=== PATIENT | male | born 1960 | race Caucasian/White ===

== ENCOUNTER 2017-07-20 00:06 | Emergency (ER) | payer BC, OTHER ==
--- NOTE | 2017-07-20 00:57 | EDM.PDOC ---
ED HPI GENERAL MEDICAL PROBLEM - General Chief Complaint: Eye Problems Stated Complaint: SOMETHING IN LEFT EYE Time Seen by Provider: 07/20/17 00:50 - History of Present Illness INITIAL COMMENTS - FREE TEXT/NARRATIVE: 56-year-old male presents emergency room he thinks he got some in his left eye. Patient noted some irritation in his left eye this started midafternoon. His son looked in there and saw something in his eye. The patient cannot recall exactly what was he remembered rubbing his eyes with some gloves on. The patient has an area of fuzziness in his lower vision field. Left Eye Pain Score (Numeric/FACES): 6 - Related Data Allergies Allergy/AdvReac Type Severity Reaction Status Date / Time azithromycin Allergy Diarrhea Verified 07/20/17 00:21 [From Zithromax Z-Meliton] ED ROS GENERAL - Review of Systems Review Of Systems: See Below Constitutional: Reports: No Symptoms HEENT: Reports: Eye Pain, Other Respiratory: Reports: No Symptoms Cardiovascular: Reports: No Symptoms Endocrine: Reports: No Symptoms GI/Abdominal: Reports: No Symptoms : Reports: No Symptoms ED EXAM GENERAL W FULL EYE - Physical Exam Exam: See Below Exam Limited By: No Limitations General Appearance: Alert, No Apparent Distress Eye Exam: Left Eye: Foreign Body (This looks like is developing a rust ring), Bilateral Eye: PERRL Eyelids: Bilateral: Normal Appearance Conjunctiva & Sclera: Left: Injected (Mild) Cornea Exam: Left: Foreign Body (No corneal abrasions other than the foreign body noted) Extraocular Movements: Bilateral: Intact Pupils: Normal Accommodation Anterior Chamber: Bilateral: Normal Appearance Respiratory/Chest: Lungs Clear, Normal Breath Sounds, No Accessory Muscle Use Cardiovascular: Normal Peripheral Pulses, Regular Rate, Rhythm, No Edema ED EYE w/ Add Procedure - Eye Procedure Alcaine Drops Administered: No (Repair [place] used) Eye FB Removal: Other (Removed with the eye spud, restaurant taken down with the jean-claude without ) Antibiotic Oinment/Drps Admin: Left Eye (Patient is allergic to erythromycin) - Additional/Other Procedure(s) Other (Free Text) Procedure(s) [Text1]: Left eye was examined using slit-lamp floor seen used examined with cobalt blue light no abrasions or lacerations identified other than the foreign body using clear light with slit-lamp floor body was removed in a couple of small pieces the jean-claude was then used to clean up the rust ring without difficulty. Patient tolerated this without difficulty unfortunately the patient is allergic to erythromycin erythromycin ointment not used no other ointment available in the hospital Course - Vital Signs Last Recorded V/S: Last Vital Signs Temp 36.7 C 07/20/17 00:19 Pulse 73 07/20/17 00:19 Resp 16 07/20/17 00:19 BP 144/84 H 07/20/17 00:19 Pulse Ox 99 07/20/17 00:19 - Orders/Labs/Meds Meds: Medications Discontinued Medications Generic Name Dose Route Start Last Admin Trade Name Antoinette PRN Reason Stop Dose Admin Hydrocodone Bitart/Acetaminophen 1 tab 07/20/17 01:51 [place] 325-5 Mg PO 07/20/17 01:52 ONETIME ONE Fluorescein Sodium/Benoxinate HCl 0.5 ml 07/20/17 01:03 Fluress Ophth Soln EYEBOTH 07/20/17 01:04 ONETIME ONE Proparacaine HCl 0.5 ml 07/20/17 01:04 Proparacaine 0.5% Ophth Soln EYEBOTH 07/20/17 01:05 ONETIME ONE Departure - Departure Time of Disposition: 02:14 Disposition: Home, Self-Care 01 Clinical Impression: Corneal foreign body, Corneal rust ring of left eye - Discharge Information Referrals: Liberty Palmer PA-C [Primary Care Provider] - Forms: ED Department Discharge Additional Instructions: Follow-up with your eye doctor later today. Return to the emergency room with any questions or prob. Your given some hydrocodone from the machine in the waiting room #20 one or 2 every 4-6 hours as needed for pain. Allow 12 hours after using this medication before driving or returning to work. supervisor gear repair some artificial tears and use liberally in the left eye to keep it good and moist.
[2017-07-20] MEDS ORDERED: Benoxinate/Fluorescein 0.4-0.25% Ophth Soln 5 ML Bottle EYEBOTH ONE (01:03)
[2017-07-20] MEDS ORDERED: Proparacaine 0.5% Ophth Soln 15 ML Bottle EYEBOTH ONE (01:04)
[2017-07-20] MEDS ORDERED: Acetaminophen/HYDROcodone 325-5 MG Tab PO ONE (01:51)
== END 2017-07-20 02:25 | disposition home or self-care (01) ==
LOC: JD.ED 00:06
DX: T15.02XA Foreign body in cornea, left eye, initial encounter (principal); Z88.1 Allergy status to other antibiotic agents
CPT/HCPCS: 65222; 99283; A9270

== ENCOUNTER 2018-05-04 11:33 | Emergency (ER) | payer OTHER ==
[2018-05-04] MEDS ORDERED: Lactated Ringers 1,000 ML IV SCH (11:45)
[2018-05-04] MEDS ORDERED: Lactated Ringers 500 ML IV ONE (11:45)
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
--- NOTE | 2018-05-06 08:14 | CT ---
Head CT Technique: Multiple axial sections through the brain were obtained. Intravenous contrast was not utilized. Comparison: No prior intracranial imaging. Findings: Ventricles along the basal cisterns and sulci over the convexities are within normal limits for the patient's age. No abnormal parenchymal densities are seen. No evidence of intracranial hemorrhage. No midline shift or mass effect is seen. Bone window settings were reviewed which show no acute calvarial abnormality. Moderate mucosal thickening is seen with left maxillary sinuses as well as opacification of left-sided sphenoid sinus. Mild mucosal thickening is seen within the ethmoid sinuses. Impression: 1. Sinus disease which is most likely chronic. 2. No acute intracranial abnormality is seen. Diagnostic code #2 I agree with preliminary report from [facility], finalized on 05/04/18, 1:27 PM Central Time
--- NOTE | 2018-05-06 09:33 | CT ---
CT chest Technique: Multiple axial sections were obtained from above the lung apices inferiorly through the lung bases. Intravenous contrast was utilized. Comparison: No prior chest imaging. Findings: Mediastinum and hilar region show no adenopathy or mass. No mediastinal abnormalities are appreciated. Aorta shows no discrete aneurysm. No axillary adenopathy is seen. No pericardial thickening is seen. Lungs show no acute parenchymal change. Incidental azygos lobe is seen. No pleural effusions or pneumothorax are seen. Bone window settings were reviewed which show no discrete discrete rib fracture. Vertebral body heights and disc spaces are preserved within the thoracic spine. Lateral reconstructed views of the sternum appear intact. Impression: 1. Incidental findings. Nothing acute is identified on CT study of the chest. Diagnostic code #2 I agree with preliminary report from [facility], finalized on 05/04/18, 1:[address] abdomen and pelvis Technique: Multiple axial sections were obtained from above the dome of the diaphragm inferiorly through the pubic symphysis. Intravenous contrast was utilized. No oral contrast was utilized. Delayed images were also obtained through the abdomen and pelvis. Comparison: No prior abdominal imaging is available. Findings: Artifact noted from the patient's arms being along his side. Liver shows no discrete abnormality. Spleen appears within normal limits. Gallbladder contains no calcified gallstones. Adrenal glands appear intact. Pancreas appears within normal limits. Kidneys show symmetric contrast enhancement without hydronephrosis or mass. Atherosclerotic calcification is noted within the aorta which shows no aneurysm. No retroperitoneal adenopathy or mesenteric abnormalities are seen. No pelvic mass or adenopathy is seen. No free fluid or inflammatory change is seen. Appendix is visualized and is felt to be within normal limits. Bone window settings were reviewed which show no discrete pelvic or hip fracture. Disc space narrowing and vacuum phenomena is seen within the L5-S1 disc. Slight vacuum phenomena noted within the L4-L5 disc. Degenerative change is noted within the lower apophyseal joints within the lumbar spine. No acute osseous abnormality appreciated within the lumbar spine. Impression: 1. Incidental findings. Nothing acute is appreciated on CT study of the abdomen and pelvis. Diagnostic code #2 I agree with preliminary report from [facility], finalized on 05/04/18, 1:39 PM Central Time
--- NOTE | 2018-05-06 09:46 | CT ---
CT cervical spine Technique: Multiple axial sections were obtained from above C1 inferiorly to the bottom of T2. Reconstructed sagittal and coronal images were reviewed. Comparison: No prior cervical spine imaging. Findings: Moderate disc space narrowing is noted at C6-C7. Posterior osteophytes are noted at C4-C5, C5-C6 and C6-C7. Anterior osteophytes are most prominent at C6-C7. Apophyseal joints show mild scattered degenerative change. Mucosal thickening is seen within the left maxillary sinus as well as sphenoid sinus. No fracture is seen. No bony central or bony neural foraminal is seen. No abnormal subluxation is seen. Atherosclerotic calcification is noted within the carotid bulb on both sides. Impression: 1. Sinus disease most likely chronic. 2. Mild degenerative change. 3. No acute abnormality is appreciated on CT study of the cervical spine. Diagnostic code #2 I agree with preliminary report from [facility], finalized on 05/04/18, 2:21 PM Central Time
== END 2018-05-04 14:45 | disposition home or self-care (01) ==
LOC: JD.ED 11:33 → SUPCPDRO 11:33 → JD.ED 14:45
DX: S16.1XXA Strain of muscle, fascia and tendon at neck level, initial encounter (principal); V89.2XXA Person injured in unspecified motor-vehicle accident, traffic, initial encounter; Z88.1 Allergy status to other antibiotic agents
CPT/HCPCS: 36415; 70450; 71260; 72125; 74177; 80053; 81001; 83690; 85007; 85027; 93005; 96360; 96361; 99285; J7120; 99283

== ENCOUNTER 2020-06-06 18:00 | Emergency (ER) | payer OTHER ==
[2020-06-06] MEDS ORDERED: Metoclopramide 10 MG/2 ML SDV IVPUSH ONE (18:23)
[2020-06-06] MEDS ORDERED: diphenhydrAMINE 50 MG/ML SDV IVPUSH ONE (18:23)
[2020-06-06] MEDS ORDERED: Pantoprazole 40 MG Vial IVPUSH ONE (18:26)
[2020-06-06] MEDS ORDERED: Famotidine 20 MG/2 ML SDV IVPUSH PRN (18:27)
[2020-06-06] MEDS ORDERED: EPINEPHrine 1 MG/ML SDV IM PRN (18:27)
[2020-06-06] MEDS ORDERED: diphenhydrAMINE 50 MG/ML SDV IVPUSH PRN (18:27)
[2020-06-06] MEDS ORDERED: methylPREDNISolone Sodium Succinate 125 MG/2 ML SDV IVPUSH PRN (18:27)
[2020-06-06] MEDS ORDERED: Dextrose 5%-Lactated Ringers 1,000 ML IV SCH (18:30)
[2020-06-06] MEDS ORDERED: Sodium Chloride 0.9% 10 ML Syringe FLUSH SCH (18:30)
--- NOTE | 2020-06-06 18:31 | EDM.PDOC ---
<Samuel Davis - Last Filed: 06/06/20 22:25> ED HPI GENERAL MEDICAL PROBLEM - General Chief Complaint: Gastrointestinal Problem Stated Complaint: VOMITING X17HR/COVID+ Time Seen by Provider: 06/06/20 18:12 - Related Data Allergies Allergy/AdvReac Type Severity Reaction Status Date / Time azithromycin Allergy Diarrhea Verified 06/06/20 18:11 [From Zithromax Z-Meliton] Home Meds: Home Meds Escitalopram [Lexapro] 20 mg PO DAILY 05/04/18 [History] Fluticasone Propionate [Flonase Allergy Relief] 2 spray NASBOTH DAILY 05/04/18 [History] Tamsulosin HCl [Flomax] 2 cap PO DAILY 05/04/18 [History] atorvaSTATin [Lipitor] 20 mg PO DAILY 05/04/18 [History] Course - Re-Assessments/Exams Free Text/Narrative Re-Assessment/Exam: 06/06/20 19:[address] Palma. I agree with the history and physical examination as documented. Portable chest radiograph reviewed. The cardiac silhouette is within normal limits. No pulmonary vascular congestion. No pleural effusions seen on this AP view. There are increased patchy densities noted bilaterally, worse on the left than the right. No pneumothorax. Formal read per the Radiologist pending. The patient has not yet provided a urine sample for the urinalysis. 06/06/20 21:48 Notified that the patient's infusion has finished. I reevaluated the patient. He states that he feels well, with no nausea. I will discharge him home with an [facility] prescription for Zofran. I would like him to notify the office of his PCP in the morning, to let them know about his ED visit. Departure - Departure Time of Disposition: 21:50 Disposition: Home, Self-Care 01 Condition: Good Clinical Impression: Pneumonia due to COVID-19 virus - Discharge Information *PRESCRIPTION DRUG MONITORING PROGRAM REVIEWED*: Not Applicable *COPY OF PRESCRIPTION DRUG MONITORING REPORT IN PATIENT TOBY: Not Applicable Instructions: COVID-19 Referrals: Liberty Palmer PA-C [Primary Care Provider] - Forms: ED Department Discharge Additional Instructions: You were seen in the emergency room for nausea and vomiting after being diagnosed with COVID-19. Work-up in the ER included numerous blood tests, a chest x-ray, and an ECG. Your chest x-ray found infiltrates in both of your lungs, consistent with COVID- 19 pneumonia. The remainder of your work-up was unremarkable. You were treated with an infusion of the combined medications bamlanivab and etesevimab. These medications have been emergency approved by the FDA for treatment of certain patients with COVID-19, however, as discussed, there is no guarantee that they are effective. You have been given an [facility] prescription for the antinausea medicine Zofran ODT. You may dissolve 1 tablet of Zofran ODT on your tongue up to every 8 hours, as needed for nausea/vomiting. Stay adequately hydrated. Gatorade or Powerade are best. We recommend that you notify the office of your PCP, FRANCIA Ojeda, in the morning, of your ER visit. It is important that you strictly quarantine for 10 days after you were diagnosed with COVID-19, at which time you should be retested for the virus. You should be exposed to anyone outside of your household until you test negative. If any other problems, please do not hesitate to return to the ER. <Everett Palma - Last Filed: 06/07/20 07:07> ED HPI GENERAL MEDICAL PROBLEM - General Source of Information: Reports: Patient History Limitations: Reports: No Limitations - History of Present Illness INITIAL COMMENTS - FREE TEXT/NARRATIVE: 59-year-old male presents to the ED due to persistent nausea and vomiting for greater than 17 hours. Emesis has been bilious without any blood. He cannot keep anything down including Tylenol for fever relief. He was diagnosed with COVID-19 positivity on June 03. He felt ill for perhaps 2 to 3 days before this indicating his disease process probably started on June 01. His 2 is positive and was tested positive the same day as him. He has a paroxysmal somewhat productive sounding cough although he indicates sputum is white with no blood. Continues to have fever and chills. Minimal diarrhea he states once perhaps twice per day for the last 2 days. He works for the [employer] here in [place]. He states he takes no medications from a doctor. Denies any allergies to medications. States his abdomen is sore in the epigastrium from vomiting so much. His throat and back of his throat are dry and somewhat sore as well. He is feeling a little lightheaded and dizzy with standing. Usually enjoys good health. Onset: Sudden Onset Date: 06/01/20 (Still positive for COVID-19 illness on June 03. Symptoms developed about 2 days before that with mild sore throat and nasal congestion) Duration: Day(s):, Getting Worse, Other Location: Reports: Abdomen (Early experiencing intractable nausea and vomiting. Her abdominal discomfort from vomiting so much. Associate with intractable nausea and vomiting for the last 17 hours.), Other (Paroxysmal somewhat productive sounding cough. Generalized myalgia mild headache and fever.) Quality: Reports: Other (Febrile with chills particularly at the initial onset of illness. Still has mild headache.) Severity: Moderate Improves with: Reports: None Worsens with: Reports: Other (And to drink or eat anything.) Context: Reports: Other (COVID-19 illness). Denies: Activity, Exercise, Lifting, Sick Contact, Trauma Associated Symptoms: Reports: Chest Pain, Cough, cough w sputum (Only from coughing), Diaphoresis (More so at the initial onset of illness), Fever/Chills, Loss of Appetite, Malaise ( white sputum), Nausea/Vomiting ( night June 03.), Shortness of Breath, Weakness. Denies: Confusion, Headaches, Rash, Seizure ( Tractable nausea and vomiting for the last 17 hours.), Syncope Treatments SNUFF MAKER: Reports: Acetaminophen (He will not stay down the last day or 2.) Abdomen Pain Score (Numeric/FACES): 7 Past Medical History HEENT History: Reports: Allergic Rhinitis (Chronic allergic rhinitis), Hard of Hearing, Impaired Vision Other HEENT History: wears eyeglasses, wears hearing aides. Cardiovascular History: Reports: High Cholesterol, Hypertension Respiratory History: Reports: Other (See Below) Other Respiratory History: punctured lung from broken rib. Gastrointestinal History: Reports: Other (See Below) Other Gastrointestinal History: C-diff Genitourinary History: Reports: Prostate Disorder (He is on tamsulosin.), Other (See Below) Other Genitourinary History: enlarged prostate Musculoskeletal History: Reports: Fracture Psychiatric History: Reports: Anxiety (Been on Lexapro for depression anxiety for a long time.), Depression - Infectious Disease History Infectious Disease History: Reports: C-Difficile, Novel Coronavirus Social & Family History - Tobacco Use Tobacco Use Status *Q: Never Tobacco User Second Hand Smoke Exposure: No - Caffeine Use Caffeine Use: Reports: Coffee - Recreational Drug Use Recreational Drug Use: No - Living Situation & Occupation Living situation: Reports: Occupation: Employed ED ROS GENERAL - Review of Systems Review Of Systems: See Below Constitutional: Reports: Fever, Chills, Malaise, Weakness, Fatigue, Decreased Appetite, Weight Loss HEENT: Reports: Glasses, Rhinitis (Chronic allergic rhinitis and uses Flonase as needed), Sinus Problem, Throat Pain (Mild sinus congestion throat pain from vomiting so much) Respiratory: Reports: Shortness of Breath, Cough, Sputum. Denies: Wheezing, Pleuritic Chest Pain, Hemoptysis (Paroxysmal cough with occasional white sputum production) Cardiovascular: Reports: Lightheadedness. Denies: Chest Pain, Blood Pressure Problem, Claudication, Dyspnea on Exertion, Edema, Orthopnea, Palpitations Endocrine: Reports: Fatigue GI/Abdominal: Reports: Abdominal Pain, Diarrhea (Mild diarrhea once or twice per day small quantity stools.), Nausea, Vomiting (Has not been able to stop vomiting for the last 17 hours). Denies: Hematemesis, Hematochezia, Melena, Stool Incontinence : Reports: Other (Urine is dark diana in color) Musculoskeletal: Reports: Muscle Pain Skin: Reports: No Symptoms (Neurolyse myalgia) Neurological: Reports: Dizziness, Headache, Difficulty Walking (The due to weakness.), Weakness. Denies: Numbness, Syncope, Tingling, Trouble Speaking, Gait Disturbance, Other Psychiatric: Reports: Anxiety, Depression Hematologic/Lymphatic: Reports: No Symptoms Immunologic: Reports: No Symptoms (Of depression but he states he is no longer taking Escitalopram.) ED EXAM, GI/ABD - Physical Exam Exam: See Below Exam Limited By: No Limitations General Appearance: Alert, WD/WN, Anxious (Mildly anxious.), Mild Distress, Other (Patient is very warm to palpation. Temperature is 36.4 but he feels much warmer than this. Heart rate is 86 and sinus respiratory to 16 with O2 sats of 95% room air. BP is 143/78) Eyes: Bilateral: Normal Appearance (No scleral icterus or blepharal pallor.) Ears: Normal TMs Throat/Mouth: Other Head: Atraumatic, Normocephalic (Tongue is very dry and coated. No exudate in the oropharynx.) Neck: Normal Inspection, Supple, Non-Tender, Full Range of Motion. No: Carotid Bruit, Lymphadenopathy (L), Lymphadenopathy (R) Respiratory/Chest: Lungs Clear, Normal Breath Sounds, No Accessory Muscle Use, Respiratory Distress (Mild tachypnea at rest). No: Rhonchi, Wheezing Cardiovascular: Normal Peripheral Pulses, Regular Rate, Rhythm, No Edema, No Gallop, No JVD, No Murmur GI/Abdominal Exam: Normal Bowel Sounds, Soft, No Organomegaly, No Mass, Pelvis Stable, Tender (Mild tenderness to palpation in the epigastrium appears to be musculoskeletal in origin.), Other (Male) Exam: No Hernia (No surgical scars) Back Exam: Normal Inspection. No: CVA Tenderness (L), CVA Tenderness (R) Extremities: Normal Inspection, Normal Range of Motion, Non-Tender, No Pedal Edema Neurological: Alert, Oriented, CN II-XII Intact, Normal Cognition Psychiatric: Normal Affect, Normal Mood, Anxious Skin Exam: Warm (Mildly anxious.), Dry, Intact, Normal Color, No Rash #1 Interpretation EKG Date: 06/06/20 Time: 18:53 Rhythm: NSR Rate (Beats/Min): 90 (Occasional PVCs occasionally impaired) [place]: Normal P-Wave: Present QRS: Normal ST-T: Other (Nonspecific T wave flattening in leads III and aVF) QT: Normal Course - Vital Signs Last Recorded V/S: Last Vital Signs Temp 36.6 C 06/06/20 22:20 Pulse 77 06/06/20 22:20 Resp 16 06/06/20 22:20 BP 125/73 06/06/20 22:20 Pulse Ox 96 06/06/20 22:20 - Orders/Labs/Meds Orders: Active Orders 24 hr Category Date Time Status CULTURE BLOOD [BC] Stat Lab 06/06/20 18:45 Received CULTURE BLOOD [BC] Stat Lab 06/06/20 18:55 Received URINALYSIS W/MICROSCOPIC [UA W/MICROSCOPIC] [URIN] Stat Lab 06/06/20 18:25 Ordered Blood Culture x2 Reflex Set [OM.PC] Stat Oth 06/06/20 18:25 Ordered Labs: Laboratory Tests 06/06/20 06/06/20 06/06/20 Range/Units 18:20 18:20 18:20 WBC 5.13 (4.23-9.07) K/mm3 RBC 4.31 L (4.63-6.08) M/mm3 Hgb 12.4 L (13.7-17.5) gm/dl Hct 36.9 L (40.1-51.0) % MCV 85.6 D (79.0-92.2) fl MCH 28.8 (25.7-32.2) pg MCHC 33.6 (32.2-35.5) g/dl RDW Std Deviation 44.8 H (35.1-43.9) fL Plt Count 186 (163-337) K/mm3 MPV 9.4 (9.4-12.3) fl Neut % (Auto) 87.7 H (34.0-67.9) % Lymph % (Auto) 7.6 L (21.8-53.1) % [place] % (Auto) 4.5 L (5.3-12.2) % Eos % (Auto) 0 L (0.8-7.0) Baso % (Auto) 0.2 (0.1-1.2) % Neut # (Auto) 4.50 (1.78-5.38) K/mm3 Lymph # (Auto) 0.39 L (1.32-3.57) K/mm3 [place] # (Auto) 0.23 L (0.30-0.82) K/mm3 Eos # (Auto) 0.00 L (0.04-0.54) K/mm3 Baso # (Auto) 0.01 (0.01-0.08) K/mm3 PT 11.0 (9.7-12.0) SECONDS INR 1.03 APTT 34.0 H (21.7-31.4) SECONDS D-Dimer, Quantitative 1.13 H (0.19-0.50) mg/L Sodium 144 (136-145) mEq/L Potassium 3.4 L (3.5-5.1) mEq/L Chloride 107 (98-107) mEq/L Carbon Dioxide 23 (21-32) mEq/L Anion Gap 17.4 H (5-15) BUN 22 H (7-18) mg/dL Creatinine 1.1 (0.7-1.3) mg/dL Est Cr Clr Drug Dosing 69.27 mL/min Estimated GFR (MDRD) > 60 (>60) mL/min BUN/Creatinine Ratio 20.0 H (14-18) Glucose 114 H (74-106) mg/dL Calcium 8.0 L (8.5-10.1) mg/dL Magnesium 2.1 (1.8-2.4) mg/dl Ferritin (26-388) ng/ml Total Bilirubin 0.6 (0.2-1.0) mg/dL AST 38 H (15-37) U/L ALT 20 (16-63) U/L Alkaline Phosphatase 68 (46-116) U/L Lactate Dehydrogenase 355 H (85-227) U/L Troponin I < 0.017 (0.00-0.056) ng/mL C-Reactive Protein 17.2 H* (<1.0) mg/dL NT-Pro-B Natriuret Pep (0-125) pg/mL Total Protein 7.2 (6.4-8.2) g/dl Albumin 3.2 L (3.4-5.0) g/dl Globulin 4.0 gm/dL Albumin/Globulin Ratio 0.8 L (1-2) Lipase 262 (73-393) U/L 06/06/20 06/06/20 Range/Units 18:20 18:20 WBC (4.23-9.07) K/mm3 RBC (4.63-6.08) M/mm3 Hgb (13.7-17.5) gm/dl Hct (40.1-51.0) % MCV (79.0-92.2) fl MCH (25.7-32.2) pg MCHC (32.2-35.5) g/dl RDW Std Deviation (35.1-43.9) fL Plt Count (163-337) K/mm3 MPV (9.4-12.3) fl Neut % (Auto) (34.0-67.9) % Lymph % (Auto) (21.8-53.1) % [place] % (Auto) (5.3-12.2) % Eos % (Auto) (0.8-7.0) Baso % (Auto) (0.1-1.2) % Neut # (Auto) (1.78-5.38) K/mm3 Lymph # (Auto) (1.32-3.57) K/mm3 [place] # (Auto) (0.30-0.82) K/mm3 Eos # (Auto) (0.04-0.54) K/mm3 Baso # (Auto) (0.01-0.08) K/mm3 PT (9.7-12.0) SECONDS INR APTT (21.7-31.4) SECONDS D-Dimer, Quantitative (0.19-0.50) mg/L Sodium (136-145) mEq/L Potassium (3.5-5.1) mEq/L Chloride (98-107) mEq/L Carbon Dioxide (21-32) mEq/L Anion Gap (5-15) BUN (7-18) mg/dL Creatinine (0.7-1.3) mg/dL Est Cr Clr Drug Dosing mL/min Estimated GFR (MDRD) (>60) mL/min BUN/Creatinine Ratio (14-18) Glucose (74-106) mg/dL Calcium (8.5-10.1) mg/dL Magnesium (1.8-2.4) mg/dl Ferritin 247 (26-388) ng/ml Total Bilirubin (0.2-1.0) mg/dL AST (15-37) U/L ALT (16-63) U/L Alkaline Phosphatase (46-116) U/L Lactate Dehydrogenase (85-227) U/L Troponin I (0.00-0.056) ng/mL C-Reactive Protein (<1.0) mg/dL NT-Pro-B Natriuret Pep 94 (0-125) pg/mL Total Protein (6.4-8.2) g/dl Albumin (3.4-5.0) g/dl Globulin gm/dL Albumin/Globulin Ratio (1-2) Lipase (73-393) U/L Meds: Medications Discontinued Medications Generic Name Dose Route Start Last Admin Trade Name Freq PRN Reason Stop Dose Admin Acetaminophen 975 mg 06/06/20 18:50 06/06/20 18:51 Acetaminophen 325 Mg Tab PO 06/06/20 18:51 975 mg ONETIME ONE Administration Diphenhydramine HCl 25 mg 06/06/20 18:23 06/06/20 18:47 Diphenhydramine 50 Mg/Ml Sdv IVPUSH 06/06/20 18:24 25 mg ONETIME ONE Administration Diphenhydramine HCl 50 mg 06/06/20 18:27 Diphenhydramine 50 Mg/Ml Sdv IVPUSH 06/07/20 18:28 ONETIME PRN hypersensitivity reaction Epinephrine HCl 0.3 mg 06/06/20 18:27 Epinephrine 1 Mg/Ml Sdv IM 06/07/20 18:28 ONETIME PRN hypersensitivity reaction Famotidine 20 mg 06/06/20 18:27 Famotidine 20 Mg/2 Ml Sdv IVPUSH 06/07/20 18:28 ONETIME PRN hypersensitivity reaction Dextrose/Lactated Ringer's 1,000 mls @ 999 mls/hr 06/06/20 18:30 06/06/20 18:45 Dextrose 5%-Lactated Ringers IV 999 mls/hr ASDIRECTED TORI Administration Bamlanivimab 700 mg/ 310 mls @ 310 mls/hr 06/06/20 19:30 06/06/20 19:48 Etesevimab 1,400 mg/ Sodium IV 06/06/20 20:29 310 mls/hr Chloride ONETIME ONE Administration Methylprednisolone Sodium Succinate 125 mg 06/06/20 18:27 Methylprednisolone Sodium Succinate 125 Mg/2 Ml Sdv IVPUSH 06/07/20 18:28 ONETIME PRN hypersensitivity reaction Metoclopramide HCl 10 mg 06/06/20 18:23 06/06/20 18:38 Metoclopramide 10 Mg/2 Ml Sdv IVPUSH 06/06/20 18:24 10 mg ONETIME ONE Administration Pantoprazole Sodium 40 mg 06/06/20 18:26 06/06/20 18:40 Pantoprazole 40 Mg Vial IVPUSH 06/06/20 18:27 40 mg ONETIME ONE Administration Sodium Chloride 30 ml 06/06/20 18:30 Sodium Chloride 0.9% 10 Ml Syringe FLUSH 06/07/20 18:31 ASDIRECTED TORI - Radiology Interpretation Free Text/Narrative:: 59-year-old male presents to the ED with intractable nausea and vomiting for the last 17 hours. Patient became ill on June 01 and tested positive for COVID-19 illness on June 03. His was tested positive the same day. He has paroxysmal minimally productive cough. Generalized myalgia and headache. He has minimal diarrhea 1-2 minimal loose stools the last day or 2. Emesis has been bilious without blood. Upper abdominal discomfort from vomiting so much. His O2 sats are 95% on room air. He is a candidate for monoclonal antibody therapy. We spoke at length about this and he has accepted this plan of action. He will have a portable chest x-ray. Routine labs including LDH, D- dimer, serum troponin and ECG to be done. Plan IV will be D5 LR at open. He will be given Reglan 10 mg IV and Benadryl 25 mg IV as he is taking Lexapro daily. This is to prevent any dystonic reaction between Reglan and Lexapro. He will be given Tylenol 9 7 5 mg by mouth 20 minutes after the Reglan to help bring down his fever. He is a candidate for monoclonal antibody therapy mainly due to mild hypertension. . Currently we are using a combination of bamlanivab and etesevimab these medications have been authorized by the FDA for emergency use. I have discussed the use of these medications with the patient Mr. Irwin Jacobs and he agrees to accept the risks. Given the patient the fax sheet to read about a combination monoclonal antibody therapy. I stated the drug has been approved by an emergency use authorization process and has not been fully vetted by the FDA reviewed or approved at this time. The patient meets the EUA requirements by way of his mild hypertension. I discussed there are other potential treatment options that are currently not FDA approved to treat COVID- 19. Offered opportunity to ask questions and out questions were answered. The patient Mr. Irwin Jacobs voiced understanding and agreed to proceed with treatment. - Re-Assessments/Exams Free Text/Narrative Re-Assessment/Exam: 06/06/20 19:09 White count is normal at 5.13. It does show a left shift of 87.7% neutrophils on the auto differential. Hemoglobin is 12.4 with hematocrit of 36.9 platelet count 186,000. PT is 11.0. INR is 1.03. PTT is 34.0 mildly elevated D-dimer is mildly elevated at 1.13. Sodium is 144 with a potassium of 3.4 slightly low. Chloride is 107 with a bicarb of 23. Anion gap is 17.4. BUN is 22 with a creatinine of 1.1 and a GFR greater than 60. Leukos is 114 mildly elevated calcium is 8.0. Magnesium is 2.1. Serum ferritin is 247 total bilirubin is 0.6 AST is 38 ALT is 20. Alk phosphatase is 68. LDH is elevated at 355 troponin I is less than 0.017 C-reactive protein is markedly elevated at 17.2. BNP is 94 total protein 7.2 with an albumin fraction of 3.2. Lipase is normal at 262. Chest x-ray is pending. Care will be turned over to Dr. Davis as it is change of shift. He will monitor the patient for any adverse effects to combination infusion outpatient monoclonal antibody therapy. Peers the patient will need at least a liter of IV fluid to help correct his anion gap. At this point time is up in the air as to whether or not he needs hospital admission. 06/07/20 07:06 Single portable chest x-ray was completed. It does reveal bilateral pneumonia particularly involving the right perihilar right middle lobe right lower lobe and the left lower lobe of the lung. Sepsis Event Note (ED) - Evaluation Sepsis Screening Result: No Definite Risk - Focused Exam Vital Signs: Vital Signs Temp Pulse Resp BP Pulse Ox 06/06/20 22:20 36.6 C 77 16 125/73 96 06/06/20 20:50 37.8 C 06/06/20 20:46 74 16 119/74 94 L 06/06/20 20:30 73 16 113/70 98 06/06/20 20:15 84 16 116/69 94 L 06/06/20 20:00 74 16 124/73 94 L 06/06/20 19:43 38.1 C 74 18 138/72 94 L - My Orders Last 24 Hours: My Active Orders 06/06/20 18:25 URINALYSIS W/MICROSCOPIC [UA W/MICROSCOPIC] [URIN] Stat Blood Culture x2 Reflex Set [OM.PC] Stat 06/06/20 18:45 CULTURE BLOOD [BC] Stat 06/06/20 18:55 CULTURE BLOOD [BC] Stat - Assessment/Plan Last 24 Hours: My Active Orders 06/06/20 18:25 URINALYSIS W/MICROSCOPIC [UA W/MICROSCOPIC] [URIN] Stat Blood Culture x2 Reflex Set [OM.PC] Stat 06/06/20 18:45 CULTURE BLOOD [BC] Stat 06/06/20 18:55 CULTURE BLOOD [] Stat
[2020-06-06] MEDS ORDERED: Acetaminophen 325 MG Tab PO ONE (18:50)
--- NOTE | 2020-06-06 19:45 | CR ---
Chest: Portable view of the chest was obtained. Comparison: Prior chest CT study of 05/04/18. Patchy areas of increased density are noted within both upper and lower lungs. Findings are worse on the left side. Heart size and mediastinum are normal. Bony structures show nothing acute. Impression: 1. Patchy areas of increased density on both sides of the chest compatible with Covid pneumonia. Diagnostic code #3
== END 2020-06-06 22:20 | disposition home or self-care (01) ==
LOC: JD.ED 18:00
DX: U07.1 COVID-19 (principal); J12.82 Pneumonia due to coronavirus disease 2019; I10 Essential (primary) hypertension; E78.00 Pure hypercholesterolemia, unspecified; Z79.899 Other long term (current) drug therapy; Z88.1 Allergy status to other antibiotic agents
CPT/HCPCS: 36415; 71045; 80053; 82728; 83615; 83690; 83735; 83880; 84484; 85025; 85379; 85610; 85730; 86140; 87040; 93005; 96374; 96375; 99284; A9270; C9113; J1200; J2765; J7050; J7121; M0245; Q0239; Q0245; 93010

== ENCOUNTER 2020-06-10 09:15 | Inpatient (IN) | payer OTHER ==
[2020-06-10] MEDS ORDERED: Dextrose 5%-0.9% NaCl 1,000 ML IV SCH (09:45)
--- NOTE | 2020-06-10 09:48 | EDM.PDOC ---
ED HPI GENERAL MEDICAL PROBLEM - General Chief Complaint: Respiratory Problem Stated Complaint: LOW O2/COVID + Time Seen by Provider: 06/10/20 09:30 Source of Information: Reports: Patient History Limitations: Reports: No Limitations - History of Present Illness INITIAL COMMENTS - FREE TEXT/NARRATIVE: 59-year-old male who presents with COVID-19 illness. He believes that he became sick on May 30. Tested positive on June 03 as did his . He was treated with combination clonal antibody therapy on that date. He still has a severe paroxysmal cough to the point of near syncope at times. His appetite is coming back. No further diarrhea. He presents little more short of breath than he had been. O2 sats initially were 91% when he came into the ED. Chest x-ray done last June 07 revealed fairly set for significant pneumonia bilaterally. His O2 sats at that time were around 94-95%. Still feels generally weak. Lightheaded and dizzy upon standing especially if he coughs at the same time. Feels fever has abated. No further chills. Onset: Sudden Onset Date: 05/30/20 (Set of fever chills headache compatible with COVID-19 illness. Confirmed positive on June 03.) Duration: Day(s):, Constant, Getting Worse Location: Reports: Chest (Severe paroxysmal nonproductive cough), Other (Mildly decreased appetite. No further diarrhea or vomiting.) Quality: Reports: Other Severity: Moderate (Still has mild generalized myalgia.) Improves with: Reports: Medication (Motrin and Tylenol bring down the temperature.) Worsens with: Reports: Other Context: Reports: Other. Denies: Activity, Exercise (Coughing is worse with certain movements.), Lifting, Sick Contact, Trauma Associated Symptoms: Reports: Chest Pain, Cough (Coughing so much.), Fever/Chills (Grade fever), Headaches, Loss of Appetite, Malaise, Nausea/Vomiting, Shortness of Breath, Weakness (Initially did have nausea vo miting and some diarrhea but this has abated.). Denies: Confusion (Spontaneous occurrence.), cough w sputum, Diaphoresis, Rash, Seizure, Syncope Treatments [employer] WORK[employer]: Reports: Acetaminophen, NSAIDS (Ultram.) Headache Pain Score (Numeric/FACES): 4 - Related Data Allergies Allergy/AdvReac Type Severity Reaction Status Date / Time azithromycin AdvReac Diarrhea Verified 06/10/20 09:34 [From Zithromax Z-Meliton] Home Meds: Home Meds Escitalopram [Lexapro] 20 mg PO DAILY 05/04/18 [History] Fluticasone Propionate [Flonase Allergy Relief] 2 spray NASBOTH DAILY 05/04/18 [History] Tamsulosin HCl [Flomax] 2 cap PO DAILY 05/04/18 [History] atorvaSTATin [Lipitor] 20 mg PO DAILY 05/04/18 [History] Past Medical History HEENT History: Reports: Allergic Rhinitis, Hard of Hearing, Impaired Vision Other HEENT History: wears eyeglasses, wears hearing aides. Cardiovascular History: Reports: High Cholesterol, Hypertension Respiratory History: Reports: Other (See Below) Other Respiratory History: punctured lung from broken rib. Gastrointestinal History: Reports: Other (See Below) Other Gastrointestinal History: C-diff Genitourinary History: Reports: Prostate Disorder, Other (See Below) Other Genitourinary History: enlarged prostate Musculoskeletal History: Reports: Fracture Psychiatric History: Reports: Anxiety, Depression - Infectious Disease History Infectious Disease History: Reports: Chicken Pox, Measles, Mumps, Novel Coronavirus - Past Surgical History Musculoskeletal Surgical History: Reports: Other (See Below) Other Musculoskeletal Surgeries/Procedures:: pinning to R) thumb Social & Family History - Tobacco Use Tobacco Use Status *Q: Former Tobacco User Used Tobacco, but Quit: No - Caffeine Use Caffeine Use: Reports: None - Recreational Drug Use Recreational Drug Use: No - Living Situation & Occupation Living situation: Reports: Occupation: Employed ED [facility] [employer] [employer] [employer] [facility] - Review of Systems Review Of Systems: See Below Constitutional: Reports: Fever, Chills, Malaise, Weakness, Fatigue, Decreased Appetite, Weight Loss HEENT: Reports: No Symptoms Respiratory: Reports: Shortness of Breath, Cough. Denies: Wheezing, Sputum, Hemoptysis Cardiovascular: Reports: Chest Pain, Dyspnea on Exertion, Lightheadedness. Denies: Blood Pressure Problem (Coughing.), Claudication, Edema (Times.), Orthopnea, Palpitations Endocrine: Reports: Fatigue GI/Abdominal: Reports: Decreased Appetite (But better than it was a week ago.). Denies: Diarrhea, Nausea, Vomiting : Reports: No Symptoms Musculoskeletal: Reports: Muscle Pain (Mild generalized myalgia.) Skin: Reports: No Symptoms Neurological: Reports: Headache, Weakness. Denies: Confusion, Dizziness, Numbness, Syncope, Tingling (Occasional headache.), Trouble Speaking, Difficulty Walking, Change in Speech Psychiatric: Reports: No Symptoms Hematologic/Lymphatic: Reports: No Symptoms Immunologic: Reports: No Symptoms ED EXAM, GENERAL - Physical Exam Exam: See Below Exam Limited By: No Limitations General Appearance: Alert, WD/WN, Mild Distress, Other (Temperature is 36.7 degrees although he feels slightly warmer than this on my exam. Heart rate was 88 in sinus respiratory is 18 with reported sats of 89 to 91% when he first came into the ED. BP was 131/72.) Eye Exam: Bilateral Eye: Normal Inspection, PERRL Ears: Normal TMs Throat/Mouth: Normal Oropharynx (Tongue is dry and coated.), Other Head: Atraumatic, Normocephalic Neck: Normal Inspection, Supple, Non-Tender, Full Range of Motion. No: Carotid Bruit, Lymphadenopathy (L), Lymphadenopathy (R) Respiratory/Chest: No Respiratory Distress, Lungs Clear, Normal Breath Sounds, No Accessory Muscle Use. No: Respiratory Distress, Rales, Rhonchi Cardiovascular: Normal Peripheral Pulses, Regular Rate, Rhythm, No Edema, No Gallop, No Murmur, No Rub Peripheral Pulses: 2+: Carotid (L), Carotid (R), Posterior Tibial (L), Posterior Tibial (R), Dorsalis Pedis (L), Dorsalis Pedis (R) GI/Abdominal: Normal Bowel Sounds, Soft, Non-Tender, No Organomegaly, No Distention, No Abnormal Bruit Back Exam: Normal Inspection, Full Range of Motion. No: CVA Tenderness (L), CVA Tenderness (R) Extremities: Normal Inspection, Normal Range of Motion, Non-Tender, No Pedal Edema Neurological: Alert, Oriented, CN II-XII Intact, Normal Cognition, Normal Gait Psychiatric: Normal Affect, Normal Mood Skin Exam: Warm, Dry, Intact, Normal Color, No Rash #1 Interpretation EKG Date: 06/10/20 Time: 10:03 Rhythm: NSR Rate (Beats/Min): 73 Ord: Normal P-Wave: Enlarged QRS: Other (Left ventricular hypertrophy pattern) ST-T: Other (Nonspecific T wave flattening in leads III, aVF and V2.) QT: Normal EKG Interpretation Comments: Borderline ECG Course - Vital Signs Last Recorded V/S: Last Vital Signs Temp 36.7 C 06/10/20 09:25 Pulse 88 06/10/20 09:25 Resp 18 06/10/20 09:25 BP 131/72 06/10/20 09:25 Pulse Ox 98 06/10/20 10:30 - Orders/Labs/Meds Orders: Active Orders 24 hr Category Date Time Status EKG Documentation Completion [RC] STAT Care 06/10/20 09:33 Active Oxygen Therapy [RC] ASDIRECTED Care 06/10/20 09:34 Active CULTURE BLOOD [BC] Stat Lab 06/10/20 10:13 Received CULTURE BLOOD [BC] Stat Lab 06/10/20 10:20 Received URINALYSIS W/MICROSCOPIC [UA W/MICROSCOPIC] [URIN] Stat Lab 06/10/20 09:33 Ordered Dextrose 5%-0.9% NaCl [Dextrose 5%-Normal Saline] 1,000 Med 06/10/20 09:45 Active ml IV ASDIRECTED Potassium Chloride [KCl in Water 10 MEQ/100 ML] 10 meq Med 06/10/20 11:30 Active Premix Bag 1 bag IV Q1H Blood Culture x2 Reflex Set [OM.PC] Stat Oth 06/10/20 09:33 Ordered Medication Orders Dextrose/Sodium Chloride (Dextrose 5%-Normal Saline) 1,000 mls @ 100 mls/hr IV ASDIRECTED TORI Last Admin: 06/10/20 10:19 Dose: 100 mls/hr Documented by: [id number] Potassium Chloride 10 meq/ (Premix) 100 mls @ 100 mls/hr IV Q1H TORI Stop: 06/10/20 14:29 Labs: Laboratory Tests 06/10/20 06/10/20 06/10/20 Range/Units 10:13 10:13 10:13 WBC 8.97 (4.23-9.07) K/mm3 RBC 3.92 L (4.63-6.08) M/mm3 Hgb 11.2 L (13.7-17.5) gm/dl Hct 33.8 L (40.1-51.0) % MCV 86.2 (79.0-92.2) fl MCH 28.6 (25.7-32.2) pg MCHC 33.1 (32.2-35.5) g/dl RDW Std Deviation 44.6 H (35.1-43.9) fL Plt Count 351 H D (163-337) K/mm3 MPV 9.1 L (9.4-12.3) fl Neut % (Auto) 86.3 H (34.0-67.9) % Lymph % (Auto) 5.7 L (21.8-53.1) % [place] % (Auto) 7.7 (5.3-12.2) % Eos % (Auto) 0 L (0.8-7.0) Baso % (Auto) 0.1 (0.1-1.2) % Neut # (Auto) 7.74 H (1.78-5.38) K/mm3 Lymph # (Auto) 0.51 L (1.32-3.57) K/mm3 [place] # (Auto) 0.69 (0.30-0.82) K/mm3 Eos # (Auto) 0.00 L (0.04-0.54) K/mm3 Baso # (Auto) 0.01 (0.01-0.08) K/mm3 Manual Slide Review Abnormal smear PT 11.4 (9.7-12.0) SECONDS INR 1.07 APTT 30.1 (21.7-31.4) SECONDS D-Dimer, Quantitative (0.19-0.50) mg/L Sodium 145 (136-145) mEq/L Potassium 3.2 L (3.5-5.1) mEq/L Chloride 107 (98-107) mEq/L Carbon Dioxide 27 (21-32) mEq/L Anion Gap 14.2 (5-15) BUN 22 H (7-18) mg/dL Creatinine 1.1 (0.7-1.3) mg/dL Est Cr Clr Drug Dosing 78.91 mL/min Estimated GFR (MDRD) > 60 (>60) mL/min BUN/Creatinine Ratio 20.0 H (14-18) Glucose 115 H (74-106) mg/dL Calcium 8.2 L (8.5-10.1) mg/dL Magnesium 2.3 (1.8-2.4) mg/dl Total Bilirubin 0.5 (0.2-1.0) mg/dL AST 38 H (15-37) U/L ALT 23 (16-63) U/L Alkaline Phosphatase 67 (46-116) U/L Lactate Dehydrogenase 347 H (85-227) U/L Troponin I < 0.017 (0.00-0.056) ng/mL C-Reactive Protein 23.3 H* (<1.0) mg/dL NT-Pro-B Natriuret Pep (0-125) pg/mL Total Protein 7.1 (6.4-8.2) g/dl Albumin 2.4 L (3.4-5.0) g/dl Globulin 4.7 gm/dL Albumin/Globulin Ratio 0.5 L (1-2) 06/10/20 06/10/20 Range/Units 10:13 10:13 WBC (4.23-9.07) K/mm3 RBC (4.63-6.08) M/mm3 Hgb (13.7-17.5) gm/dl Hct (40.1-51.0) % MCV (79.0-92.2) fl MCH (25.7-32.2) pg MCHC (32.2-35.5) g/dl RDW Std Deviation (35.1-43.9) fL Plt Count (163-337) K/mm3 MPV (9.4-12.3) fl Neut % (Auto) (34.0-67.9) % Lymph % (Auto) (21.8-53.1) % [place] % (Auto) (5.3-12.2) % Eos % (Auto) (0.8-7.0) Baso % (Auto) (0.1-1.2) % Neut # (Auto) (1.78-5.38) K/mm3 Lymph # (Auto) (1.32-3.57) K/mm3 [place] # (Auto) (0.30-0.82) K/mm3 Eos # (Auto) (0.04-0.54) K/mm3 Baso # (Auto) (0.01-0.08) K/mm3 Manual Slide Review PT (9.7-12.0) SECONDS INR APTT (21.7-31.4) SECONDS D-Dimer, Quantitative 1.07 H (0.19-0.50) mg/L Sodium (136-145) mEq/L Potassium (3.5-5.1) mEq/L Chloride (98-107) mEq/L Carbon Dioxide (21-32) mEq/L Anion Gap (5-15) BUN (7-18) mg/dL Creatinine (0.7-1.3) mg/dL Est Cr Clr Drug Dosing mL/min Estimated GFR (MDRD) (>60) mL/min BUN/Creatinine Ratio (14-18) Glucose (74-106) mg/dL Calcium (8.5-10.1) mg/dL Magnesium (1.8-2.4) mg/dl Total Bilirubin (0.2-1.0) mg/dL AST (15-37) U/L ALT (16-63) U/L Alkaline Phosphatase (46-116) U/L Lactate Dehydrogenase (85-227) U/L Troponin I (0.00-0.056) ng/mL C-Reactive Protein (<1.0) mg/dL NT-Pro-B Natriuret Pep 280 H (0-125) pg/mL Total Protein (6.4-8.2) g/dl Albumin (3.4-5.0) g/dl Globulin gm/dL Albumin/Globulin Ratio (1-2) Meds: Medications Generic Name Dose Route Start Last Admin Trade Name Freq PRN Reason Stop Dose Admin Dextrose/Sodium Chloride 1,000 mls @ 100 mls/hr 06/10/20 09:45 06/10/20 10:19 Dextrose 5%-Normal Saline IV 100 mls/hr ASDIRECTED TORI Administration Potassium Chloride 10 meq/ 100 mls @ 100 mls/hr 06/10/20 11:30 Premix IV 06/10/20 14:29 Q1H TORI Discontinued Medications Generic Name Dose Route Start Last Admin Trade Name Freq PRN Reason Stop Dose Admin Dexamethasone 6 mg 06/10/20 10:25 06/10/20 10:52 Dexamethasone 10 Mg/Ml Sdv IVPUSH 06/10/20 10:26 6 mg ONETIME ONE Administration Ibuprofen 600 mg 06/10/20 10:34 06/10/20 10:51 Ibuprofen 600 Mg Tab PO 06/10/20 10:35 600 mg ONETIME ONE Administration - Radiology Interpretation Free Text/Narrative:: 59-year-old male presents to the ED once again due to Covid related illness. He believes his symptoms started on May 30. He tested positive on June 03. He was seen in the ED on Sunday, June 07 and chest x-ray did reveal bilateral pneumonia but his sats were around 94 to 95%. He was therefore given monoclonal antibody therapy. He states the cough is about the same but coughing to the point of near syncope at times. Appetite is starting to improve. No further nausea vomiting or diarrhea. O2 sats initially were 89% on room air when he arrived in the ED. Once he was settled in bed they hovered around the 91 to 94%. Plan routine labs to be done and a chest x-ray to be repeated. He is dry. IV will be D5 normal saline at 100 mils an hour. - Re-Assessments/Exams Free Text/Narrative Re-Assessment/Exam: 06/10/20 10:25 6 rate does reveal worsening bilateral viral pneumonia from COVID-19 illness. It involves portions of the left upper lobe as well as the left lower lobe and right middle lobe and right lower lobe of the lung. Cardiac silhouette is normal. We will give him 6 mg of dexamethasone IV at this time. 06/10/20 10:34 I discussed the findings with the patient in terms of worsening pneumonia on his x-ray and likely need to stay in the hospital due to hypoxemia. His O2 sats are 88 to 92% on room air. He is complaining of headache and he does have a low-grade fever clinically. We will give him Motrin 600 mg p.o. for headache relief. 06/10/20 11:20 White count is 8.97. Differential shows 86.3% neutrophils. H emoglobin is slightly low at 11.2 with hematocrit of 33.8. MCV is 86.2 platelet count 351,000 slightly elevated. PT is 11.4 with an INR of 1.07 PTT is 30.1 D- dimer mildly elevated at 1.07. This is felt to be secondary to COVID-19 illness. Serum potassium is slightly low at 3.2. Chloride 107 with a bicarb of 27. Anion gap is 14.2. BUN slightly elevated at 22. Creatinine 1.1 with a GFR greater than 60. Glucose 115 with a calcium of 8.2. Magnesium 2.3. Bilirubin is 0.5 AST minimally elevated at 38. ALT is 23 alk phosphatase is 67 LDH is elevated at 347 could best compatible with COVID-19 illness. Troponin I is less than 0.017. C-reactive protein is pending. BNP is slightly elevated at 280. Total protein is 7.1 with an albumin fraction of 2.4. 06/10/20 11:[address] Giovanny Cool on-call hospitalist and he will admit the patient to the med surgery floor. Departure - Departure Time of Disposition: 11:42 Disposition: Admitted As Inpatient 68 Condition: Fair Clinical Impression: Hypoxia, COVID-19 determined by clinical diagnostic criteria, Hypokalemia, Pneumonia due to COVID-19 virus - Discharge Information *PRESCRIPTION DRUG MONITORING PROGRAM REVIEWED*: Not Applicable *COPY OF PRESCRIPTION DRUG MONITORING REPORT IN PATIENT TOBY: Not Applicable Referrals: Liberty Palmer PA-C [Primary Care Provider] - Forms: ED Department Discharge Sepsis Event Note (ED) - Evaluation Sepsis Screening Result: No Definite Risk - Focused Exam Vital Signs: Vital Signs Temp Pulse Resp BP Pulse Ox Pulse Ox 06/10/20 10:30 98 06/10/20 09:25 36.7 C 88 18 131/72 89 L - My Orders Last 24 Hours: My Active Orders 06/10/20 09:33 EKG Documentation Completion [RC] STAT URINALYSIS W/MICROSCOPIC [UA W/MICROSCOPIC] [URIN] Stat Blood Culture x2 Reflex Set [OM.PC] Stat 06/10/20 09:34 Oxygen Therapy [RC] ASDIRECTED 06/10/20 09:45 Dextrose 5%-0.9% NaCl [Dextrose 5%-Normal Saline] 1,000 ml IV ASDIRECTED 06/10/20 10:13 CULTURE BLOOD [BC] Stat 06/10/20 10:20 CULTURE BLOOD [BC] Stat 06/10/20 11:30 Potassium Chloride [KCl in Water 10 MEQ/100 ML] 10 meq Premix Bag 1 bag IV Q1H - Assessment/Plan Last 24 Hours: My Active Orders 06/10/20 09:33 EKG Documentation Completion [RC] STAT URINALYSIS W/MICROSCOPIC [UA W/MICROSCOPIC] [URIN] Stat Blood Culture x2 Reflex Set [OM.PC] Stat 06/10/20 09:34 Oxygen Therapy [RC] ASDIRECTED 06/10/20 09:45 Dextrose 5%-0.9% NaCl [Dextrose 5%-Normal Saline] 1,000 ml IV ASDIRECTED 06/10/20 10:13 CULTURE BLOOD [BC] Stat 06/10/20 10:20 CULTURE BLOOD [BC] Stat 06/10/20 11:30 Potassium Chloride [KCl in Water 10 MEQ/100 ML] 10 meq Premix Bag 1 bag IV Q1H
[2020-06-10] MEDS ORDERED: Dexamethasone 10 MG/ML SDV IVPUSH ONE (10:25)
[2020-06-10] MEDS ORDERED: Ibuprofen 600 MG Tab PO ONE (10:34)
--- NOTE | 2020-06-10 10:47 | CR ---
Chest: Portable view of the chest was obtained. Comparison: Prior chest x-ray of 06/06/20. Patchy areas of increased density are seen on both sides of the chest. Findings believed to be increased in density from prior study as well as mild increase in size. Heart size and mediastinum are normal. Bony structures are grossly intact. Impression: 1. Worsening densities on both sides the chest from previous exam. Diagnostic code #3
[2020-06-10] MEDS ORDERED: Ondansetron 4 MG Tab.DIS PO PRN (11:58)
[2020-06-10] MEDS ORDERED: Albuterol/Ipratropium 3.0-0.5 MG/3 ML Neb Soln NEB PRN (11:58)
[2020-06-10] MEDS ORDERED: Morphine 2 MG/ML SYRINGE IVPUSH PRN (11:58)
[2020-06-10] MEDS ORDERED: Docusate Sodium 100 MG Cap PO PRN (11:58)
[2020-06-10] MEDS ORDERED: oxyCODONE 5 MG Tab PO PRN (11:58)
[2020-06-10] MEDS ORDERED: Temazepam 15 MG Cap PO PRN (11:58)
--- NOTE | 2020-06-10 12:17 | PCM.HP.2 ---
H&P History of Present Illness - General Date of Service: 06/10/20 Admit Problem/Dx: Admission Diagnosis/Problem Admission Diagnosis/Problem Viral pneumonia Source of Information: Patient History Limitations: Reports: No Limitations - History of Present Illness Initial Comments - Free Text/Narative: The patient is a 59-year-old gentleman who has presented to the emergency d [facility] with a complaint of fatigue, shortness of breath and had been previously diagnosed with COVID-19 on or about May 30, 2020. Patient has been complaining of cough. The cough has been nonproductive. He has had some fever and chills. The patient says that he had nausea and vomiting 2 days ago but none recently. The patient does not use tobacco. Patient's family also has been diagnosed with COVID-19. The patient has been taking medication for anxiety, hyperlipidemia and BPH. In the emergency department on room air the patient had been desaturating to 88%. Onset of Symptoms: Reports: Gradual Duration of Symptoms: Reports: Week(s): Location: Reports: Chest Severity: Mild Improves with: Reports: Rest Worsens with: Reports: Breathing, Movement Context: Reports: Sick Contact, Other (COVID-19) Associated Symptoms: Reports: Cough, Nausea/Vomiting Headache Pain Score (Numeric/FACES): 4 - Related Data Allergies/Adverse Reactions: Allergies Allergy/AdvReac Type Severity Reaction Status Date / Time azithromycin AdvReac Diarrhea Verified 06/10/20 09:34 [From Zithromax Z-Meliton] Home Medications: Home Meds Escitalopram [Lexapro] 20 mg PO DAILY 05/04/18 [History] Fluticasone Propionate [Flonase Allergy Relief] 2 spray NASBOTH DAILY 05/04/18 [History] Tamsulosin HCl [Flomax] 2 cap PO DAILY 05/04/18 [History] atorvaSTATin [Lipitor] 20 mg PO DAILY 05/04/18 [History] Past Medical History HEENT History: Reports: Allergic Rhinitis, Hard of Hearing, Impaired Vision Other HEENT History: wears eyeglasses, wears hearing aides. Cardiovascular History: Reports: High Cholesterol, Hypertension Respiratory History: Reports: Other (See Below) Other Respiratory History: punctured lung from broken rib. Gastrointestinal History: Reports: Other (See Below) Other Gastrointestinal History: C-diff Genitourinary History: Reports: Prostate Disorder, Other (See Below) Other Genitourinary History: enlarged prostate Musculoskeletal History: Reports: Fracture Neurological History: Reports: None Psychiatric History: Reports: Anxiety, Depression Hematologic History: Reports: None Immunologic History: Reports: None Dermatologic History: Reports: None - Infectious Disease History Infectious Disease History: Reports: Chicken Pox, Measles, Mumps, Novel Coronavirus - Past Surgical History Musculoskeletal Surgical History: Reports: Other (See Below) Other Musculoskeletal Surgeries/Procedures:: pinning to R) thumb Social & Family History - Tobacco Use Tobacco Use Status *Q: Former Tobacco User Used Tobacco, but Quit: No - Caffeine Use Caffeine Use: Reports: None - Recreational Drug Use Recreational Drug Use: No - Living Situation & Occupation Living situation: Reports: Occupation: Employed H&P Review of Systems - Review of Systems: Review Of Systems: See Below General: Reports: Weakness, Fatigue HEENT: Reports: Headaches Pulmonary: Reports: Shortness of Breath, Wheezing, Cough. Denies: Sputum Cardiovascular: Reports: No Symptoms Gastrointestinal: Reports: No Symptoms Genitourinary: Reports: No Symptoms Musculoskeletal: Reports: No Symptoms Skin: Reports: No Symptoms Psychiatric: Reports: No Symptoms Neurological: Reports: No Symptoms Hematologic/Lymphatic: Reports: No Symptoms Immunologic: Reports: No Symptoms Exam - Exam Exam: See Below - Vital Signs Vital Signs: Last Vital Signs Temp 36.7 C 06/10/20 09:25 Pulse 88 06/10/20 09:25 Resp 18 06/10/20 09:25 BP 131/72 06/10/20 09:25 Pulse Ox 98 06/10/20 10:30 Weight: 77.564 kg - Exam Quality Assessment: Supplemental Oxygen General: Alert, Oriented, Cooperative, Mild Distress HEENT: Conjunctiva Clear, EACs Clear, EOMI, Hearing Intact, Mucosa Moist & [place], Posterior Pharynx Clear, PERRLA Neck: Supple, Trachea Midline Lungs: Decreased Breath Sounds, Crackles (Bilaterally) Cardiovascular: Regular Rate, Regular Rhythm, Normal S1, Normal S2 GI/Abdominal Exam: Normal Bowel Sounds, Soft, Non-Tender, No Distention (Male) Exam: Deferred Rectal (Males) Exam: Deferred Back Exam: Normal Inspection, Full Range of Motion Extremities: Normal Inspection, Normal Range of Motion, No Pedal Edema Skin: Warm, Dry, Intact Neurological: Cranial Nerves Intact, Strength Equal Bilateral, Normal Gait, Normal Speech Neuro Extensive - Mental Status: Alert, Oriented x3, Normal Mood/Affect Psychiatric: Alert, Normal Affect, Normal Mood - Patient Data Lab Results Last 24 hrs: Laboratory Results - last 24 hr 06/10/20 06/10/20 06/10/20 Range/Units 10:13 10:13 10:13 WBC 8.97 (4.23-9.07) K/mm3 RBC 3.92 L (4.63-6.08) M/mm3 Hgb 11.2 L (13.7-17.5) gm/dl Hct 33.8 L (40.1-51.0) % MCV 86.2 (79.0-92.2) fl MCH 28.6 (25.7-32.2) pg MCHC 33.1 (32.2-35.5) g/dl RDW Std Deviation 44.6 H (35.1-43.9) fL Plt Count 351 H D (163-337) K/mm3 MPV 9.1 L (9.4-12.3) fl Neut % (Auto) 86.3 H (34.0-67.9) % Lymph % (Auto) 5.7 L (21.8-53.1) % [place] % (Auto) 7.7 (5.3-12.2) % Eos % (Auto) 0 L (0.8-7.0) Baso % (Auto) 0.1 (0.1-1.2) % Neut # (Auto) 7.74 H (1.78-5.38) K/mm3 Lymph # (Auto) 0.51 L (1.32-3.57) K/mm3 [place] # (Auto) 0.69 (0.30-0.82) K/mm3 Eos # (Auto) 0.00 L (0.04-0.54) K/mm3 Baso # (Auto) 0.01 (0.01-0.08) K/mm3 Manual Slide Review Abnormal smear PT 11.4 (9.7-12.0) SECONDS INR 1.07 APTT 30.1 (21.7-31.4) SECONDS D-Dimer, Quantitative (0.19-0.50) mg/L Sodium 145 (136-145) mEq/L Potassium 3.2 L (3.5-5.1) mEq/L Chloride 107 (98-107) mEq/L Carbon Dioxide 27 (21-32) mEq/L Anion Gap 14.2 (5-15) BUN 22 H (7-18) mg/dL Creatinine 1.1 (0.7-1.3) mg/dL Est Cr Clr Drug Dosing 78.91 mL/min Estimated GFR (MDRD) > 60 (>60) mL/min BUN/Creatinine Ratio 20.0 H (14-18) Glucose 115 H (74-106) mg/dL Calcium 8.2 L (8.5-10.1) mg/dL Magnesium 2.3 (1.8-2.4) mg/dl Total Bilirubin 0.5 (0.2-1.0) mg/dL AST 38 H (15-37) U/L ALT 23 (16-63) U/L Alkaline Phosphatase 67 (46-116) U/L Lactate Dehydrogenase 347 H (85-227) U/L Troponin I < 0.017 (0.00-0.056) ng/mL C-Reactive Protein 23.3 H* (<1.0) mg/dL NT-Pro-B Natriuret Pep (0-125) pg/mL Total Protein 7.1 (6.4-8.2) g/dl Albumin 2.4 L (3.4-5.0) g/dl Globulin 4.7 gm/dL Albumin/Globulin Ratio 0.5 L (1-2) 06/10/20 06/10/20 Range/Units 10:13 10:13 WBC (4.23-9.07) K/mm3 RBC (4.63-6.08) M/mm3 Hgb (13.7-17.5) gm/dl Hct (40.1-51.0) % MCV (79.0-92.2) fl MCH (25.7-32.2) pg MCHC (32.2-35.5) g/dl RDW Std Deviation (35.1-43.9) fL Plt Count (163-337) K/mm3 MPV (9.4-12.3) fl Neut % (Auto) (34.0-67.9) % Lymph % (Auto) (21.8-53.1) % [place] % (Auto) (5.3-12.2) % Eos % (Auto) (0.8-7.0) Baso % (Auto) (0.1-1.2) % Neut # (Auto) (1.78-5.38) K/mm3 Lymph # (Auto) (1.32-3.57) K/mm3 [place] # (Auto) (0.30-0.82) K/mm3 Eos # (Auto) (0.04-0.54) K/mm3 Baso # (Auto) (0.01-0.08) K/mm3 Manual Slide Review PT (9.7-12.0) SECONDS INR APTT (21.7-31.4) SECONDS D-Dimer, Quantitative 1.07 H (0.19-0.50) mg/L Sodium (136-145) mEq/L Potassium (3.5-5.1) mEq/L Chloride (98-107) mEq/L Carbon Dioxide (21-32) mEq/L Anion Gap (5-15) BUN (7-18) mg/dL Creatinine (0.7-1.3) mg/dL Est Cr Clr Drug Dosing mL/min Estimated GFR (MDRD) (>60) mL/min BUN/Creatinine Ratio (14-18) Glucose (74-106) mg/dL Calcium (8.5-10.1) mg/dL Magnesium (1.8-2.4) mg/dl Total Bilirubin (0.2-1.0) mg/dL AST (15-37) U/L ALT (16-63) U/L Alkaline Phosphatase (46-116) U/L Lactate Dehydrogenase (85-227) U/L Troponin I (0.00-0.056) ng/mL C-Reactive Protein (<1.0) mg/dL NT-Pro-B Natriuret Pep 280 H (0-125) pg/mL Total Protein (6.4-8.2) g/dl Albumin (3.4-5.0) g/dl Globulin gm/dL Albumin/Globulin Ratio (1-2) Result Diagrams: 06/10/20 10:13 06/10/20 10:13 Sepsis Event Note - Evaluation Sepsis Screening Result: No Definite Risk - Focused Exam Vital Signs: Vital Signs Temp Pulse Resp BP Pulse Ox Pulse Ox 06/10/20 10:30 98 06/10/20 09:25 36.7 C 88 18 131/72 89 L - Problem List (1) Acute respiratory failure SNOMED Code(s): 28105622 ICD Code: J96.00 - ACUTE RESPIRATORY FAILURE, UNSP W HYPOXIA OR HYPERCAPNIA Status: Acute Priority: High Current Visit: Yes Qualifiers: Respiratory failure complication: hypoxia Qualified Code(s): J96.01 - Acute respiratory failure with hypoxia (2) COVID-19 determined by clinical diagnostic criteria SNOMED Code(s): 076847650, 568862971 ICD Code: U07.1 - COVID-19 Status: Acute Priority: High Current Visit: Yes (3) Pneumonia due to COVID-19 virus SNOMED Code(s): 860513264324269176 ICD Code: U07.1 - COVID-19; J12.82 - PNEUMONIA DUE TO CORONAVIRUS DISEASE 2019 Status: Acute Priority: High Current Visit: Yes Problem List Initiated/Reviewed/Updated: Yes Orders Last 24hrs: Active Orders 24 hr Category Date Time Status Admission Status [Patient Status] [ADT] Routine ADT 06/10/20 11:42 Active Cardiac Monitoring [RC] CONTINUOUS Care 06/10/20 12:00 Ordered Oxygen Therapy [RC] ASDIRECTED Care 06/10/20 09:34 Active Oxygen Therapy [RC] PRN Care 06/10/20 11:58 Ordered RT Aerosol Therapy [RC] ASDIRECTED Care 06/10/20 12:09 Ordered Up ad Maki [RC] ASDIRECTED Care 06/10/20 11:58 Ordered VTE/DVT Education [RC] PER UNIT ROUTINE Care 06/10/20 11:58 Ordered Vital Signs [RC] Q4H Care 06/10/20 11:58 Ordered Respiratory Care Assess and Treatment [CONS] Routine Cons 06/10/20 11:58 Ordered Regular Diet [DIET] Diet 06/10/20 Dinner Ordered C-REACTIVE PROTEIN [CHEM] AM Lab 06/11/20 05:11 Ordered CBC WITH AUTO DIFF [HEME] AM Lab 06/11/20 05:11 Ordered COMPREHENSIVE METABOLIC PN,CMP [CHEM] AM Lab 06/11/20 05:11 Ordered CULTURE BLOOD [BC] Stat Lab 06/10/20 10:13 Received CULTURE BLOOD [BC] Stat Lab 06/10/20 10:20 Received URINALYSIS W/MICROSCOPIC [UA W/MICROSCOPIC] [URIN] Stat Lab 06/10/20 09:33 Ordered Acetaminophen [TylenoL] Med 06/10/20 11:58 Ordered 650 mg PO Q4H PRN Albuterol/Ipratropium [DuoNeb 3.0-0.5 MG/3 ML] Med 06/10/20 11:58 Ordered 3 ml NEB Q4H PRN Dextrose 5%-0.9% NaCl [Dextrose 5%-Normal Saline] 1,000 Med 06/10/20 09:45 Active ml IV ASDIRECTED Docusate Sodium [Colace] Med 06/10/20 11:58 Ordered 100 mg PO BID PRN Enoxaparin [Lovenox] Med 06/11/20 09:00 Ordered 40 mg SUBCUT DAILY Escitalopram Med 06/11/20 09:00 Ordered 20 mg PO DAILY Fluticasone Propionate Med 06/11/20 09:00 Ordered 2 spray NASBOTH DAILY Morphine Med 06/10/20 11:58 Ordered 2 mg IVPUSH Q2H PRN Ondansetron [Zofran ODT] Med 06/10/20 11:58 Ordered 4 mg PO Q4H PRN Potassium Chloride [KCl in Water 10 MEQ/100 ML] 10 meq Med 06/10/20 11:30 Active Premix Bag 1 bag IV Q1H Sodium Chloride 0.9% [Normal Saline] 1,000 ml Med 06/10/20 12:00 Ordered IV ASDIRECTED Tamsulosin [Flomax] Med 06/11/20 09:00 Ordered 2 cap PO DAILY Temazepam [Restoril] Med 06/10/20 11:58 Ordered 15 mg PO BEDTIME PRN atorvaSTATin [Lipitor] Med 06/11/20 09:00 Ordered 20 mg PO DAILY cefTRIAXone [Rocephin] 2 gm Med 06/10/20 12:00 Ordered Sodium Chloride 0.9% [Normal Saline] 100 ml IV Q24H dexAMETHasone Med 06/11/20 09:00 Ordered 6 mg PO BID oxyCODONE Med 06/10/20 11:58 Ordered 5 mg PO Q4H PRN Blood Culture x2 Reflex Set [OM.PC] Stat Oth 06/10/20 09:33 Ordered Resuscitation Status Routine Resus Stat 06/10/20 11:58 Ordered Medication Orders Acetaminophen (Acetaminophen 325 Mg Tab) 650 mg PO Q4H PRN PRN Reason: Pain (Mild 1-3)/fever Albuterol/Ipratropium (Albuterol/Ipratropium 3.0-0.5 Mg/3 Ml Neb Soln) 3 ml NEB Q4H PRN PRN Reason: Shortness Of Breath/wheezing Atorvastatin Calcium (Atorvastatin 20 Mg Tab) 20 mg PO DAILY [facility] Citalopram Hydrobromide (Citalopram 20 Mg Tab) 40 mg PO DAILY [facility] Docusate Sodium (Docusate Sodium 100 Mg Cap) 100 mg PO BID PRN PRN Reason: Constipation Enoxaparin Sodium (Enoxaparin 40 Mg/0.4 Ml Syringe) 40 mg SUBCUT DAILY [facility] Fluticasone Propionate (Fluticasone Propionate Nasal [place] 16 Gm Bottle) 0 gm NASBOTH DAILY [facility] Dextrose/Sodium Chloride (Dextrose 5%-Normal Saline) 1,000 mls @ 100 mls/hr IV ASDIRECTED [facility] Last Admin: 06/10/20 10:19 Dose: 100 mls/hr Documented by: ELMIRA Potassium Chloride 10 meq/ (Premix) 100 mls @ 100 mls/hr IV Q1H TORI Stop: 06/10/20 14:29 Sodium Chloride (Normal Saline) 1,000 mls @ 50 mls/hr IV ASDIRECTED [facility] Ceftriaxone Sodium 2 gm/ (Sodium Chloride) 100 mls @ 200 mls/hr IV Q24H [facility] Morphine Sulfate (Morphine 2 Mg/Ml Syringe) 2 mg IVPUSH Q2H PRN PRN Reason: Pain (severe 7-10) Stop: 06/11/20 12:02 Ondansetron HCl (Ondansetron 4 Mg Tab.Dis) 4 mg PO Q4H PRN PRN Reason: nausea, able to take PO Oxycodone HCl (Oxycodone 5 Mg Tab) 5 mg PO Q4H PRN PRN Reason: Pain (moderate 4-6) Tamsulosin HCl (Tamsulosin 0.4 Mg Cap.Er) 0.8 mg PO DAILY [facility] Temazepam (Temazepam 15 Mg Cap) 15 mg PO BEDTIME PRN PRN Reason: Sleep Assessment/Plan Comment:: The patient is an otherwise healthy 59-year-old gentleman who has been admitted due to acute respiratory failure and pneumonia associated with COVID-19. Patient is outside the window for safe use of remdesivir as well his he is also had transfusion of immunomodulators. The patient says that the medication helped briefly but then he got considerably worse. The patient will be started on Rocephin as he is allergic to azithromycin. This will be a 2 g daily. The patient will also be started on aspirin 81 mg daily this has been shown to reduce mortality. The patient also be kept on his home medications. The patient will also be started on dexamethasone 6 mg p.o. twice daily. Regular diet as tolerated. IV fluids at 50 mL/h. I have also ordered repeat laboratory studies for the morning. Respiratory therapy to evaluate and keep his saturations between 90 and 92%. Patient should also have Acapella and incentive spirometer. The patient should be appropriate for discharge in 2 to 3 days. - Mortality Measure Prognosis:: Good
[2020-06-10] MEDS: cefTRIAXone 2 GM in Sodium Chloride 0.9% 100 ML IV SCH (13:00)
[2020-06-10] MEDS: Potassium Chloride 10 MEQ in Premix Bag 1 BAG IV SCH ×3 (14:07→17:27)
[2020-06-10] MEDS ORDERED: Sodium Chloride 0.9% 10 ML Syringe FLUSH PRN (14:13)
[2020-06-11] MEDS: Sodium Chloride 0.9% 1,000 ML IV SCH ×2 (00:29→20:57)
[2020-06-11] MEDS: Aspirin 81 MG Tab.EC PO SCH (08:39)
[2020-06-11] MEDS: Tamsulosin 0.4 MG Cap.ER PO SCH (08:39)
[2020-06-11] MEDS: Citalopram 20 MG Tab PO SCH (08:40)
[2020-06-11] MEDS: Fluticasone Propionate Nasal Spray 16 GM Bottle NASBOTH SCH (08:40)
[2020-06-11] MEDS: Enoxaparin 40 MG/0.4 ML Syringe SUBCUT SCH (08:40)
[2020-06-11] MEDS: Dexamethasone 4 MG Tab PO SCH ×2 (09:38→20:58)
[2020-06-11] MEDS ORDERED: Iopamidol 755 Mg/ML 100 ML Bottle IVPUSH ONE (11:10)
[2020-06-11] MEDS ORDERED: Sodium Chloride 0.9% 100 ML IV SCH (11:15)
--- NOTE | 2020-06-11 11:27 | PCM.PN ---
<Nico Charlton M - Last Filed: 06/11/20 12:39> - General Info Date of Service: 06/11/20 Admission Dx/Problem (Free Text): Admission Diagnosis/Problem Admission Diagnosis/Problem Viral pneumonia Subjective Update: Patient reports feeling slightly better today however he states when he is up and ambulating he gets dyspneic and slightly dizzy. Upon evaluation this morning on rounds the patient was satting 92-95 percent on 1 L of oxygen per nasal cannula. States his appetite has started to return. Functional Status: Reports: Pain Controlled, Tolerating Diet, Ambulating (Up in the room independently), Urinating, Incentive Spirometry (Encouraged to use hourly; respiratory therapy assisting) - Review of Systems General: Reports: Fatigue, Appetite. Denies: Fever, Weakness, Chills HEENT: Reports: No Symptoms Pulmonary: Reports: Shortness of Breath, Cough. Denies: Pleuritic Chest Pain, Sputum, Wheezing Cardiovascular: Reports: Dyspnea on Exertion, Lightheadedness. Denies: Chest Pain, Palpitations, Edema Gastrointestinal: Reports: No Symptoms. Denies: Constipation, Diarrhea, Nausea, Vomiting Genitourinary: Reports: No Symptoms Musculoskeletal: Reports: No Symptoms Skin: Reports: No Symptoms Neurological: Reports: No Symptoms Psychiatric: Reports: No Symptoms - Patient Data Vitals - Most Recent: Last Vital Signs Temp 98.2 F 06/11/20 07:49 Pulse 93 06/11/20 07:49 Resp 18 06/11/20 07:49 BP 124/72 06/11/20 07:49 Pulse Ox 90 L 06/11/20 09:27 Weight - Most Recent: 78.245 kg I&O - Last 24 Hours: Intake & Output 06/10/20 06/11/20 06/11/20 22:59 06:59 14:59 Intake Total 1049 1470 Output Total 250 Balance 799 1470 Lab Results Last 24 Hours: Laboratory Results - last 24 hr 06/10/20 06/10/20 06/10/20 Range/Units 10:13 10:13 17:32 WBC (4.23-9.07) K/mm3 RBC (4.63-6.08) M/mm3 Hgb (13.7-17.5) gm/dl Hct (40.1-51.0) % MCV (79.0-92.2) fl MCH (25.7-32.2) pg MCHC (32.2-35.5) g/dl RDW Std Deviation (35.1-43.9) fL Plt Count (163-337) K/mm3 MPV (9.4-12.3) fl Neut % (Auto) (34.0-67.9) % Lymph % (Auto) (21.8-53.1) % [place] % (Auto) (5.3-12.2) % Eos % (Auto) (0.8-7.0) Baso % (Auto) (0.1-1.2) % Neut # (Auto) (1.78-5.38) K/mm3 Lymph # (Auto) (1.32-3.57) K/mm3 [place] # (Auto) (0.30-0.82) K/mm3 Eos # (Auto) (0.04-0.54) K/mm3 Baso # (Auto) (0.01-0.08) K/mm3 Manual Slide Review Abnormal smear D-Dimer, Quantitative (0.19-0.50) mg/L Sodium (136-145) mEq/L Potassium (3.5-5.1) mEq/L Chloride (98-107) mEq/L Carbon Dioxide (21-32) mEq/L Anion Gap (5-15) BUN (7-18) mg/dL Creatinine (0.7-1.3) mg/dL Est Cr Clr Drug Dosing mL/min Estimated GFR (MDRD) (>60) mL/min BUN/Creatinine Ratio (14-18) Glucose (74-106) mg/dL Calcium (8.5-10.1) mg/dL Total Bilirubin (0.2-1.0) mg/dL AST (15-37) U/L ALT (16-63) U/L Alkaline Phosphatase (46-116) U/L Lactate Dehydrogenase (85-227) U/L C-Reactive Protein 23.3 H* (<1.0) mg/dL Total Protein (6.4-8.2) g/dl Albumin (3.4-5.0) g/dl Globulin gm/dL Albumin/Globulin Ratio (1-2) Urine Color Dark yellow (Yellow) Urine Appearance Clear (Clear) Urine pH 6.5 (5.0-8.0) Ur Specific [place] > or = 1.030 (1.005-1.030) Urine Protein 3+ H (Negative) Urine Glucose (UA) Negative (Negative) Urine Ketones Trace H (Negative) Urine Occult Blood Negative (Negative) Urine Nitrite Negative (Negative) Urine Bilirubin 1+ H (Negative) Urine Urobilinogen 2.0 H (0.2-1.0) Ur Leukocyte Esterase Negative (Negative) Urine RBC 0-5 (0-5) /hpf Urine WBC 0-5 (0-5) /hpf Ur Squamous Epith Cells 0-5 (0-5) /hpf Urine Bacteria Moderate H (FEW) /hpf Urine Mucus Moderate H (FEW) /hpf 06/11/20 06/11/20 06/11/20 Range/Units 06:28 06:28 06:28 WBC 10.20 H (4.23-9.07) K/mm3 RBC 4.20 L (4.63-6.08) M/mm3 Hgb 11.8 L (13.7-17.5) gm/dl Hct 36.4 L (40.1-51.0) % MCV 86.7 (79.0-92.2) fl MCH 28.1 (25.7-32.2) pg MCHC 32.4 (32.2-35.5) g/dl RDW Std Deviation 45.9 H (35.1-43.9) fL Plt Count 441 H D (163-337) K/mm3 MPV 9.7 (9.4-12.3) fl Neut % (Auto) 85.7 H (34.0-67.9) % Lymph % (Auto) 7.3 L (21.8-53.1) % [place] % (Auto) 6.6 (5.3-12.2) % Eos % (Auto) 0 L (0.8-7.0) Baso % (Auto) 0.1 (0.1-1.2) % Neut # (Auto) 8.75 H (1.78-5.38) K/mm3 Lymph # (Auto) 0.74 L (1.32-3.57) K/mm3 [place] # (Auto) 0.67 (0.30-0.82) K/mm3 Eos # (Auto) 0.00 L (0.04-0.54) K/mm3 Baso # (Auto) 0.01 (0.01-0.08) K/mm3 Manual Slide Review Abnormal smear D-Dimer, Quantitative 2.27 H (0.19-0.50) mg/L Sodium 145 (136-145) mEq/L Potassium 3.8 (3.5-5.1) mEq/L Chloride 108 H (98-107) mEq/L Carbon Dioxide 24 (21-32) mEq/L Anion Gap 16.8 H (5-15) BUN 19 H (7-18) mg/dL Creatinine 1.1 (0.7-1.3) mg/dL Est Cr Clr Drug Dosing 78.91 mL/min Estimated GFR (MDRD) > 60 (>60) mL/min BUN/Creatinine Ratio 17.3 (14-18) Glucose 142 H (74-106) mg/dL Calcium 8.1 L (8.5-10.1) mg/dL Total Bilirubin 0.3 (0.2-1.0) mg/dL AST 36 (15-37) U/L ALT 26 (16-63) U/L Alkaline Phosphatase 71 (46-116) U/L Lactate Dehydrogenase 346 H (85-227) U/L C-Reactive Protein 17.8 H* (<1.0) mg/dL Total Protein 7.1 (6.4-8.2) g/dl Albumin 2.3 L (3.4-5.0) g/dl Globulin 4.8 gm/dL Albumin/Globulin Ratio 0.5 L (1-2) Urine Color (Yellow) Urine Appearance (Clear) Urine pH (5.0-8.0) Ur Specific [place] (1.005-1.030) Urine Protein (Negative) Urine Glucose (UA) (Negative) Urine Ketones (Negative) Urine Occult Blood (Negative) Urine Nitrite (Negative) Urine Bilirubin (Negative) Urine Urobilinogen (0.2-1.0) Ur Leukocyte Esterase (Negative) Urine RBC (0-5) /hpf Urine WBC (0-5) /hpf Ur Squamous Epith Cells (0-5) /hpf Urine Bacteria (FEW) /hpf Urine Mucus (FEW) /hpf Joaquim Results Last 24 Hours: Microbiology 06/10/20 10:13 Aerobic Blood Culture - Preliminary Blood - Venous NO GROWTH AFTER 1 DAY Anaerobic Blood Culture - Preliminary NO GROWTH AFTER 1 DAY 06/10/20 10:20 Aerobic Blood Culture - Preliminary Blood - Venous - Lab Draw NO GROWTH AFTER 1 DAY Anaerobic Blood Culture - Preliminary NO GROWTH AFTER 1 DAY Med Orders - Current: Current Medications Acetaminophen (Acetaminophen 325 Mg Tab) 650 mg PO Q4H PRN PRN Reason: Pain (Mild 1-3)/fever Albuterol/Ipratropium (Albuterol/Ipratropium 3.0-0.5 Mg/3 Ml Neb Soln) 3 ml NEB Q4H PRN PRN Reason: Shortness Of Breath/wheezing Aspirin (Aspirin 81 Mg Tab.Ec) 81 mg PO DAILY [facility] Last Admin: 06/11/20 08:39 Dose: 81 mg Documented by: Atorvastatin Calcium (Atorvastatin 20 Mg Tab) 20 mg PO DAILY [facility] Citalopram Hydrobromide (Citalopram 20 Mg Tab) 40 mg PO DAILY [facility] Last Admin: 06/11/20 08:40 Dose: 40 mg Documented by: Dexamethasone (Dexamethasone 4 Mg Tab) 6 mg PO BID [facility] Last Admin: 06/11/20 09:38 Dose: 6 mg Documented by: Docusate Sodium (Docusate Sodium 100 Mg Cap) 100 mg PO BID PRN PRN Reason: Constipation Enoxaparin Sodium (Enoxaparin 40 Mg/0.4 Ml Syringe) 40 mg SUBCUT DAILY [facility] Last Admin: 06/11/20 08:40 Dose: 40 mg Documented by: Fluticasone Propionate (Fluticasone Propionate Nasal [place] 16 Gm Bottle) 0 gm NASBOTH DAILY [facility] Last Admin: 06/11/20 08:40 Dose: 1 spray Documented by: Dextrose/Sodium Chloride (Dextrose 5%-Normal Saline) 1,000 mls @ 100 mls/hr IV ASDIRECTED [facility] Last Admin: 06/10/20 10:19 Dose: 100 mls/hr Documented by: Sodium Chloride (Normal Saline) 1,000 mls @ 50 mls/hr IV ASDIRECTED [facility] Last Admin: 06/11/20 00:29 Dose: 50 mls/hr Documented by: Ceftriaxone Sodium 2 gm/ (Sodium Chloride) 100 mls @ 200 mls/hr IV Q24H [facility] Last Admin: 06/10/20 13:00 Dose: 200 mls/hr Documented by: Sodium Chloride (Normal Saline) 100 mls @ 60 mls/hr IV ASDIRECTED TORI Stop: 06/11/20 15:00 Last Admin: 06/11/20 11:17 Dose: 60 mls/hr Documented by: Morphine Sulfate (Morphine 2 Mg/Ml Syringe) 2 mg IVPUSH Q2H PRN PRN Reason: Pain (severe 7-10) Stop: 06/11/20 12:02 Ondansetron HCl (Ondansetron 4 Mg Tab.Dis) 4 mg PO Q4H PRN PRN Reason: nausea, able to take PO Oxycodone HCl (Oxycodone 5 Mg Tab) 5 mg PO Q4H PRN PRN Reason: Pain (moderate 4-6) Sodium Chloride (Sodium Chloride 0.9% 10 Ml Syringe) 10 ml FLUSH ASDIRECTED PRN PRN Reason: Keep Vein Open Last Admin: 06/11/20 11:17 Dose: 10 ml Documented by: Sodium Chloride (Sodium Chloride 0.9% 10 Ml Syringe) 10 ml FLUSH ONETIME ONE Stop: 06/11/20 12:01 Tamsulosin HCl (Tamsulosin 0.4 Mg Cap.Er) 0.8 mg PO DAILY [facility] Last Admin: 06/11/20 08:39 Dose: 0.8 mg Documented by: Temazepam (Temazepam 15 Mg Cap) 15 mg PO BEDTIME PRN PRN Reason: Sleep Discontinued Medications Dexamethasone (Dexamethasone 10 Mg/Ml Sdv) 6 mg IVPUSH ONETIME ONE Stop: 06/10/20 10:26 Last Admin: 06/10/20 10:52 Dose: 6 mg Documented by: Potassium Chloride 10 meq/ (Premix) 100 mls @ 100 mls/hr IV Q1H [facility] Stop: 06/10/20 14:29 Last Admin: 06/10/20 17:27 Dose: 100 mls/hr Documented by: Ibuprofen (Ibuprofen 600 Mg Tab) 600 mg PO ONETIME ONE Stop: 06/10/20 10:35 Last Admin: 06/10/20 10:51 Dose: 600 mg Documented by: Iopamidol (Iopamidol 755 Mg/Ml 100 Ml Bottle) 100 ml IVPUSH ONETIME ONE Stop: 06/11/20 11:11 Last Admin: 06/11/20 11:17 Dose: 100 ml Documented by: - Exam Quality Assessment: Supplemental Oxygen (1 L per nasal cannula), DVT Prophylaxis (Lovenox) General: Alert, Oriented, Mild Distress HEENT: Pupils Equal, Pupils Reactive, Mucous Membr. Moist/[place] Neck: Supple, Trachea Midline Lungs: Decreased Breath Sounds, Crackles (Bilateral bases). No: Clear to Auscultation, Normal Respiratory Effort, Wheezing Cardiovascular: Regular Rate, Regular Rhythm, No Murmurs GI/Abdominal Exam: Normal Bowel Sounds, Soft, Non-Tender, No Distention (Male) Exam: Deferred Back Exam: Normal Inspection, Full Range of Motion Extremities: Normal Inspection, Normal Range of Motion, Non-Tender, No Pedal Edema, Normal Capillary Refill Peripheral Pulses: 2+: Radial (L), Radial (R) Skin: Warm, Dry, Intact Neurological: No New Focal Deficit Psy/Mental Status: Alert, Normal Affect, Normal Mood - Patient Data Lab Results Last 24 hrs: Laboratory Results - last 24 hr 06/10/20 06/10/20 06/10/20 Range/Units 10:13 10:13 17:32 WBC (4.23-9.07) K/mm3 RBC (4.63-6.08) M/mm3 Hgb (13.7-17.5) gm/dl Hct (40.1-51.0) % MCV (79.0-92.2) fl MCH (25.7-32.2) pg MCHC (32.2-35.5) g/dl RDW Std Deviation (35.1-43.9) fL Plt Count (163-337) K/mm3 MPV (9.4-12.3) fl Neut % (Auto) (34.0-67.9) % Lymph % (Auto) (21.8-53.1) % [place] % (Auto) (5.3-12.2) % Eos % (Auto) (0.8-7.0) Baso % (Auto) (0.1-1.2) % Neut # (Auto) (1.78-5.38) K/mm3 Lymph # (Auto) (1.32-3.57) K/mm3 [place] # (Auto) (0.30-0.82) K/mm3 Eos # (Auto) (0.04-0.54) K/mm3 Baso # (Auto) (0.01-0.08) K/mm3 Manual Slide Review Abnormal smear D-Dimer, Quantitative (0.19-0.50) mg/L Sodium (136-145) mEq/L Potassium (3.5-5.1) mEq/L Chloride (98-107) mEq/L Carbon Dioxide (21-32) mEq/L Anion Gap (5-15) BUN (7-18) mg/dL Creatinine (0.7-1.3) mg/dL Est Cr Clr Drug Dosing mL/min Estimated GFR (MDRD) (>60) mL/min BUN/Creatinine Ratio (14-18) Glucose (74-106) mg/dL Calcium (8.5-10.1) mg/dL Total Bilirubin (0.2-1.0) mg/dL AST (15-37) U/L ALT (16-63) U/L Alkaline Phosphatase (46-116) U/L Lactate Dehydrogenase (85-227) U/L C-Reactive Protein 23.3 H* (<1.0) mg/dL Total Protein (6.4-8.2) g/dl Albumin (3.4-5.0) g/dl Globulin gm/dL Albumin/Globulin Ratio (1-2) Urine Color Dark yellow (Yellow) Urine Appearance Clear (Clear) Urine pH 6.5 (5.0-8.0) Ur Specific [place] > or = 1.030 (1.005-1.030) Urine Protein 3+ H (Negative) Urine Glucose (UA) Negative (Negative) Urine Ketones Trace H (Negative) Urine Occult Blood Negative (Negative) Urine Nitrite Negative (Negative) Urine Bilirubin 1+ H (Negative) Urine Urobilinogen 2.0 H (0.2-1.0) Ur Leukocyte Esterase Negative (Negative) Urine RBC 0-5 (0-5) /hpf Urine WBC 0-5 (0-5) /hpf Ur Squamous Epith Cells 0-5 (0-5) /hpf Urine Bacteria Moderate H (FEW) /hpf Urine Mucus Moderate H (FEW) /hpf 06/11/20 06/11/20 06/11/20 Range/Units 06:28 06:28 06:28 WBC 10.20 H (4.23-9.07) K/mm3 RBC 4.20 L (4.63-6.08) M/mm3 Hgb 11.8 L (13.7-17.5) gm/dl Hct 36.4 L (40.1-51.0) % MCV 86.7 (79.0-92.2) fl MCH 28.1 (25.7-32.2) pg MCHC 32.4 (32.2-35.5) g/dl RDW Std Deviation 45.9 H (35.1-43.9) fL Plt Count 441 H D (163-337) K/mm3 MPV 9.7 (9.4-12.3) fl Neut % (Auto) 85.7 H (34.0-67.9) % Lymph % (Auto) 7.3 L (21.8-53.1) % [place] % (Auto) 6.6 (5.3-12.2) % Eos % (Auto) 0 L (0.8-7.0) Baso % (Auto) 0.1 (0.1-1.2) % Neut # (Auto) 8.75 H (1.78-5.38) K/mm3 Lymph # (Auto) 0.74 L (1.32-3.57) K/mm3 [place] # (Auto) 0.67 (0.30-0.82) K/mm3 Eos # (Auto) 0.00 L (0.04-0.54) K/mm3 Baso # (Auto) 0.01 (0.01-0.08) K/mm3 Manual Slide Review Abnormal smear D-Dimer, Quantitative 2.27 H (0.19-0.50) mg/L Sodium 145 (136-145) mEq/L Potassium 3.8 (3.5-5.1) mEq/L Chloride 108 H (98-107) mEq/L Carbon Dioxide 24 (21-32) mEq/L Anion Gap 16.8 H (5-15) BUN 19 H (7-18) mg/dL Creatinine 1.1 (0.7-1.3) mg/dL Est Cr Clr Drug Dosing 78.91 mL/min Estimated GFR (MDRD) > 60 (>60) mL/min BUN/Creatinine Ratio 17.3 (14-18) Glucose 142 H (74-106) mg/dL Calcium 8.1 L (8.5-10.1) mg/dL Total Bilirubin 0.3 (0.2-1.0) mg/dL AST 36 (15-37) U/L ALT 26 (16-63) U/L Alkaline Phosphatase 71 (46-116) U/L Lactate Dehydrogenase 346 H (85-227) U/L C-Reactive Protein 17.8 H* (<1.0) mg/dL Total Protein 7.1 (6.4-8.2) g/dl Albumin 2.3 L (3.4-5.0) g/dl Globulin 4.8 gm/dL Albumin/Globulin Ratio 0.5 L (1-2) Urine Color (Yellow) Urine Appearance (Clear) Urine pH (5.0-8.0) Ur Specific [place] (1.005-1.030) Urine Protein (Negative) Urine Glucose (UA) (Negative) Urine Ketones (Negative) Urine Occult Blood (Negative) Urine Nitrite (Negative) Urine Bilirubin (Negative) Urine Urobilinogen (0.2-1.0) Ur Leukocyte Esterase (Negative) Urine RBC (0-5) /hpf Urine WBC (0-5) /hpf Ur Squamous Epith Cells (0-5) /hpf Urine Bacteria (FEW) /hpf Urine Mucus (FEW) /hpf Result Diagrams: 06/11/20 06:28 06/11/20 06:28 Joaquim Results Last 24 hrs: Microbiology 06/10/20 10:13 Aerobic Blood Culture - Preliminary Blood - Venous NO GROWTH AFTER 1 DAY Anaerobic Blood Culture - Preliminary NO GROWTH AFTER 1 DAY 06/10/20 10:20 Aerobic Blood Culture - Preliminary Blood - Venous - Lab Draw NO GROWTH AFTER 1 DAY Anaerobic Blood Culture - Preliminary NO GROWTH AFTER 1 DAY Sepsis Event Note - Evaluation Sepsis Screening Result: No Definite Risk - Focused Exam Vital Signs: Vital Signs Temp Pulse Resp BP Pulse Ox Pulse Ox 06/11/20 09:27 90 L 06/11/20 07:49 98.2 F 93 18 124/72 88 L 06/11/20 06:21 95 06/11/20 03:43 98.1 F 77 16 154/77 H 95 06/11/20 00:24 98.2 F 69 16 128/83 92 L - Problem List & Annotations (1) Acute respiratory failure SNOMED Code(s): 76786351 Code(s): J96.00 - ACUTE RESPIRATORY FAILURE, UNSP W HYPOXIA OR HYPERCAPNIA Status: Acute Priority: High Current Visit: Yes Qualifiers: Respiratory failure complication: hypoxia Qualified Code(s): J96.01 - Acute respiratory failure with hypoxia (2) COVID-19 determined by clinical diagnostic criteria SNOMED Code(s): 936805428, 935587460 Code(s): U07.1 - COVID-19 Status: Acute Priority: High Current Visit: Yes (3) Pneumonia due to COVID-19 virus SNOMED Code(s): 392133848351100139 Code(s): U07.1 - COVID-19; J12.82 - PNEUMONIA DUE TO CORONAVIRUS DISEASE 2019 Status: Acute Priority: High Current Visit: Yes - Problem List Review Problem List Initiated/Reviewed/Updated: Yes - My Orders Last 24 Hours: My Active Orders 06/11/20 07:40 Telemetry Monitoring [Cardiac Monitoring] [RC] . DIRECTED 06/11/20 10:59 CTA Chest W WO Contrast [Ang Chest] [CT] Routine - Assessment Assessment:: 06/11/20 * Patient is outside the window for safe use of remdesivir as well his he is also had transfusion of immunomodulators * Allergic to azithromycin * Rocephin 2gm IV q 24 hours day 3/ to treat Covid pneumonia * ASA 81mg daily * Dexamethasone 6mg po bid * IV fluids at 50 mL/h * IS and acapella * RT to titrate O2 * Lovenox for DVT prophylaxis * O2 saturations decreased into the 80's on 1 liter. Pt O2 increased to 3l/nc LABS: WBC 8.97->10.20 HGB 11.2->11.8 HCT 33.8->36.4 PLT 351->441 Neut% 86.3->85.7 Ddimer 1.07->2.27 K+ 3.2->3.8 Anion Gap 14.2->16.8 BUN 22->19 Cre 1.1->1.1 GFR >60 Gluc 115->142 Ca 8.2->8.1 LDH 347->346 Trop <0.017 CRP 23.3->17.8 ProBNP [address] of the chest: 1. No findings of pulmonary embolism 2. Diffuse parenchymal changes seen within both lungs compatible with so-called COVID-19 pneumonia. 3. No other acute abnormality is appreciated. - Plan Plan:: The patient is an otherwise healthy 59-year-old gentleman who has been admitted due to acute respiratory failure and pneumonia associated with COVID-19. Patient is outside the window for safe use of remdesivir as well his he is also had transfusion of immunomodulators. The patient says that the medication helped briefly but then he got considerably worse. The patient will be started on Rocephin as he is allergic to azithromycin. This will be a 2 g daily. The patient will also be started on aspirin 81 mg daily this has been shown to reduce mortality. The patient also be kept on his home medications. The patient will also be started on dexamethasone 6 mg p.o. twice daily. Regular diet as tolerated. IV fluids at 50 mL/h. I have also ordered repeat laboratory studies for the morning. Respiratory therapy to evaluate and keep his saturations between 90 and 92%. Patient should also have Acapella and incentive spirometer. The patient should be appropriate for discharge in 2 to 3 days. 06/11/20 Acute respiratory failure; COVID-19 determined by clinical diagnostic criteria; Pneumonia due to COVID-19 virus * O2 titrate to keep sats >92% * RT to continue with IS and acapella * CTA today as patient's ddimer has elevated and is requiring increase in O2 * Increase lovenox to BID as the patient's ddimer has increased * continue Rocephin IV * pt is out of the window for Remdesivir and has had immunomodulators * repeat labs in the AM * encourage prone positioning * encourage ambulation in the room when awake * continue dexamethasone * Albuterol nebs prn * monitor blood sugars * telemetry and continuous pulse oximetry PCP: Liberty Palmer Code Status: Full code DVT prophylaxis: Lovenox and ASA Disposition: Patient admitted to the medical floor on telemetry for management of COVID-19 symptoms. Anticipated LOS 4-5 days. <Giovanny Jackson - Last Filed: 06/11/20 14:12> - Patient Data Vitals - Most Recent: Last Vital Signs Temp 36.8 C 06/11/20 12:00 Pulse 71 06/11/20 12:00 Resp 18 06/11/20 12:00 BP 143/58 H 06/11/20 12:00 Pulse Ox 88 L 06/11/20 12:00 I&O - Last 24 Hours: Intake & Output 06/10/20 06/11/20 06/11/20 22:59 06:59 14:59 Intake Total 1349 1470 Output Total 250 Balance 1099 1470 Lab Results Last 24 Hours: Laboratory Results - last 24 hr 06/10/20 06/11/20 06/11/20 Range/Units 17:32 06:28 06:28 WBC 10.20 H (4.23-9.07) K/mm3 RBC 4.20 L (4.63-6.08) M/mm3 Hgb 11.8 L (13.7-17.5) gm/dl Hct 36.4 L (40.1-51.0) % MCV 86.7 (79.0-92.2) fl MCH 28.1 (25.7-32.2) pg MCHC 32.4 (32.2-35.5) g/dl RDW Std Deviation 45.9 H (35.1-43.9) fL Plt Count 441 H D (163-337) K/mm3 MPV 9.7 (9.4-12.3) fl Neut % (Auto) 85.7 H (34.0-67.9) % Lymph % (Auto) 7.3 L (21.8-53.1) % [place] % (Auto) 6.6 (5.3-12.2) % Eos % (Auto) 0 L (0.8-7.0) Baso % (Auto) 0.1 (0.1-1.2) % Neut # (Auto) 8.75 H (1.78-5.38) K/mm3 Lymph # (Auto) 0.74 L (1.32-3.57) K/mm3 [place] # (Auto) 0.67 (0.30-0.82) K/mm3 Eos # (Auto) 0.00 L (0.04-0.54) K/mm3 Baso # (Auto) 0.01 (0.01-0.08) K/mm3 Manual Slide Review Abnormal smear D-Dimer, Quantitative (0.19-0.50) mg/L Sodium 145 (136-145) mEq/L Potassium 3.8 (3.5-5.1) mEq/L Chloride 108 H (98-107) mEq/L Carbon Dioxide 24 (21-32) mEq/L Anion Gap 16.8 H (5-15) BUN 19 H (7-18) mg/dL Creatinine 1.1 (0.7-1.3) mg/dL Est Cr Clr Drug Dosing 78.91 mL/min Estimated GFR (MDRD) > 60 (>60) mL/min BUN/Creatinine Ratio 17.3 (14-18) Glucose 142 H (74-106) mg/dL Calcium 8.1 L (8.5-10.1) mg/dL Total Bilirubin 0.3 (0.2-1.0) mg/dL AST 36 (15-37) U/L ALT 26 (16-63) U/L Alkaline Phosphatase 71 (46-116) U/L Lactate Dehydrogenase 346 H (85-227) U/L C-Reactive Protein 17.8 H* (<1.0) mg/dL Total Protein 7.1 (6.4-8.2) g/dl Albumin 2.3 L (3.4-5.0) g/dl Globulin 4.8 gm/dL Albumin/Globulin Ratio 0.5 L (1-2) Urine Color Dark yellow (Yellow) Urine Appearance Clear (Clear) Urine pH 6.5 (5.0-8.0) Ur Specific [place] > or = 1.030 (1.005-1.030) Urine Protein 3+ H (Negative) Urine Glucose (UA) Negative (Negative) Urine Ketones Trace H (Negative) Urine Occult Blood Negative (Negative) Urine Nitrite Negative (Negative) Urine Bilirubin 1+ H (Negative) Urine Urobilinogen 2.0 H (0.2-1.0) Ur Leukocyte Esterase Negative (Negative) Urine RBC 0-5 (0-5) /hpf Urine WBC 0-5 (0-5) /hpf Ur Squamous Epith Cells 0-5 (0-5) /hpf Urine Bacteria Moderate H (FEW) /hpf Urine Mucus Moderate H (FEW) /hpf 06/11/20 Range/Units 06:28 WBC (4.23-9.07) K/mm3 RBC (4.63-6.08) M/mm3 Hgb (13.7-17.5) gm/dl Hct (40.1-51.0) % MCV (79.0-92.2) fl MCH (25.7-32.2) pg MCHC (32.2-35.5) g/dl RDW Std Deviation (35.1-43.9) fL Plt Count (163-337) K/mm3 MPV (9.4-12.3) fl Neut % (Auto) (34.0-67.9) % Lymph % (Auto) (21.8-53.1) % [place] % (Auto) (5.3-12.2) % Eos % (Auto) (0.8-7.0) Baso % (Auto) (0.1-1.2) % Neut # (Auto) (1.78-5.38) K/mm3 Lymph # (Auto) (1.32-3.57) K/mm3 [place] # (Auto) (0.30-0.82) K/mm3 Eos # (Auto) (0.04-0.54) K/mm3 Baso # (Auto) (0.01-0.08) K/mm3 Manual Slide Review D-Dimer, Quantitative 2.27 H (0.19-0.50) mg/L Sodium (136-145) mEq/L Potassium (3.5-5.1) mEq/L Chloride (98-107) mEq/L Carbon Dioxide (21-32) mEq/L Anion Gap (5-15) BUN (7-18) mg/dL Creatinine (0.7-1.3) mg/dL Est Cr Clr Drug Dosing mL/min Estimated GFR (MDRD) (>60) mL/min BUN/Creatinine Ratio (14-18) Glucose (74-106) mg/dL Calcium (8.5-10.1) mg/dL Total Bilirubin (0.2-1.0) mg/dL AST (15-37) U/L ALT (16-63) U/L Alkaline Phosphatase (46-116) U/L Lactate Dehydrogenase (85-227) U/L C-Reactive Protein (<1.0) mg/dL Total Protein (6.4-8.2) g/dl Albumin (3.4-5.0) g/dl Globulin gm/dL Albumin/Globulin Ratio (1-2) Urine Color (Yellow) Urine Appearance (Clear) Urine pH (5.0-8.0) Ur Specific [place] (1.005-1.030) Urine Protein (Negative) Urine Glucose (UA) (Negative) Urine Ketones (Negative) Urine Occult Blood (Negative) Urine Nitrite (Negative) Urine Bilirubin (Negative) Urine Urobilinogen (0.2-1.0) Ur Leukocyte Esterase (Negative) Urine RBC (0-5) /hpf Urine WBC (0-5) /hpf Ur Squamous Epith Cells (0-5) /hpf Urine Bacteria (FEW) /hpf Urine Mucus (FEW) /hpf Joaquim Results Last 24 Hours: Microbiology 06/10/20 10:13 Aerobic Blood Culture - Preliminary Blood - Venous NO GROWTH AFTER 1 DAY Anaerobic Blood Culture - Preliminary NO GROWTH AFTER 1 DAY 06/10/20 10:20 Aerobic Blood Culture - Preliminary Blood - Venous - Lab Draw NO GROWTH AFTER 1 DAY Anaerobic Blood Culture - Preliminary NO GROWTH AFTER 1 DAY Med Orders - Current: Current Medications Acetaminophen (Acetaminophen 325 Mg Tab) 650 mg PO Q4H PRN PRN Reason: Pain (Mild 1-3)/fever Last Admin: 06/11/20 12:41 Dose: 650 mg Documented by: Albuterol/Ipratropium (Albuterol/Ipratropium 3.0-0.5 Mg/3 Ml Neb Soln) 3 ml NEB Q4H PRN PRN Reason: Shortness Of Breath/wheezing Aspirin (Aspirin 81 Mg Tab.Ec) 81 mg PO DAILY [facility] Last Admin: 06/11/20 08:39 Dose: 81 mg Documented by: Atorvastatin Calcium (Atorvastatin 20 Mg Tab) 20 mg PO DAILY [facility] Last Admin: 06/11/20 12:40 Dose: 20 mg Documented by: Citalopram Hydrobromide (Citalopram 20 Mg Tab) 40 mg PO DAILY [facility] Last Admin: 06/11/20 08:40 Dose: 40 mg Documented by: Dexamethasone (Dexamethasone 4 Mg Tab) 6 mg PO BID [facility] Last Admin: 06/11/20 09:38 Dose: 6 mg Documented by: Docusate Sodium (Docusate Sodium 100 Mg Cap) 100 mg PO BID PRN PRN Reason: Constipation Enoxaparin Sodium (Enoxaparin 40 Mg/0.4 Ml Syringe) 40 mg SUBCUT DAILY [facility] Last Admin: 06/11/20 08:40 Dose: 40 mg Documented by: Fluticasone Propionate (Fluticasone Propionate Nasal [place] 16 Gm Bottle) 0 gm NASBOTH DAILY [facility] Last Admin: 06/11/20 08:40 Dose: 1 spray Documented by: Sodium Chloride (Normal Saline) 1,000 mls @ 50 mls/hr IV ASDIRECTED [facility] Last Admin: 06/11/20 00:29 Dose: 50 mls/hr Documented by: Ceftriaxone Sodium 2 gm/ (Sodium Chloride) 100 mls @ 200 mls/hr IV Q24H [facility] Last Admin: 06/11/20 12:41 Dose: 200 mls/hr Documented by: Sodium Chloride (Normal Saline) 100 mls @ 60 mls/hr IV ASDIRECTED [facility] Stop: 06/11/20 15:00 Last Admin: 06/11/20 11:17 Dose: 60 mls/hr Documented by: Ondansetron HCl (Ondansetron 4 Mg Tab.Dis) 4 mg PO Q4H PRN PRN Reason: nausea, able to take PO Oxycodone HCl (Oxycodone 5 Mg Tab) 5 mg PO Q4H PRN PRN Reason: Pain (moderate 4-6) Sodium Chloride (Sodium Chloride 0.9% 10 Ml Syringe) 10 ml FLUSH ASDIRECTED PRN PRN Reason: Keep Vein Open Last Admin: 06/11/20 11:17 Dose: 10 ml Documented by: Tamsulosin HCl (Tamsulosin 0.4 Mg Cap.Er) 0.8 mg PO DAILY [facility] Last Admin: 06/11/20 08:39 Dose: 0.8 mg Documented by: Temazepam (Temazepam 15 Mg Cap) 15 mg PO BEDTIME PRN PRN Reason: Sleep Discontinued Medications Dexamethasone (Dexamethasone 10 Mg/Ml Sdv) 6 mg IVPUSH ONETIME ONE Stop: 06/10/20 10:26 Last Admin: 06/10/20 10:52 Dose: 6 mg Documented by: Dextrose/Sodium Chloride (Dextrose 5%-Normal Saline) 1,000 mls @ 100 mls/hr IV ASDIRECTED [facility] Last Admin: 06/10/20 10:19 Dose: 100 mls/hr Documented by: Potassium Chloride 10 meq/ (Premix) 100 mls @ 100 mls/hr IV Q1H [facility] Stop: 06/10/20 14:29 Last Admin: 06/10/20 17:27 Dose: 100 mls/hr Documented by: Ibuprofen (Ibuprofen 600 Mg Tab) 600 mg PO ONETIME ONE Stop: 06/10/20 10:35 Last Admin: 06/10/20 10:51 Dose: 600 mg Documented by: Iopamidol (Iopamidol 755 Mg/Ml 100 Ml Bottle) 100 ml IVPUSH ONETIME ONE Stop: 06/11/20 11:11 Last Admin: 06/11/20 11:17 Dose: 100 ml Documented by: Morphine Sulfate (Morphine 2 Mg/Ml Syringe) 2 mg IVPUSH Q2H PRN PRN Reason: Pain (severe 7-10) Stop: 06/11/20 12:02 Sodium Chloride (Sodium Chloride 0.9% 10 Ml Syringe) 10 ml FLUSH ONETIME ONE Stop: 06/11/20 12:01 Last Admin: 06/11/20 12:40 Dose: 10 ml Documented by: - Patient Data Lab Results Last 24 hrs: Laboratory Results - last 24 hr 06/10/20 06/11/20 06/11/20 Range/Units 17:32 06:28 06:28 WBC 10.20 H (4.23-9.07) K/mm3 RBC 4.20 L (4.63-6.08) M/mm3 Hgb 11.8 L (13.7-17.5) gm/dl Hct 36.4 L (40.1-51.0) % MCV 86.7 (79.0-92.2) fl MCH 28.1 (25.7-32.2) pg MCHC 32.4 (32.2-35.5) g/dl RDW Std Deviation 45.9 H (35.1-43.9) fL Plt Count 441 H D (163-337) K/mm3 MPV 9.7 (9.4-12.3) fl Neut % (Auto) 85.7 H (34.0-67.9) % Lymph % (Auto) 7.3 L (21.8-53.1) % [place] % (Auto) 6.6 (5.3-12.2) % Eos % (Auto) 0 L (0.8-7.0) Baso % (Auto) 0.1 (0.1-1.2) % Neut # (Auto) 8.75 H (1.78-5.38) K/mm3 Lymph # (Auto) 0.74 L (1.32-3.57) K/mm3 [place] # (Auto) 0.67 (0.30-0.82) K/mm3 Eos # (Auto) 0.00 L (0.04-0.54) K/mm3 Baso # (Auto) 0.01 (0.01-0.08) K/mm3 Manual Slide Review Abnormal smear D-Dimer, Quantitative (0.19-0.50) mg/L Sodium 145 (136-145) mEq/L Potassium 3.8 (3.5-5.1) mEq/L Chloride 108 H (98-107) mEq/L Carbon Dioxide 24 (21-32) mEq/L Anion Gap 16.8 H (5-15) BUN 19 H (7-18) mg/dL Creatinine 1.1 (0.7-1.3) mg/dL Est Cr Clr Drug Dosing 78.91 mL/min Estimated GFR (MDRD) > 60 (>60) mL/min BUN/Creatinine Ratio 17.3 (14-18) Glucose 142 H (74-106) mg/dL Calcium 8.1 L (8.5-10.1) mg/dL Total Bilirubin 0.3 (0.2-1.0) mg/dL AST 36 (15-37) U/L ALT 26 (16-63) U/L Alkaline Phosphatase 71 (46-116) U/L Lactate Dehydrogenase 346 H (85-227) U/L C-Reactive Protein 17.8 H* (<1.0) mg/dL Total Protein 7.1 (6.4-8.2) g/dl Albumin 2.3 L (3.4-5.0) g/dl Globulin 4.8 gm/dL Albumin/Globulin Ratio 0.5 L (1-2) Urine Color Dark yellow (Yellow) Urine Appearance Clear (Clear) Urine pH 6.5 (5.0-8.0) Ur Specific [place] > or = 1.030 (1.005-1.030) Urine Protein 3+ H (Negative) Urine Glucose (UA) Negative (Negative) Urine Ketones Trace H (Negative) Urine Occult Blood Negative (Negative) Urine Nitrite Negative (Negative) Urine Bilirubin 1+ H (Negative) Urine Urobilinogen 2.0 H (0.2-1.0) Ur Leukocyte Esterase Negative (Negative) Urine RBC 0-5 (0-5) /hpf Urine WBC 0-5 (0-5) /hpf Ur Squamous Epith Cells 0-5 (0-5) /hpf Urine Bacteria Moderate H (FEW) /hpf Urine Mucus Moderate H (FEW) /hpf 06/11/20 Range/Units 06:28 WBC (4.23-9.07) K/mm3 RBC (4.63-6.08) M/mm3 Hgb (13.7-17.5) gm/dl Hct (40.1-51.0) % MCV (79.0-92.2) fl MCH (25.7-32.2) pg MCHC (32.2-35.5) g/dl RDW Std Deviation (35.1-43.9) fL Plt Count (163-337) K/mm3 MPV (9.4-12.3) fl Neut % (Auto) (34.0-67.9) % Lymph % (Auto) (21.8-53.1) % [place] % (Auto) (5.3-12.2) % Eos % (Auto) (0.8-7.0) Baso % (Auto) (0.1-1.2) % Neut # (Auto) (1.78-5.38) K/mm3 Lymph # (Auto) (1.32-3.57) K/mm3 [place] # (Auto) (0.30-0.82) K/mm3 Eos # (Auto) (0.04-0.54) K/mm3 Baso # (Auto) (0.01-0.08) K/mm3 Manual Slide Review D-Dimer, Quantitative 2.27 H (0.19-0.50) mg/L Sodium (136-145) mEq/L Potassium (3.5-5.1) mEq/L Chloride (98-107) mEq/L Carbon Dioxide (21-32) mEq/L Anion Gap (5-15) BUN (7-18) mg/dL Creatinine (0.7-1.3) mg/dL Est Cr Clr Drug Dosing mL/min Estimated GFR (MDRD) (>60) mL/min BUN/Creatinine Ratio (14-18) Glucose (74-106) mg/dL Calcium (8.5-10.1) mg/dL Total Bilirubin (0.2-1.0) mg/dL AST (15-37) U/L ALT (16-63) U/L Alkaline Phosphatase (46-116) U/L Lactate Dehydrogenase (85-227) U/L C-Reactive Protein (<1.0) mg/dL Total Protein (6.4-8.2) g/dl Albumin (3.4-5.0) g/dl Globulin gm/dL Albumin/Globulin Ratio (1-2) Urine Color (Yellow) Urine Appearance (Clear) Urine pH (5.0-8.0) Ur Specific [place] (1.005-1.030) Urine Protein (Negative) Urine Glucose (UA) (Negative) Urine Ketones (Negative) Urine Occult Blood (Negative) Urine Nitrite (Negative) Urine Bilirubin (Negative) Urine Urobilinogen (0.2-1.0) Ur Leukocyte Esterase (Negative) Urine RBC (0-5) /hpf Urine WBC (0-5) /hpf Ur Squamous Epith Cells (0-5) /hpf Urine Bacteria (FEW) /hpf Urine Mucus (FEW) /hpf Result Diagrams: 06/11/20 06:28 06/11/20 06:28 Joaquim Results Last 24 hrs: Microbiology 06/10/20 10:13 Aerobic Blood Culture - Preliminary Blood - Venous NO GROWTH AFTER 1 DAY Anaerobic Blood Culture - Preliminary NO GROWTH AFTER 1 DAY 06/10/20 10:20 Aerobic Blood Culture - Preliminary Blood - Venous - Lab Draw NO GROWTH AFTER 1 DAY Anaerobic Blood Culture - Preliminary NO GROWTH AFTER 1 DAY Sepsis Event Note - Focused Exam Vital Signs: Vital Signs Temp Pulse Resp BP Pulse Ox Pulse Ox 06/11/20 12:00 36.8 C 71 18 143/58 H 88 L 06/11/20 09:27 90 L 06/11/20 07:49 36.8 C 93 18 124/72 88 L 06/11/20 06:21 95 06/11/20 03:43 36.7 C 77 16 154/77 H 95 - Problem List & Annotations (1) Acute respiratory failure SNOMED Code(s): 17963260 Code(s): J96.00 - ACUTE RESPIRATORY FAILURE, UNSP W HYPOXIA OR HYPERCAPNIA Status: Acute Priority: High Current Visit: Yes Qualifiers: Respiratory failure complication: hypoxia Qualified Code(s): J96.01 - Acute respiratory failure with hypoxia (2) COVID-19 determined by clinical diagnostic criteria SNOMED Code(s): 471977178, 449081639 Code(s): U07.1 - COVID-19 Status: Acute Priority: High Current Visit: Yes (3) Pneumonia due to COVID-19 virus SNOMED Code(s): 149026640358981876 Code(s): U07.1 - COVID-19; J12.82 - PNEUMONIA DUE TO CORONAVIRUS DISEASE 2019 Status: Acute Priority: High Current Visit: Yes - My Orders Last 24 Hours: My Active Orders 06/10/20 Dinner Regular Diet [DIET] 06/11/20 07:41 Pulse Oximetry Continuous Monitoring [OM.PC] Routine 06/11/20 09:00 Aspirin [Halfprin] 81 mg PO DAILY Citalopram [Celexa] 40 mg PO DAILY Enoxaparin [Lovenox] 40 mg SUBCUT DAILY Fluticasone Propionate [Flonase] 0 gm NASBOTH DAILY Tamsulosin [Flomax] 0.8 mg PO DAILY 06/11/20 09:15 dexAMETHasone 6 mg PO BID 06/11/20 11:15 Sodium Chloride 0.9% [Normal Saline] 100 ml IV ASDIRECTED 06/11/20 12:00 atorvaSTATin [Lipitor] 20 mg PO DAILY - Plan Plan:: I have seen and evaluated the patient independently of JAVI Ellsworth, and have reviewed and agree with the orders and plan of care as outlined by her. I have discussed the case with her. Please see orders.
[2020-06-11] MEDS ORDERED: Sodium Chloride 0.9% 10 ML Syringe FLUSH ONE (12:00)
--- NOTE | 2020-06-11 12:06 | CT ---
CT chest Technique: Multiple axial sections through the chest were obtained. Study has been performed as a pulmonary angiogram protocol and intravenous contrast was therefore utilized. Comparison: Prior chest CT study of 05/04/18 and recent chest x-ray of 06/11/19. Findings: Pulmonary arteries are well opacified. No filling defects are seen to indicate pulmonary embolism. Thoracic aorta shows no aneurysm. Several lymph nodes are seen within the mediastinum which are believed to be within normal limits. Cardiac silhouette is normal. Small portion of the visualized upper abdominal structures shows nothing acute. Lung window settings were reviewed. Diffuse parenchymal changes are seen throughout both right and left lungs. Azygos lobe is noted. Bone window settings were reviewed which show no acute osseous finding. Impression: 1. No findings of pulmonary embolism. 2. Diffuse parenchymal change is seen within both lungs compatible with so-called Covid 19 pneumonia. 3. No other acute abnormality is appreciated. Diagnostic code #3
[2020-06-11] MEDS: atorvaSTATin 20 MG Tab PO SCH (12:40)
[2020-06-11] MEDS: cefTRIAXone 2 GM in Sodium Chloride 0.9% 100 ML IV SCH (12:41)
[2020-06-11] MEDS: Acetaminophen 325 MG Tab PO PRN ×2 (12:41→20:57)
[2020-06-12 07:03] LABS: HEMOGLOBIN A1C 6.4 %
[2020-06-12] MEDS: Enoxaparin 40 MG/0.4 ML Syringe SUBCUT SCH (08:58)
[2020-06-12] MEDS: Fluticasone Propionate Nasal Spray 16 GM Bottle NASBOTH SCH (08:58)
[2020-06-12] MEDS: Tamsulosin 0.4 MG Cap.ER PO SCH (09:00)
[2020-06-12] MEDS: atorvaSTATin 20 MG Tab PO SCH (09:00)
[2020-06-12] MEDS: Citalopram 20 MG Tab PO SCH (09:00)
[2020-06-12] MEDS: Dexamethasone 4 MG Tab PO SCH ×2 (09:00→20:29)
[2020-06-12] MEDS: Aspirin 81 MG Tab.EC PO SCH (09:00)
--- NOTE | 2020-06-12 09:42 | PCM.PN ---
- General Info Date of Service: 06/12/20 Admission Dx/Problem (Free Text): Admission Diagnosis/Problem Admission Diagnosis/Problem Viral pneumonia Functional Status: Reports: Pain Controlled, Tolerating Diet, Ambulating, Urinating, New Symptoms (worsening SOB and oxygen saturations ), Incentive Spirometry, Other (Acapella ) - Review of Systems General: Reports: Weakness, Fatigue, Malaise. Denies: Fever, Chills HEENT: Reports: No Symptoms. Denies: Headaches, Sore Throat Pulmonary: Reports: Shortness of Breath, Cough, Sputum. Denies: Pleuritic Chest Pain, Wheezing Cardiovascular: Reports: Dyspnea on Exertion. Denies: Chest Pain, Palpitations, Edema, Lightheadedness Gastrointestinal: Reports: No Symptoms. Denies: Abdominal Pain, Constipation, Diarrhea, Nausea, Vomiting Genitourinary: Reports: No Symptoms. Denies: Pain Musculoskeletal: Reports: No Symptoms Skin: Reports: No Symptoms. Denies: Cyanosis Neurological: Reports: No Symptoms. Denies: Confusion, Pre-Existing Deficit, Difficulty Walking, Gait Disturbance Psychiatric: Reports: No Symptoms - Patient Data Vitals - Most Recent: Last Vital Signs Temp 97.5 F 06/12/20 07:47 Pulse 81 06/12/20 07:47 Resp 16 06/12/20 07:47 BP 123/63 06/12/20 07:47 Pulse Ox 93 L 06/12/20 07:47 Weight - Most Recent: 174 lb 9.6 oz I&O - Last 24 Hours: Intake & Output 06/11/20 06/12/20 06/12/20 22:59 06:59 14:59 Intake Total 2260 900 Balance 2260 900 Lab Results Last 24 Hours: Laboratory Results - last 24 hr 06/12/20 06/12/20 06/12/20 Range/Units 05:06 05:06 05:06 WBC 14.74 H (4.23-9.07) K/mm3 RBC 3.76 L (4.63-6.08) M/mm3 Hgb 10.5 L (13.7-17.5) gm/dl Hct 32.8 L (40.1-51.0) % MCV 87.2 (79.0-92.2) fl MCH 27.9 (25.7-32.2) pg MCHC 32.0 L (32.2-35.5) g/dl RDW Std Deviation 45.7 H (35.1-43.9) fL Plt Count 468 H (163-337) K/mm3 MPV 9.9 (9.4-12.3) fl Neut % (Auto) 91.4 H (34.0-67.9) % Lymph % (Auto) 4.3 L (21.8-53.1) % [place] % (Auto) 3.9 L (5.3-12.2) % Eos % (Auto) 0 L (0.8-7.0) Baso % (Auto) 0.1 (0.1-1.2) % Neut # (Auto) 13.48 H (1.78-5.38) K/mm3 Lymph # (Auto) 0.63 L (1.32-3.57) K/mm3 [place] # (Auto) 0.58 (0.30-0.82) K/mm3 Eos # (Auto) 0.00 L (0.04-0.54) K/mm3 Baso # (Auto) 0.01 (0.01-0.08) K/mm3 Manual Slide Review Abnormal smear D-Dimer, Quantitative 1.78 H (0.19-0.50) mg/L Sodium 146 H (136-145) mEq/L Potassium 4.2 (3.5-5.1) mEq/L Chloride 112 H (98-107) mEq/L Carbon Dioxide 24 (21-32) mEq/L Anion Gap 14.2 (5-15) BUN 20 H (7-18) mg/dL Creatinine 0.9 (0.7-1.3) mg/dL Est Cr Clr Drug Dosing 96.45 mL/min Estimated GFR (MDRD) > 60 (>60) mL/min BUN/Creatinine Ratio 22.2 H (14-18) Glucose 167 H (74-106) mg/dL Hemoglobin A1c ( - 5.6) % Calcium 8.2 L (8.5-10.1) mg/dL Total Bilirubin 0.3 (0.2-1.0) mg/dL AST 31 (15-37) U/L ALT 10 L (16-63) U/L Alkaline Phosphatase 67 (46-116) U/L Lactate Dehydrogenase 335 H (85-227) U/L C-Reactive Protein 7.6 H* (<1.0) mg/dL Total Protein 6.1 L (6.4-8.2) g/dl Albumin 1.9 L (3.4-5.0) g/dl Globulin 4.2 gm/dL Albumin/Globulin Ratio 0.5 L (1-2) 06/12/20 Range/Units 05:06 WBC (4.23-9.07) K/mm3 RBC (4.63-6.08) M/mm3 Hgb (13.7-17.5) gm/dl Hct (40.1-51.0) % MCV (79.0-92.2) fl MCH (25.7-32.2) pg MCHC (32.2-35.5) g/dl RDW Std Deviation (35.1-43.9) fL Plt Count (163-337) K/mm3 MPV (9.4-12.3) fl Neut % (Auto) (34.0-67.9) % Lymph % (Auto) (21.8-53.1) % [place] % (Auto) (5.3-12.2) % Eos % (Auto) (0.8-7.0) Baso % (Auto) (0.1-1.2) % Neut # (Auto) (1.78-5.38) K/mm3 Lymph # (Auto) (1.32-3.57) K/mm3 [place] # (Auto) (0.30-0.82) K/mm3 Eos # (Auto) (0.04-0.54) K/mm3 Baso # (Auto) (0.01-0.08) K/mm3 Manual Slide Review D-Dimer, Quantitative (0.19-0.50) mg/L Sodium (136-145) mEq/L Potassium (3.5-5.1) mEq/L Chloride (98-107) mEq/L Carbon Dioxide (21-32) mEq/L Anion Gap (5-15) BUN (7-18) mg/dL Creatinine (0.7-1.3) mg/dL Est Cr Clr Drug Dosing mL/min Estimated GFR (MDRD) (>60) mL/min BUN/Creatinine Ratio (14-18) Glucose (74-106) mg/dL Hemoglobin A1c 6.4 H ( - 5.6) % Calcium (8.5-10.1) mg/dL Total Bilirubin (0.2-1.0) mg/dL AST (15-37) U/L ALT (16-63) U/L Alkaline Phosphatase (46-116) U/L Lactate Dehydrogenase (85-227) U/L C-Reactive Protein (<1.0) mg/dL Total Protein (6.4-8.2) g/dl Albumin (3.4-5.0) g/dl Globulin gm/dL Albumin/Globulin Ratio (1-2) Joaquim Results Last 24 Hours: Microbiology 06/10/20 10:13 Aerobic Blood Culture - Preliminary Blood - Venous NO GROWTH AFTER 1 DAY Anaerobic Blood Culture - Preliminary NO GROWTH AFTER 1 DAY 06/10/20 10:20 Aerobic Blood Culture - Preliminary Blood - Venous - Lab Draw NO GROWTH AFTER 1 DAY Anaerobic Blood Culture - Preliminary NO GROWTH AFTER 1 DAY Med Orders - Current: Current Medications Acetaminophen (Acetaminophen 325 Mg Tab) 650 mg PO Q4H PRN PRN Reason: Pain (Mild 1-3)/fever Last Admin: 06/11/20 20:57 Dose: 650 mg Documented by: Albuterol/Ipratropium (Albuterol/Ipratropium 3.0-0.5 Mg/3 Ml Neb Soln) 3 ml NEB Q4H PRN PRN Reason: Shortness Of Breath/wheezing Aspirin (Aspirin 81 Mg Tab.Ec) 81 mg PO DAILY [facility] Last Admin: 06/12/20 09:00 Dose: 81 mg Documented by: Atorvastatin Calcium (Atorvastatin 20 Mg Tab) 20 mg PO DAILY [facility] Last Admin: 06/12/20 09:00 Dose: 20 mg Documented by: Citalopram Hydrobromide (Citalopram 20 Mg Tab) 40 mg PO DAILY [facility] Last Admin: 06/12/20 09:00 Dose: 40 mg Documented by: Dexamethasone (Dexamethasone 4 Mg Tab) 6 mg PO BID [facility] Last Admin: 06/12/20 09:00 Dose: 6 mg Documented by: Docusate Sodium (Docusate Sodium 100 Mg Cap) 100 mg PO BID PRN PRN Reason: Constipation Enoxaparin Sodium (Enoxaparin 40 Mg/0.4 Ml Syringe) 40 mg SUBCUT DAILY [facility] Last Admin: 06/12/20 08:58 Dose: 40 mg Documented by: Fluticasone Propionate (Fluticasone Propionate Nasal [place] 16 Gm Bottle) 0 gm NASBOTH DAILY [facility] Last Admin: 06/12/20 08:58 Dose: 1 spray Documented by: Sodium Chloride (Normal Saline) 1,000 mls @ 50 mls/hr IV ASDIRECTED [facility] Last Admin: 06/11/20 20:57 Dose: 50 mls/hr Documented by: Ceftriaxone Sodium 2 gm/ (Sodium Chloride) 100 mls @ 200 mls/hr IV Q24H [facility] Last Admin: 06/11/20 12:41 Dose: 200 mls/hr Documented by: Ondansetron HCl (Ondansetron 4 Mg Tab.Dis) 4 mg PO Q4H PRN PRN Reason: nausea, able to take PO Oxycodone HCl (Oxycodone 5 Mg Tab) 5 mg PO Q4H PRN PRN Reason: Pain (moderate 4-6) Sodium Chloride (Sodium Chloride 0.9% 10 Ml Syringe) 10 ml FLUSH ASDIRECTED PRN PRN Reason: Keep Vein Open Last Admin: 06/11/20 11:17 Dose: 10 ml Documented by: Tamsulosin HCl (Tamsulosin 0.4 Mg Cap.Er) 0.8 mg PO DAILY [facility] Last Admin: 06/12/20 09:00 Dose: 0.8 mg Documented by: Temazepam (Temazepam 15 Mg Cap) 15 mg PO BEDTIME PRN PRN Reason: Sleep Discontinued Medications Dexamethasone (Dexamethasone 10 Mg/Ml Sdv) 6 mg IVPUSH ONETIME ONE Stop: 06/10/20 10:26 Last Admin: 06/10/20 10:52 Dose: 6 mg Documented by: Dextrose/Sodium Chloride (Dextrose 5%-Normal Saline) 1,000 mls @ 100 mls/hr IV ASDIRECTED [facility] Last Admin: 06/10/20 10:19 Dose: 100 mls/hr Documented by: Potassium Chloride 10 meq/ (Premix) 100 mls @ 100 mls/hr IV Q1H [facility] Stop: 06/10/20 14:29 Last Admin: 06/10/20 17:27 Dose: 100 mls/hr Documented by: Sodium Chloride (Normal Saline) 100 mls @ 60 mls/hr IV ASDIRECTED [facility] Stop: 06/11/20 15:00 Last Admin: 04/16/21 11:17 Dose: 60 mls/hr Documented by: Ibuprofen (Ibuprofen 600 Mg Tab) 600 mg PO ONETIME ONE Stop: 06/10/20 10:35 Last Admin: 06/10/20 10:51 Dose: 600 mg Documented by: Iopamidol (Iopamidol 755 Mg/Ml 100 Ml Bottle) 100 ml IVPUSH ONETIME ONE Stop: 06/11/20 11:11 Last Admin: 06/11/20 11:17 Dose: 100 ml Documented by: Morphine Sulfate (Morphine 2 Mg/Ml Syringe) 2 mg IVPUSH Q2H PRN PRN Reason: Pain (severe 7-10) Stop: 06/11/20 12:02 Sodium Chloride (Sodium Chloride 0.9% 10 Ml Syringe) 10 ml FLUSH ONETIME ONE Stop: 06/11/20 12:01 Last Admin: 06/11/20 12:40 Dose: 10 ml Documented by: - Exam Quality Assessment: Supplemental Oxygen (6L), DVT Prophylaxis General: Alert, Oriented, Cooperative, Mild Distress (looks uncomfortable ) HEENT: Pupils Equal, Pupils Reactive, Mucous Membr. Moist/[place] Neck: Supple, Trachea Midline Lungs: Decreased Breath Sounds, Crackles. No: Normal Respiratory Effort Cardiovascular: Regular Rate, Regular Rhythm GI/Abdominal Exam: Normal Bowel Sounds, Soft, Non-Tender, No Distention (Male) Exam: Deferred Back Exam: Normal Inspection, Full Range of Motion Extremities: Normal Inspection, Normal Range of Motion, Non-Tender, No Pedal Edema, Normal Capillary Refill Peripheral Pulses: 3+: Radial (L), Radial (R), Dorsalis Pedis (L), Dorsalis Pedis (R) Skin: Warm, Dry, Intact Neurological: No New Focal Deficit Psy/Mental Status: Alert, Normal Affect, Normal Mood - Patient Data Lab Results Last 24 hrs: Laboratory Results - last 24 hr 06/12/20 06/12/20 06/12/20 Range/Units 05:06 05:06 05:06 WBC 14.74 H (4.23-9.07) K/mm3 RBC 3.76 L (4.63-6.08) M/mm3 Hgb 10.5 L (13.7-17.5) gm/dl Hct 32.8 L (40.1-51.0) % MCV 87.2 (79.0-92.2) fl MCH 27.9 (25.7-32.2) pg MCHC 32.0 L (32.2-35.5) g/dl RDW Std Deviation 45.7 H (35.1-43.9) fL Plt Count 468 H (163-337) K/mm3 MPV 9.9 (9.4-12.3) fl Neut % (Auto) 91.4 H (34.0-67.9) % Lymph % (Auto) 4.3 L (21.8-53.1) % [place] % (Auto) 3.9 L (5.3-12.2) % Eos % (Auto) 0 L (0.8-7.0) Baso % (Auto) 0.1 (0.1-1.2) % Neut # (Auto) 13.48 H (1.78-5.38) K/mm3 Lymph # (Auto) 0.63 L (1.32-3.57) K/mm3 [place] # (Auto) 0.58 (0.30-0.82) K/mm3 Eos # (Auto) 0.00 L (0.04-0.54) K/mm3 Baso # (Auto) 0.01 (0.01-0.08) K/mm3 Manual Slide Review Abnormal smear D-Dimer, Quantitative 1.78 H (0.19-0.50) mg/L Sodium 146 H (136-145) mEq/L Potassium 4.2 (3.5-5.1) mEq/L Chloride 112 H (98-107) mEq/L Carbon Dioxide 24 (21-32) mEq/L Anion Gap 14.2 (5-15) BUN 20 H (7-18) mg/dL Creatinine 0.9 (0.7-1.3) mg/dL Est Cr Clr Drug Dosing 96.45 mL/min Estimated GFR (MDRD) > 60 (>60) mL/min BUN/Creatinine Ratio 22.2 H (14-18) Glucose 167 H (74-106) mg/dL Hemoglobin A1c ( - 5.6) % Calcium 8.2 L (8.5-10.1) mg/dL Total Bilirubin 0.3 (0.2-1.0) mg/dL AST 31 (15-37) U/L ALT 10 L (16-63) U/L Alkaline Phosphatase 67 (46-116) U/L Lactate Dehydrogenase 335 H (85-227) U/L C-Reactive Protein 7.6 H* (<1.0) mg/dL Total Protein 6.1 L (6.4-8.2) g/dl Albumin 1.9 L (3.4-5.0) g/dl Globulin 4.2 gm/dL Albumin/Globulin Ratio 0.5 L (1-2) 06/12/20 Range/Units 05:06 WBC (4.23-9.07) K/mm3 RBC (4.63-6.08) M/mm3 Hgb (13.7-17.5) gm/dl Hct (40.1-51.0) % MCV (79.0-92.2) fl MCH (25.7-32.2) pg MCHC (32.2-35.5) g/dl RDW Std Deviation (35.1-43.9) fL Plt Count (163-337) K/mm3 MPV (9.4-12.3) fl Neut % (Auto) (34.0-67.9) % Lymph % (Auto) (21.8-53.1) % [place] % (Auto) (5.3-12.2) % Eos % (Auto) (0.8-7.0) Baso % (Auto) (0.1-1.2) % Neut # (Auto) (1.78-5.38) K/mm3 Lymph # (Auto) (1.32-3.57) K/mm3 [place] # (Auto) (0.30-0.82) K/mm3 Eos # (Auto) (0.04-0.54) K/mm3 Baso # (Auto) (0.01-0.08) K/mm3 Manual Slide Review D-Dimer, Quantitative (0.19-0.50) mg/L Sodium (136-145) mEq/L Potassium (3.5-5.1) mEq/L Chloride (98-107) mEq/L Carbon Dioxide (21-32) mEq/L Anion Gap (5-15) BUN (7-18) mg/dL Creatinine (0.7-1.3) mg/dL Est Cr Clr Drug Dosing mL/min Estimated GFR (MDRD) (>60) mL/min BUN/Creatinine Ratio (14-18) Glucose (74-106) mg/dL Hemoglobin A1c 6.4 H ( - 5.6) % Calcium (8.5-10.1) mg/dL Total Bilirubin (0.2-1.0) mg/dL AST (15-37) U/L ALT (16-63) U/L Alkaline Phosphatase (46-116) U/L Lactate Dehydrogenase (85-227) U/L C-Reactive Protein (<1.0) mg/dL Total Protein (6.4-8.2) g/dl Albumin (3.4-5.0) g/dl Globulin gm/dL Albumin/Globulin Ratio (1-2) Result Diagrams: 06/12/20 05:06 06/12/20 05:06 Joaquim Results Last 24 hrs: Microbiology 06/10/20 10:13 Aerobic Blood Culture - Preliminary Blood - Venous NO GROWTH AFTER 1 DAY Anaerobic Blood Culture - Preliminary NO GROWTH AFTER 1 DAY 06/10/20 10:20 Aerobic Blood Culture - Preliminary Blood - Venous - Lab Draw NO GROWTH AFTER 1 DAY Anaerobic Blood Culture - Preliminary NO GROWTH AFTER 1 DAY Sepsis Event Note - Evaluation Sepsis Screening Result: No Definite Risk - Focused Exam Vital Signs: Vital Signs Temp Pulse Resp BP Pulse Ox Pulse Ox 06/12/20 07:47 97.5 F 81 16 123/63 93 L 06/12/20 06:37 88 L 06/12/20 05:27 98.1 F 70 18 143/67 H 98 06/12/20 01:33 98.1 F 53 L 16 140/72 96 - Problem List & Annotations (1) Acute respiratory failure SNOMED Code(s): 16729944 Code(s): J96.00 - ACUTE RESPIRATORY FAILURE, UNSP W HYPOXIA OR HYPERCAPNIA Status: Acute Priority: High Current Visit: Yes Qualifiers: Respiratory failure complication: hypoxia Qualified Code(s): J96.01 - Acute respiratory failure with hypoxia (2) COVID-19 determined by clinical diagnostic criteria SNOMED Code(s): 981614766, 750104406 Code(s): U07.1 - COVID-19 Status: Acute Priority: High Current Visit: Yes (3) Hypoxia SNOMED Code(s): 052961358 Code(s): R09.02 - HYPOXEMIA Status: Acute Priority: High Current Visit: Yes - Problem List Review Problem List Initiated/Reviewed/Updated: Yes - Assessment Assessment:: 06/11/20 * Patient is outside the window for safe use of remdesivir as well his he is also had transfusion of immunomodulators * Allergic to azithromycin * Rocephin 2gm IV q 24 hours day 3/ to treat Covid pneumonia * ASA 81mg daily * Dexamethasone 6mg po bid * IV fluids at 50 mL/h * IS and acapella * RT to titrate O2 * Lovenox for DVT prophylaxis * O2 saturations decreased into the 80's on 1 liter. Pt O2 increased to 3l/nc LABS: WBC 8.97->10.20 HGB 11.2->11.8 HCT 33.8->36.4 PLT 351->441 Neut% 86.3->85.7 Ddimer 1.07->2.27 K+ 3.2->3.8 Anion Gap 14.2->16.8 BUN 22->19 Cre 1.1->1.1 GFR >60 Gluc 115->142 Ca 8.2->8.1 LDH 347->346 Trop <0.017 CRP 23.3->17.8 ProBNP [address] of the chest: 1. No findings of pulmonary embolism 2. Diffuse parenchymal changes seen within both lungs compatible with so-called COVID-19 pneumonia. 3. No other acute abnormality is appreciated. 06/12/2020: * Patient has worsening respiratory status and is up to 6 L currently * Patient has not been proning or using his IS/acapella very much. We discussed this. * Increase aspirin to 325 daily. * Discontinue IV fluids. * Start 5000 unit vitamin D on 220 mg zinc supplementation. * Start Pepcid twice daily 20 mg for GI prophylaxis due to significant steroid * Continue current treatment plan. * Recheck labs tomorrow and D-dimer every 48. * Labs today: * WBC 14.74. * Hemoglobin of 10.5. * Neutrophils elevated 91.4%. * D-dimer 1.78. * Sodium 146. * Potassium 4.6. * Anion gap 14.2. * GFR greater than 60. * Glucose 167. * Hemoglobin A1c 6.4. * Bilirubin 0.3. * AST 31, ALT 10, alkaline phosphatase 67. * LDH 335. * CRP 7.6. * Albumin 1.9. * Blood cultures remain negative * Should patient continue to have decreasing saturations we will change to high flow O2. - Plan Plan:: Acute respiratory failure COVID-19 determined by clinical diagnostic criteria Pneumonia due to COVID-19 virus * O2 titrate to keep sats >92% * RT to continue with IS and acapella * Continue Rocephin IV 2gm - day 3/5 * Pt is out of the window for Remdesivir and has had monoclonal antibodies * Repeat labs in the AM, D-Dimer Q48h * Encourage prone positioning * Encourage ambulation in the room when awake * Continue dexamethasone * Albuterol inhaler prn * Monitor blood sugars * Telemetry and continuous pulse oximetry * Start zinc and vitamin D supplementation * Melatonin at bedtime * Increase ASA to 325mg daily * Highflow O2 if unable to keep goal saturations on NC * O2 goal saturations of 88-96% * Airborne/contact precautions PCP: Liberty Palmer PA-C Code Status: Full code DVT prophylaxis: Lovenox and ASA GI prophylaxis: BID Pepcid Disposition: Patient admitted to the medical floor on telemetry for management of COVID-19 symptoms. Anticipated LOS 4-5 days.
[2020-06-12] MEDS: cefTRIAXone 2 GM in Sodium Chloride 0.9% 100 ML IV SCH (12:30)
[2020-06-12] MEDS: Cholecalciferol (Vitamin D3) 5,000 UNIT Cap PO SCH (15:37)
[2020-06-12] MEDS: Zinc Sulfate 220 MG Cap PO SCH (15:37)
[2020-06-12] MEDS: Famotidine 20 MG Tab PO SCH (20:28)
[2020-06-12] MEDS: Melatonin 3 MG Tab PO SCH (20:28)
[2020-06-13] MEDS ORDERED: guaiFENesin/Dextromethorphan 100-10 MG/5 ML Soln 5 ML Cup PO PRN (04:35)
[2020-06-13] MEDS: Enoxaparin 40 MG/0.4 ML Syringe SUBCUT SCH (09:10)
[2020-06-13] MEDS: Fluticasone Propionate Nasal Spray 16 GM Bottle NASBOTH SCH (09:10)
[2020-06-13] MEDS: Tamsulosin 0.4 MG Cap.ER PO SCH (09:11)
[2020-06-13] MEDS: Famotidine 20 MG Tab PO SCH ×2 (09:11→20:10)
[2020-06-13] MEDS: Citalopram 20 MG Tab PO SCH (09:11)
[2020-06-13] MEDS: Dexamethasone 4 MG Tab PO SCH ×2 (09:11→20:10)
[2020-06-13] MEDS: Aspirin 325 MG Tab.EC PO SCH (09:11)
[2020-06-13] MEDS: Cholecalciferol (Vitamin D3) 5,000 UNIT Cap PO SCH (09:11)
[2020-06-13] MEDS: atorvaSTATin 20 MG Tab PO SCH (09:12)
[2020-06-13] MEDS: Zinc Sulfate 220 MG Cap PO SCH (09:12)
[2020-06-13] MEDS: cefTRIAXone 2 GM in Sodium Chloride 0.9% 100 ML IV SCH (12:31)
--- NOTE | 2020-06-13 12:31 | PCM.PN ---
- General Info Date of Service: 06/13/20 Admission Dx/Problem (Free Text): Admission Diagnosis/Problem Admission Diagnosis/Problem Viral pneumonia Functional Status: Reports: Pain Controlled, Tolerating Diet, Ambulating, Urinating, New Symptoms (Worsening respiratory status), Incentive Spirometry, Other (Acapella) - Review of Systems General: Reports: Weakness, Fatigue, Malaise. Denies: Fever, Chills HEENT: Reports: No Symptoms. Denies: Headaches, Sore Throat Pulmonary: Reports: Shortness of Breath, Cough. Denies: Pleuritic Chest Pain, Sputum, Wheezing Cardiovascular: Reports: Dyspnea on Exertion. Denies: Chest Pain, Palpitations, Edema Gastrointestinal: Reports: No Symptoms. Denies: Abdominal Pain, Constipation, Diarrhea, Nausea, Vomiting Genitourinary: Reports: No Symptoms. Denies: Pain Musculoskeletal: Reports: No Symptoms Skin: Reports: No Symptoms. Denies: Cyanosis Neurological: Reports: No Symptoms. Denies: Confusion, Dizziness, Headache, Numbness, Pre-Existing Deficit, Seizure, Syncope, Tingling, Trouble Speaking, Difficulty Walking, Weakness, Gait Disturbance Psychiatric: Reports: No Symptoms - Patient Data Vitals - Most Recent: Last Vital Signs Temp 98.2 F 06/13/20 11:04 Pulse 85 06/13/20 11:04 Resp 20 06/13/20 11:04 BP 102/58 L 06/13/20 11:04 Pulse Ox 97 06/13/20 11:09 Weight - Most Recent: 173 lb 9.6 oz I&O - Last 24 Hours: Intake & Output 06/12/20 06/13/20 06/13/20 22:59 06:59 14:59 Intake Total 1374 500 120 Balance 1374 500 120 Lab Results Last 24 Hours: Laboratory Results - last 24 hr 06/13/20 06/13/20 Range/Units 04:37 04:37 WBC 17.99 H (4.23-9.07) K/mm3 RBC 3.90 L (4.63-6.08) M/mm3 Hgb 11.1 L (13.7-17.5) gm/dl Hct 33.9 L (40.1-51.0) % MCV 86.9 (79.0-92.2) fl MCH 28.5 (25.7-32.2) pg MCHC 32.7 (32.2-35.5) g/dl RDW Std Deviation 44.3 H (35.1-43.9) fL Plt Count 510 H (163-337) K/mm3 MPV 9.9 (9.4-12.3) fl Neut % (Auto) 91.3 H (34.0-67.9) % Lymph % (Auto) 3.4 L (21.8-53.1) % [place] % (Auto) 4.8 L (5.3-12.2) % Eos % (Auto) 0 L (0.8-7.0) Baso % (Auto) 0.1 (0.1-1.2) % Neut # (Auto) 16.42 H (1.78-5.38) K/mm3 Lymph # (Auto) 0.61 L (1.32-3.57) K/mm3 [place] # (Auto) 0.87 H (0.30-0.82) K/mm3 Eos # (Auto) 0.00 L (0.04-0.54) K/mm3 Baso # (Auto) 0.01 (0.01-0.08) K/mm3 Manual Slide Review Abnormal smear Sodium 147 H (136-145) mEq/L Potassium 4.0 (3.5-5.1) mEq/L Chloride 110 H (98-107) mEq/L Carbon Dioxide 25 (21-32) mEq/L Anion Gap 16.0 H (5-15) BUN 21 H (7-18) mg/dL Creatinine 1.0 (0.7-1.3) mg/dL Est Cr Clr Drug Dosing 86.80 mL/min Estimated GFR (MDRD) > 60 (>60) mL/min BUN/Creatinine Ratio 21.0 H (14-18) Glucose 153 H (74-106) mg/dL Calcium 8.0 L (8.5-10.1) mg/dL Magnesium 2.2 (1.8-2.4) mg/dl Total Bilirubin 0.4 (0.2-1.0) mg/dL AST 29 (15-37) U/L ALT 36 (16-63) U/L Alkaline Phosphatase 71 (46-116) U/L C-Reactive Protein 4.8 H* (<1.0) mg/dL Total Protein 6.2 L (6.4-8.2) g/dl Albumin 2.0 L (3.4-5.0) g/dl Globulin 4.2 gm/dL Albumin/Globulin Ratio 0.5 L (1-2) Joaquim Results Last 24 Hours: Microbiology 06/10/20 10:13 Aerobic Blood Culture - Preliminary Blood - Venous NO GROWTH AFTER 3 DAYS Anaerobic Blood Culture - Preliminary NO GROWTH AFTER 3 DAYS 06/10/20 10:20 Aerobic Blood Culture - Preliminary Blood - Venous - Lab Draw NO GROWTH AFTER 3 DAYS Anaerobic Blood Culture - Preliminary NO GROWTH AFTER 3 DAYS Med Orders - Current: Current Medications Acetaminophen (Acetaminophen 325 Mg Tab) 650 mg PO Q4H PRN PRN Reason: Pain (Mild 1-3)/fever Last Admin: 06/11/20 20:57 Dose: 650 mg Documented by: Albuterol/Ipratropium (Albuterol/Ipratropium 3.0-0.5 Mg/3 Ml Neb Soln) 3 ml NEB Q4H PRN PRN Reason: Shortness Of Breath/wheezing Aspirin (Aspirin 325 Mg Tab.Ec) 325 mg PO DAILY [facility] Last Admin: 06/13/20 09:11 Dose: 325 mg Documented by: Atorvastatin Calcium (Atorvastatin 20 Mg Tab) 20 mg PO DAILY [facility] Last Admin: 06/13/20 09:12 Dose: 20 mg Documented by: Cholecalciferol (Cholecalciferol (Vitamin D3) 5,000 Unit Cap) 5,000 unit PO DAILY [facility] Last Admin: 06/13/20 09:11 Dose: 5,000 unit Documented by: Citalopram Hydrobromide (Citalopram 20 Mg Tab) 40 mg PO DAILY [facility] Last Admin: 06/13/20 09:11 Dose: 40 mg Documented by: Dexamethasone (Dexamethasone 4 Mg Tab) 6 mg PO BID [facility] Last Admin: 06/13/20 09:11 Dose: 6 mg Documented by: Docusate Sodium (Docusate Sodium 100 Mg Cap) 100 mg PO BID PRN PRN Reason: Constipation Enoxaparin Sodium (Enoxaparin 40 Mg/0.4 Ml Syringe) 40 mg SUBCUT DAILY [facility] Last Admin: 06/13/20 09:10 Dose: 40 mg Documented by: Famotidine (Famotidine 20 Mg Tab) 20 mg PO BID [facility] Last Admin: 06/13/20 09:11 Dose: 20 mg Documented by: Fluticasone Propionate (Fluticasone Propionate Nasal [place] 16 Gm Bottle) 0 gm NASBOTH DAILY [facility] Last Admin: 06/13/20 09:10 Dose: 2 spray Documented by: Guaifenesin/Phenylephrine HCl (Guaifenesin/Dextromethorphan 100-10 Mg/5 Ml Soln 5 Ml Cup) 10 ml PO QID PRN PRN Reason: Cough Last Admin: 06/13/20 05:00 Dose: 10 ml Documented by: Ceftriaxone Sodium 2 gm/ (Sodium Chloride) 100 mls @ 200 mls/hr IV Q24H [facility] Stop: 06/14/20 13:29 Last Admin: 06/12/20 12:30 Dose: 200 mls/hr Documented by: Melatonin (Melatonin 3 Mg Tab) 9 mg PO BEDTIME [facility] Last Admin: 06/12/20 20:28 Dose: 9 mg Documented by: Ondansetron HCl (Ondansetron 4 Mg Tab.Dis) 4 mg PO Q4H PRN PRN Reason: nausea, able to take PO Oxycodone HCl (Oxycodone 5 Mg Tab) 5 mg PO Q4H PRN PRN Reason: Pain (moderate 4-6) Sodium Chloride (Sodium Chloride 0.9% 10 Ml Syringe) 10 ml FLUSH ASDIRECTED PRN PRN Reason: Keep Vein Open Last Admin: 06/11/20 11:17 Dose: 10 ml Documented by: Tamsulosin HCl (Tamsulosin 0.4 Mg Cap.Er) 0.8 mg PO DAILY [facility] Last Admin: 06/13/20 09:11 Dose: 0.8 mg Documented by: Temazepam (Temazepam 15 Mg Cap) 15 mg PO BEDTIME PRN PRN Reason: Sleep Zinc Sulfate (Zinc Sulfate 220 Mg Cap) 220 mg PO DAILY [facility] Last Admin: 06/13/20 09:12 Dose: 220 mg Documented by: Discontinued Medications Aspirin (Aspirin 81 Mg Tab.Ec) 81 mg PO DAILY [facility] Last Admin: 06/12/20 09:00 Dose: 81 mg Documented by: Dexamethasone (Dexamethasone 10 Mg/Ml Sdv) 6 mg IVPUSH ONETIME ONE Stop: 06/10/20 10:26 Last Admin: 06/10/20 10:52 Dose: 6 mg Documented by: Dextrose/Sodium Chloride (Dextrose 5%-Normal Saline) 1,000 mls @ 100 mls/hr IV ASDIRECTED [facility] Last Admin: 06/10/20 10:19 Dose: 100 mls/hr Documented by: Potassium Chloride 10 meq/ (Premix) 100 mls @ 100 mls/hr IV Q1H [facility] Stop: 06/10/20 14:29 Last Admin: 06/10/20 17:27 Dose: 100 mls/hr Documented by: Sodium Chloride (Normal Saline) 1,000 mls @ 50 mls/hr IV ASDIRECTED [facility] Last Admin: 06/11/20 20:57 Dose: 50 mls/hr Documented by: Sodium Chloride (Normal Saline) 100 mls @ 60 mls/hr IV ASDIRECTED [facility] Stop: 06/11/20 15:00 Last Admin: 06/11/20 11:17 Dose: 60 mls/hr Documented by: Tocilizumab 600 mg/ Sodium (Chloride) 100 mls @ 100 mls/hr IV ONETIME ONE Stop: 06/13/20 11:59 Last Admin: 06/13/20 10:58 Dose: 100 mls/hr Documented by: Ibuprofen (Ibuprofen 600 Mg Tab) 600 mg PO ONETIME ONE Stop: 06/10/20 10:35 Last Admin: 06/10/20 10:51 Dose: 600 mg Documented by: Iopamidol (Iopamidol 755 Mg/Ml 100 Ml Bottle) 100 ml IVPUSH ONETIME ONE Stop: 06/11/20 11:11 Last Admin: 06/11/20 11:17 Dose: 100 ml Documented by: Morphine Sulfate (Morphine 2 Mg/Ml Syringe) 2 mg IVPUSH Q2H PRN PRN Reason: Pain (severe 7-10) Stop: 06/11/20 12:02 Sodium Chloride (Sodium Chloride 0.9% 10 Ml Syringe) 10 ml FLUSH ONETIME ONE Stop: 06/11/20 12:01 Last Admin: 06/11/20 12:40 Dose: 10 ml Documented by: - Exam Quality Assessment: Supplemental Oxygen (High flow 50 L at 45%), DVT Prophylaxis. No: Urine Catheter General: Alert, Oriented, Cooperative, No Acute Distress HEENT: Pupils Equal, Pupils Reactive, Mucous Membr. Moist/[place] Neck: Supple, Trachea Midline Lungs: Normal Respiratory Effort, Decreased Breath Sounds, Rhonchi Cardiovascular: Regular Rate, Regular Rhythm GI/Abdominal Exam: Normal Bowel Sounds, Soft, Non-Tender, No Distention (Male) Exam: Deferred Back Exam: Normal Inspection, Full Range of Motion Extremities: Normal Inspection, Normal Range of Motion, Non-Tender, No Pedal Edema, Normal Capillary Refill Peripheral Pulses: 2+: Radial (L), Radial (R), Dorsalis Pedis (L), Dorsalis Pedis (R) Skin: Warm, Dry, Intact Neurological: No New Focal Deficit Psy/Mental Status: Alert, Normal Affect, Anxious - Patient Data Lab Results Last 24 hrs: Laboratory Results - last 24 hr 06/13/20 06/13/20 Range/Units 04:37 04:37 WBC 17.99 H (4.23-9.07) K/mm3 RBC 3.90 L (4.63-6.08) M/mm3 Hgb 11.1 L (13.7-17.5) gm/dl Hct 33.9 L (40.1-51.0) % MCV 86.9 (79.0-92.2) fl MCH 28.5 (25.7-32.2) pg MCHC 32.7 (32.2-35.5) g/dl RDW Std Deviation 44.3 H (35.1-43.9) fL Plt Count 510 H (163-337) K/mm3 MPV 9.9 (9.4-12.3) fl Neut % (Auto) 91.3 H (34.0-67.9) % Lymph % (Auto) 3.4 L (21.8-53.1) % [place] % (Auto) 4.8 L (5.3-12.2) % Eos % (Auto) 0 L (0.8-7.0) Baso % (Auto) 0.1 (0.1-1.2) % Neut # (Auto) 16.42 H (1.78-5.38) K/mm3 Lymph # (Auto) 0.61 L (1.32-3.57) K/mm3 [place] # (Auto) 0.87 H (0.30-0.82) K/mm3 Eos # (Auto) 0.00 L (0.04-0.54) K/mm3 Baso # (Auto) 0.01 (0.01-0.08) K/mm3 Manual Slide Review Abnormal smear Sodium 147 H (136-145) mEq/L Potassium 4.0 (3.5-5.1) mEq/L Chloride 110 H (98-107) mEq/L Carbon Dioxide 25 (21-32) mEq/L Anion Gap 16.0 H (5-15) BUN 21 H (7-18) mg/dL Creatinine 1.0 (0.7-1.3) mg/dL Est Cr Clr Drug Dosing 86.80 mL/min Estimated GFR (MDRD) > 60 (>60) mL/min BUN/Creatinine Ratio 21.0 H (14-18) Glucose 153 H (74-106) mg/dL Calcium 8.0 L (8.5-10.1) mg/dL Magnesium 2.2 (1.8-2.4) mg/dl Total Bilirubin 0.4 (0.2-1.0) mg/dL AST 29 (15-37) U/L ALT 36 (16-63) U/L Alkaline Phosphatase 71 (46-116) U/L C-Reactive Protein 4.8 H* (<1.0) mg/dL Total Protein 6.2 L (6.4-8.2) g/dl Albumin 2.0 L (3.4-5.0) g/dl Globulin 4.2 gm/dL Albumin/Globulin Ratio 0.5 L (1-2) Result Diagrams: 06/13/20 04:37 06/13/20 04:37 Joaquim Results Last 24 hrs: Microbiology 06/10/20 10:13 Aerobic Blood Culture - Preliminary Blood - Venous NO GROWTH AFTER 3 DAYS Anaerobic Blood Culture - Preliminary NO GROWTH AFTER 3 DAYS 06/10/20 10:20 Aerobic Blood Culture - Preliminary Blood - Venous - Lab Draw NO GROWTH AFTER 3 DAYS Anaerobic Blood Culture - Preliminary NO GROWTH AFTER 3 DAYS Sepsis Event Note - Evaluation Sepsis Screening Result: No Definite Risk - Focused Exam Vital Signs: Vital Signs Temp Temp Pulse Pulse Resp BP BP 06/13/20 11:09 06/13/20 11:04 98.2 F 85 20 102/58 L 06/13/20 09:50 06/13/20 09:26 97.2 F 87 22 H 104/64 06/13/20 04:14 97.7 F 20 131/63 06/13/20 04:00 79 Pulse Ox Pulse Ox 06/13/20 11:09 97 06/13/20 11:04 91 L 06/13/20 09:50 89 L 06/13/20 09:26 84 L 06/13/20 04:14 06/13/20 04:00 89 L - Problem List & Annotations (1) Acute respiratory failure SNOMED Code(s): 02540369 Code(s): J96.00 - ACUTE RESPIRATORY FAILURE, UNSP W HYPOXIA OR HYPERCAPNIA Status: Acute Priority: High Current Visit: Yes Qualifiers: Respiratory failure complication: hypoxia Qualified Code(s): J96.01 - Acute respiratory failure with hypoxia (2) COVID-19 determined by clinical diagnostic criteria SNOMED Code(s): 016663807, 575643740 Code(s): U07.1 - COVID-19 Status: Acute Priority: High Current Visit: Yes (3) Hypoxia SNOMED Code(s): 743881312 Code(s): R09.02 - HYPOXEMIA Status: Acute Priority: High Current Visit: Yes (4) Bradycardia SNOMED Code(s): 59906187 Code(s): R00.1 - BRADYCARDIA, UNSPECIFIED Status: Acute Priority: High Current Visit: Yes (5) Hypokalemia SNOMED Code(s): 67409935 Code(s): E87.6 - HYPOKALEMIA Status: Resolved Priority: High Current Visit: Yes - Problem List Review Problem List Initiated/Reviewed/Updated: Yes - My Orders Last 24 Hours: My Active Orders 06/12/20 15:30 Cholecalciferol (Vitamin D3) [Vitamin D3] 5,000 unit PO DAILY Zinc Sulfate [Zincate] 220 mg PO DAILY 06/12/20 15:38 Isolation [COMM] Routine 06/12/20 21:00 Famotidine [Pepcid] 20 mg PO BID Melatonin 9 mg PO BEDTIME 06/13/20 09:00 Aspirin [Ecotrin] 325 mg PO DAILY 06/13/20 09:42 RT Oxygen High Flow [RESPCARE] Routine 06/14/20 05:11 CBC WITH AUTO DIFF [HEME] AM CMP [COMPREHENSIVE METABOLIC PN,CMP] [CHEM] AM CRP [C-REACTIVE PROTEIN] [CHEM] AM MAGNESIUM [CHEM] AM 06/14/20 08:00 Echo 2D wo Cont [US] Routine 06/14/20 15:19 DD [D-DIMER QUANTITATIVE] [COAG] Q48H 06/15/20 05:11 CBC WITH AUTO DIFF [HEME] AM CMP [COMPREHENSIVE METABOLIC PN,CMP] [CHEM] AM CRP [C-REACTIVE PROTEIN] [CHEM] AM MAGNESIUM [CHEM] AM 06/16/20 05:11 CBC WITH AUTO DIFF [HEME] AM CMP [COMPREHENSIVE METABOLIC PN,CMP] [CHEM] AM CRP [C-REACTIVE PROTEIN] [CHEM] AM MAGNESIUM [CHEM] AM 06/16/20 15:19 DD [D-DIMER QUANTITATIVE] [COAG] Q48H 06/18/20 15:19 DD [D-DIMER QUANTITATIVE] [COAG] Q48H - Assessment Assessment:: 06/11/20 * Patient is outside the window for safe use of remdesivir as well his he is al so had transfusion of immunomodulators * Allergic to azithromycin * Rocephin 2gm IV q 24 hours day 3/ to treat Covid pneumonia * ASA 81mg daily * Dexamethasone 6mg po bid * IV fluids at 50 mL/h * IS and acapella * RT to titrate O2 * Lovenox for DVT prophylaxis * O2 saturations decreased into the 80's on 1 liter. Pt O2 increased to 3l/nc LABS: WBC 8.97->10.20 HGB 11.2->11.8 HCT 33.8->36.4 PLT 351->441 Neut% 86.3->85.7 Ddimer 1.07->2.27 K+ 3.2->3.8 Anion Gap 14.2->16.8 BUN 22->19 Cre 1.1->1.1 GFR >60 Gluc 115->142 Ca 8.2->8.1 LDH 347->346 Trop <0.017 CRP 23.3->17.8 ProBNP [address] of the chest: 1. No findings of pulmonary embolism 2. Diffuse parenchymal changes seen within both lungs compatible with so-called COVID-19 pneumonia. 3. No other acute abnormality is appreciated. 06/12/2020: * Patient has worsening respiratory status and is up to 6 L currently * Patient has not been proning or using his IS/acapella very much. We discussed this. * Increase aspirin to 325 daily. * Discontinue IV fluids. * Start 5000 unit vitamin D on 220 mg zinc supplementation. * Start Pepcid twice daily 20 mg for GI prophylaxis due to significant steroid * Continue current treatment plan. * Recheck labs tomorrow and D-dimer every 48. * Labs today: * WBC 14.74. * Hemoglobin of 10.5. * Neutrophils elevated 91.4%. * D-dimer 1.78. * Sodium 146. * Potassium 4.6. * Anion gap 14.2. * GFR greater than 60. * Glucose 167. * Hemoglobin A1c 6.4. * Bilirubin 0.3. * AST 31, ALT 10, alkaline phosphatase 67. * LDH 335. * CRP 7.6. * Albumin 1.9. * Blood cultures remain negative * Should patient continue to have decreasing saturations we will change to high flow O2. 06/13/2020: * Continues to have worsening respiratory status and difficulty recovering after activity. * Switched to high flow oxygen 50 L at 45%. * Given worsening respiratory status decision made to give patient Actemra * Recheck labs tomorrow, including D-dimer. * On high flow oxygen saturation in mid to upper 90s. * Labs today: * WBC 17.99. * Hemoglobin 11.1. * Platelet 510,000. * Sodium 147. * Anion gap 16.0. * BUN 21. Creatinine 1.0. GFR greater than 60. * Glucose 153. * Calcium 8.0. * CRP 4.8. * Albumin 2.0. * Consider decreasing steroid to once daily once patient stabilizes. * Given patient's prior bradycardia episode will order echocardiogram for tomorrow morning as this service is not available on weekends. * Consider upgrading patient to ICU status if respiratory status does not stabilize. - Plan Plan:: Acute respiratory failure COVID-19 determined by clinical diagnostic criteria Pneumonia due to COVID-19 virus Bradycardia * O2 titrate to keep sats 88-96% * RT to continue with IS and acapella * Continue Rocephin IV 2gm - day 4/5 * Pt is out of the window for Remdesivir and has had monoclonal antibodies * Repeat labs in the AM, D-Dimer Q48h * Encourage prone positioning * Encourage ambulation in the room when awake * Continue dexamethasone * Albuterol inhaler prn * Monitor blood sugars * Telemetry and continuous pulse oximetry * Start zinc and vitamin D supplementation * Melatonin at bedtime * Increase ASA to 325mg daily * Highflow O2 as directed * O2 goal saturations of 88-96% * Airborne/contact precautions * Actemra ordered today * Echocardiogram tomorrow AM (unavailable on weekend) due to bradycardia, frequent PVCs. PCP: Liberty Palmer PA-C Code Status: Full code DVT prophylaxis: Lovenox and ASA GI prophylaxis: BID Pepcid Disposition: Patient admitted to the medical floor on telemetry for management of COVID-19 symptoms. Anticipated LOS 4-5 days.
[2020-06-13] MEDS: Benzonatate 100 MG Cap PO SCH ×2 (15:18→20:10)
[2020-06-13] MEDS: Melatonin 3 MG Tab PO SCH (20:10)
--- NOTE | 2020-06-14 07:12 | PCM.PN ---
- General Info Date of Service: 06/14/20 Admission Dx/Problem (Free Text): Admission Diagnosis/Problem Admission Diagnosis/Problem Viral pneumonia Functional Status: Reports: Pain Controlled, Tolerating Diet, Ambulating, Urinating, Incentive Spirometry, Other (Acapella ). Denies: New Symptoms - Review of Systems General: Reports: No Symptoms, Weakness (improved ), Fatigue (improved ), Malaise (improved ). Denies: Fever, Chills HEENT: Reports: No Symptoms. Denies: Headaches, Sore Throat Pulmonary: Reports: Shortness of Breath, Cough, Sputum. Denies: Pleuritic Chest Pain, Wheezing Cardiovascular: Reports: No Symptoms, Dyspnea on Exertion. Denies: Chest Pain, Palpitations, Edema, Lightheadedness Gastrointestinal: Reports: No Symptoms. Denies: Abdominal Pain, Constipation, Diarrhea, Nausea, Vomiting Genitourinary: Reports: No Symptoms. Denies: Pain Musculoskeletal: Reports: No Symptoms Skin: Reports: No Symptoms. Denies: Cyanosis Neurological: Reports: No Symptoms, Difficulty Walking (becomes SOB ), Weakness. Denies: Confusion, Dizziness, Headache, Numbness, Pre-Existing Deficit, Seizure, Syncope, Tingling, Trouble Speaking, Gait Disturbance Psychiatric: Reports: No Symptoms - Patient Data Vitals - Most Recent: Last Vital Signs Temp 97.9 F 06/14/20 02:02 Pulse 78 06/14/20 02:02 Resp 22 H 06/14/20 02:02 BP 127/65 06/14/20 02:02 Pulse Ox 92 L 06/14/20 06:47 Weight - Most Recent: 173 lb I&O - Last 24 Hours: Intake & Output 06/13/20 06/14/20 06/14/20 22:59 06:59 14:59 Intake Total 1480 400 Output Total 600 Balance 1480 -200 Lab Results Last 24 Hours: Laboratory Results - last 24 hr 06/14/20 06/14/20 06/14/20 Range/Units 06:19 06:19 06:19 WBC 15.79 H (4.23-9.07) K/mm3 RBC 3.96 L (4.63-6.08) M/mm3 Hgb 11.2 L (13.7-17.5) gm/dl Hct 34.0 L (40.1-51.0) % MCV 85.9 (79.0-92.2) fl MCH 28.3 (25.7-32.2) pg MCHC 32.9 (32.2-35.5) g/dl RDW Std Deviation 44.1 H (35.1-43.9) fL Plt Count 544 H (163-337) K/mm3 MPV 9.8 (9.4-12.3) fl Neut % (Auto) 90.6 H (34.0-67.9) % Lymph % (Auto) 4.6 L (21.8-53.1) % [place] % (Auto) 4.2 L (5.3-12.2) % Eos % (Auto) 0 L (0.8-7.0) Baso % (Auto) 0.1 (0.1-1.2) % Neut # (Auto) 14.30 H (1.78-5.38) K/mm3 Lymph # (Auto) 0.73 L (1.32-3.57) K/mm3 [place] # (Auto) 0.66 (0.30-0.82) K/mm3 Eos # (Auto) 0.00 L (0.04-0.54) K/mm3 Baso # (Auto) 0.02 (0.01-0.08) K/mm3 Manual Slide Review Abnormal smear D-Dimer, Quantitative 5.98 H (0.19-0.50) mg/L Sodium 142 (136-145) mEq/L Potassium 4.0 (3.5-5.1) mEq/L Chloride 107 (98-107) mEq/L Carbon Dioxide 22 (21-32) mEq/L Anion Gap 17.0 H (5-15) BUN 24 H (7-18) mg/dL Creatinine 1.0 (0.7-1.3) mg/dL Est Cr Clr Drug Dosing 86.80 mL/min Estimated GFR (MDRD) > 60 (>60) mL/min BUN/Creatinine Ratio 24.0 H (14-18) Glucose 152 H (74-106) mg/dL Calcium 7.5 L (8.5-10.1) mg/dL Magnesium 2.3 (1.8-2.4) mg/dl Total Bilirubin 0.4 (0.2-1.0) mg/dL AST 37 (15-37) U/L ALT 49 (16-63) U/L Alkaline Phosphatase 66 (46-116) U/L C-Reactive Protein 4.5 H* (<1.0) mg/dL Total Protein 5.9 L (6.4-8.2) g/dl Albumin 2.0 L (3.4-5.0) g/dl Globulin 3.9 gm/dL Albumin/Globulin Ratio 0.5 L (1-2) Joaquim Results Last 24 Hours: Microbiology 06/10/20 10:13 Aerobic Blood Culture - Preliminary Blood - Venous NO GROWTH AFTER 3 DAYS Anaerobic Blood Culture - Preliminary NO GROWTH AFTER 3 DAYS 06/10/20 10:20 Aerobic Blood Culture - Preliminary Blood - Venous - Lab Draw NO GROWTH AFTER 3 DAYS Anaerobic Blood Culture - Preliminary NO GROWTH AFTER 3 DAYS Med Orders - Current: Current Medications Acetaminophen (Acetaminophen 325 Mg Tab) 650 mg PO Q4H PRN PRN Reason: Pain (Mild 1-3)/fever Last Admin: 06/11/20 20:57 Dose: 650 mg Documented by: Albuterol/Ipratropium (Albuterol/Ipratropium 3.0-0.5 Mg/3 Ml Neb Soln) 3 ml NEB Q4H PRN PRN Reason: Shortness Of Breath/wheezing Aspirin (Aspirin 325 Mg Tab.Ec) 325 mg PO DAILY [facility] Last Admin: 06/13/20 09:11 Dose: 325 mg Documented by: Atorvastatin Calcium (Atorvastatin 20 Mg Tab) 20 mg PO DAILY [facility] Last Admin: 06/13/20 09:12 Dose: 20 mg Documented by: Benzonatate (Benzonatate 100 Mg Cap) 100 mg PO TID [facility] Last Admin: 06/13/20 20:10 Dose: 100 mg Documented by: Cholecalciferol (Cholecalciferol (Vitamin D3) 5,000 Unit Cap) 5,000 unit PO DAILY [facility] Last Admin: 06/13/20 09:11 Dose: 5,000 unit Documented by: Citalopram Hydrobromide (Citalopram 20 Mg Tab) 40 mg PO DAILY [facility] Last Admin: 06/13/20 09:11 Dose: 40 mg Documented by: Dexamethasone (Dexamethasone 4 Mg Tab) 6 mg PO BID [facility] Last Admin: 06/13/20 20:10 Dose: 6 mg Documented by: Docusate Sodium (Docusate Sodium 100 Mg Cap) 100 mg PO BID PRN PRN Reason: Constipation Enoxaparin Sodium (Enoxaparin 40 Mg/0.4 Ml Syringe) 40 mg SUBCUT DAILY [facility] Last Admin: 06/13/20 09:10 Dose: 40 mg Documented by: Famotidine (Famotidine 20 Mg Tab) 20 mg PO BID [facility] Last Admin: 06/13/20 20:10 Dose: 20 mg Documented by: Fluticasone Propionate (Fluticasone Propionate Nasal [place] 16 Gm Bottle) 0 gm NASBOTH DAILY [facility] Last Admin: 06/13/20 09:10 Dose: 2 spray Documented by: Guaifenesin/Phenylephrine HCl (Guaifenesin/Dextromethorphan 100-10 Mg/5 Ml Soln 5 Ml Cup) 10 ml PO QID PRN PRN Reason: Cough Last Admin: 06/13/20 05:00 Dose: 10 ml Documented by: Ceftriaxone Sodium 2 gm/ (Sodium Chloride) 100 mls @ 200 mls/hr IV Q24H [facility] Stop: 06/14/20 13:29 Last Admin: 06/13/20 12:31 Dose: 200 mls/hr Documented by: Melatonin (Melatonin 3 Mg Tab) 9 mg PO BEDTIME [facility] Last Admin: 06/13/20 20:10 Dose: 9 mg Documented by: Ondansetron HCl (Ondansetron 4 Mg Tab.Dis) 4 mg PO Q4H PRN PRN Reason: nausea, able to take PO Oxycodone HCl (Oxycodone 5 Mg Tab) 5 mg PO Q4H PRN PRN Reason: Pain (moderate 4-6) Sodium Chloride (Sodium Chloride 0.9% 10 Ml Syringe) 10 ml FLUSH ASDIRECTED PRN PRN Reason: Keep Vein Open Last Admin: 06/11/20 11:17 Dose: 10 ml Documented by: Tamsulosin HCl (Tamsulosin 0.4 Mg Cap.Er) 0.8 mg PO DAILY [facility] Last Admin: 06/13/20 09:11 Dose: 0.8 mg Documented by: Temazepam (Temazepam 15 Mg Cap) 15 mg PO BEDTIME PRN PRN Reason: Sleep Zinc Sulfate (Zinc Sulfate 220 Mg Cap) 220 mg PO DAILY [facility] Last Admin: 06/13/20 09:12 Dose: 220 mg Documented by: Discontinued Medications Aspirin (Aspirin 81 Mg Tab.Ec) 81 mg PO DAILY [facility] Last Admin: 06/12/20 09:00 Dose: 81 mg Documented by: Dexamethasone (Dexamethasone 10 Mg/Ml Sdv) 6 mg IVPUSH ONETIME ONE Stop: 06/10/20 10:26 Last Admin: 06/10/20 10:52 Dose: 6 mg Documented by: Dextrose/Sodium Chloride (Dextrose 5%-Normal Saline) 1,000 mls @ 100 mls/hr IV ASDIRECTED [facility] Last Admin: 06/10/20 10:19 Dose: 100 mls/hr Documented by: Potassium Chloride 10 meq/ (Premix) 100 mls @ 100 mls/hr IV Q1H [facility] Stop: 06/10/20 14:29 Last Admin: 06/10/20 17:27 Dose: 100 mls/hr Documented by: Sodium Chloride (Normal Saline) 1,000 mls @ 50 mls/hr IV ASDIRECTED [facility] Last Admin: 06/11/20 20:57 Dose: 50 mls/hr Documented by: Sodium Chloride (Normal Saline) 100 mls @ 60 mls/hr IV ASDIRECTED [facility] Stop: 06/11/20 15:00 Last Admin: 06/11/20 11:17 Dose: 60 mls/hr Documented by: Tocilizumab 600 mg/ Sodium (Chloride) 100 mls @ 100 mls/hr IV ONETIME ONE Stop: 06/13/20 11:59 Last Admin: 06/13/20 10:58 Dose: 100 mls/hr Documented by: Ibuprofen (Ibuprofen 600 Mg Tab) 600 mg PO ONETIME ONE Stop: 06/10/20 10:35 Last Admin: 06/10/20 10:51 Dose: 600 mg Documented by: Iopamidol (Iopamidol 755 Mg/Ml 100 Ml Bottle) 100 ml IVPUSH ONETIME ONE Stop: 06/11/20 11:11 Last Admin: 06/11/20 11:17 Dose: 100 ml Documented by: Morphine Sulfate (Morphine 2 Mg/Ml Syringe) 2 mg IVPUSH Q2H PRN PRN Reason: Pain (severe 7-10) Stop: 06/11/20 12:02 Sodium Chloride (Sodium Chloride 0.9% 10 Ml Syringe) 10 ml FLUSH ONETIME ONE Stop: 06/11/20 12:01 Last Admin: 06/11/20 12:40 Dose: 10 ml Documented by: - Exam Quality Assessment: Supplemental Oxygen (High flow O2 - 40L and 45% ), DVT Prophylaxis General: Alert, Oriented, Cooperative, No Acute Distress HEENT: Pupils Equal, Pupils Reactive, Mucous Membr. Moist/[place] Neck: Supple, Trachea Midline Lungs: Normal Respiratory Effort, Decreased Breath Sounds, Crackles. No: Rales, Rhonchi, Wheezing Cardiovascular: Regular Rate, Regular Rhythm GI/Abdominal Exam: Normal Bowel Sounds, Soft, Non-Tender, No Distention, No Abnormal Bruit (Male) Exam: Deferred Back Exam: Normal Inspection, Full Range of Motion Extremities: Normal Inspection, Normal Range of Motion, Non-Tender, No Pedal Edema, Normal Capillary Refill Peripheral Pulses: 2+: Radial (L), Radial (R), Dorsalis Pedis (L), Dorsalis Pedis (R) Skin: Warm, Dry, Intact Neurological: No New Focal Deficit Psy/Mental Status: Alert, Normal Affect, Normal Mood - Patient Data Lab Results Last 24 hrs: Laboratory Results - last 24 hr 06/14/20 06/14/20 06/14/20 Range/Units 06:19 06:19 06:19 WBC 15.79 H (4.23-9.07) K/mm3 RBC 3.96 L (4.63-6.08) M/mm3 Hgb 11.2 L (13.7-17.5) gm/dl Hct 34.0 L (40.1-51.0) % MCV 85.9 (79.0-92.2) fl MCH 28.3 (25.7-32.2) pg MCHC 32.9 (32.2-35.5) g/dl RDW Std Deviation 44.1 H (35.1-43.9) fL Plt Count 544 H (163-337) K/mm3 MPV 9.8 (9.4-12.3) fl Neut % (Auto) 90.6 H (34.0-67.9) % Lymph % (Auto) 4.6 L (21.8-53.1) % [place] % (Auto) 4.2 L (5.3-12.2) % Eos % (Auto) 0 L (0.8-7.0) Baso % (Auto) 0.1 (0.1-1.2) % Neut # (Auto) 14.30 H (1.78-5.38) K/mm3 Lymph # (Auto) 0.73 L (1.32-3.57) K/mm3 [place] # (Auto) 0.66 (0.30-0.82) K/mm3 Eos # (Auto) 0.00 L (0.04-0.54) K/mm3 Baso # (Auto) 0.02 (0.01-0.08) K/mm3 Manual Slide Review Abnormal smear D-Dimer, Quantitative 5.98 H (0.19-0.50) mg/L Sodium 142 (136-145) mEq/L Potassium 4.0 (3.5-5.1) mEq/L Chloride 107 (98-107) mEq/L Carbon Dioxide 22 (21-32) mEq/L Anion Gap 17.0 H (5-15) BUN 24 H (7-18) mg/dL Creatinine 1.0 (0.7-1.3) mg/dL Est Cr Clr Drug Dosing 86.80 mL/min Estimated GFR (MDRD) > 60 (>60) mL/min BUN/Creatinine Ratio 24.0 H (14-18) Glucose 152 H (74-106) mg/dL Calcium 7.5 L (8.5-10.1) mg/dL Magnesium 2.3 (1.8-2.4) mg/dl Total Bilirubin 0.4 (0.2-1.0) mg/dL AST 37 (15-37) U/L ALT 49 (16-63) U/L Alkaline Phosphatase 66 (46-116) U/L C-Reactive Protein 4.5 H* (<1.0) mg/dL Total Protein 5.9 L (6.4-8.2) g/dl Albumin 2.0 L (3.4-5.0) g/dl Globulin 3.9 gm/dL Albumin/Globulin Ratio 0.5 L (1-2) Result Diagrams: 06/14/20 06:19 06/14/20 06:19 Joaquim Results Last 24 hrs: Microbiology 06/10/20 10:13 Aerobic Blood Culture - Preliminary Blood - Venous NO GROWTH AFTER 3 DAYS Anaerobic Blood Culture - Preliminary NO GROWTH AFTER 3 DAYS 06/10/20 10:20 Aerobic Blood Culture - Preliminary Blood - Venous - Lab Draw NO GROWTH AFTER 3 DAYS Anaerobic Blood Culture - Preliminary NO GROWTH AFTER 3 DAYS Sepsis Event Note - Evaluation Sepsis Screening Result: No Definite Risk - Focused Exam Vital Signs: Vital Signs Temp Pulse Resp BP Pulse Ox Pulse Ox 06/14/20 06:47 92 L 06/14/20 02:02 97.9 F 78 22 H 127/65 85 L 06/13/20 21:01 96 06/13/20 20:28 91 L 06/13/20 20:12 98.6 F 79 20 136/63 90 L - Problem List & Annotations (1) Acute respiratory failure SNOMED Code(s): 02832831 Code(s): J96.00 - ACUTE RESPIRATORY FAILURE, UNSP W HYPOXIA OR HYPERCAPNIA Status: Acute Priority: High Current Visit: Yes Qualifiers: Respiratory failure complication: hypoxia Qualified Code(s): J96.01 - Acute respiratory failure with hypoxia (2) COVID-19 determined by clinical diagnostic criteria SNOMED Code(s): 029483401, 861491316 Code(s): U07.1 - COVID-19 Status: Acute Priority: High Current Visit: Yes (3) Hypoxia SNOMED Code(s): 809869813 Code(s): R09.02 - HYPOXEMIA Status: Acute Priority: High Current Visit: Yes (4) Bradycardia SNOMED Code(s): 18867925 Code(s): R00.1 - BRADYCARDIA, UNSPECIFIED Status: Acute Priority: High Current Visit: Yes (5) Hypokalemia SNOMED Code(s): 88579505 Code(s): E87.6 - HYPOKALEMIA Status: Resolved Priority: High Current Visit: Yes (6) Elevated d-dimer SNOMED Code(s): 511302006 Code(s): R79.89 - OTHER SPECIFIED ABNORMAL FINDINGS OF BLOOD CHEMISTRY Status: Acute Priority: High Current Visit: Yes - Problem List Review Problem List Initiated/Reviewed/Updated: Yes - My Orders Last 24 Hours: My Active Orders 06/13/20 09:00 Aspirin [Ecotrin] 325 mg PO DAILY 06/13/20 09:42 RT Oxygen High Flow [RESPCARE] Routine 06/13/20 15:00 Benzonatate [Tessalon Perles] 100 mg PO TID 06/14/20 08:00 Echo 2D wo Cont [US] Routine 06/15/20 05:11 CBC WITH AUTO DIFF [HEME] AM CMP [COMPREHENSIVE METABOLIC PN,CMP] [CHEM] AM CRP [C-REACTIVE PROTEIN] [CHEM] AM MAGNESIUM [CHEM] AM 06/16/20 05:11 CBC WITH AUTO DIFF [HEME] AM CMP [COMPREHENSIVE METABOLIC PN,CMP] [CHEM] AM CRP [C-REACTIVE PROTEIN] [CHEM] AM MAGNESIUM [CHEM] AM 06/16/20 15:19 DD [D-DIMER QUANTITATIVE] [COAG] Q48H 06/18/20 15:19 DD [D-DIMER QUANTITATIVE] [COAG] Q48H - Assessment Assessment:: 06/11/20 * Patient is outside the window for safe use of remdesivir as well his he is also had transfusion of immunomodulators * Allergic to azithromycin * Rocephin 2gm IV q 24 hours day 3 to treat Covid pneumonia * ASA 81mg daily * Dexamethasone 6mg po bid * IV fluids at 50 mL/h * IS and acapella * RT to titrate O2 * Lovenox for DVT prophylaxis * O2 saturations decreased into the 80's on 1 liter. Pt O2 increased to 3l/nc LABS: WBC 8.97->10.20 HGB 11.2->11.8 HCT 33.8->36.4 PLT 351->441 Neut% 86.3->85.7 Ddimer 1.07->2.27 K+ 3.2->3.8 Anion Gap 14.2->16.8 BUN 22->19 Cre 1.1->1.1 GFR >60 Gluc 115->142 Ca 8.2->8.1 LDH 347->346 Trop <0.017 CRP 23.3->17.8 ProBNP [address] of the chest: 1. No findings of pulmonary embolism 2. Diffuse parenchymal changes seen within both lungs compatible with so-called COVID-19 pneumonia. 3. No other acute abnormality is appreciated. 06/12/2020: * Patient has worsening respiratory status and is up to 6 L currently * Patient has not been proning or using his IS/acapella very much. We discussed this. * Increase aspirin to 325 daily. * Discontinue IV fluids. * Start 5000 unit vitamin D on 220 mg zinc supplementation. * Start Pepcid twice daily 20 mg for GI prophylaxis due to significant steroid * Continue current treatment plan. * Recheck labs tomorrow and D-dimer every 48. * Labs today: * WBC 14.74. * Hemoglobin of 10.5. * Neutrophils elevated 91.4%. * D-dimer 1.78. * Sodium 146. * Potassium 4.6. * Anion gap 14.2. * GFR greater than 60. * Glucose 167. * Hemoglobin A1c 6.4. * Bilirubin 0.3. * AST 31, ALT 10, alkaline phosphatase 67. * LDH 335. * CRP 7.6. * Albumin 1.9. * Blood cultures remain negative * Should patient continue to have decreasing saturations we will change to high flow O2. 06/13/2020: * Continues to have worsening respiratory status and difficulty recovering after activity. * Switched to high flow oxygen 50 L at 45%. * Given worsening respiratory status decision made to give patient Actemra * Recheck labs tomorrow, including D-dimer. * On high flow oxygen saturation in mid to upper 90s. * Labs today: * WBC 17.99. * Hemoglobin 11.1. * Platelet 510,000. * Sodium 147. * Anion gap 16.0. * BUN 21. Creatinine 1.0. GFR greater than 60. * Glucose 153. * Calcium 8.0. * CRP 4.8. * Albumin 2.0. * Consider decreasing steroid to once daily once patient stabilizes. * Given patient's prior bradycardia episode will order echocardiogram for tomorrow morning as this service is not available on weekends. * Consider upgrading patient to ICU status if respiratory status does not stabilize. 06/14/2020: * Is on high flow although improved to 40 L at 45%. * Reports he feels better today and clinically looks better today * D-dimer today is elevated substantially and due to this we will increase Loven ox to 40 mg twice daily * Consider repeat angiogram pending D-dimer results tomorrow. * Echocardiogram today * Labs today: * WBC 15.79. * Hemoglobin 11.2. * Platelet 544,000. * Neutrophils elevated at 90.6%. * D-dimer elevated at 5.98. * Sodium 142. * Potassium 4.0. * Anion gap 17.0. * BUN 24. Creatinine 1.0. GFR greater than 60. * CRP 4.5. * Albumin 2.0. * Continue current treatment plan. - Plan Plan:: Acute respiratory failure COVID-19 determined by clinical diagnostic criteria Pneumonia due to COVID-19 virus Bradycardia Elevated D-dimer * O2 titrate to keep sats 88-96% * RT to continue with IS and acapella * Continue Rocephin IV 2gm - day 06/30 * Pt is out of the window for Remdesivir and has had monoclonal antibodies * Repeat labs in the AM, D-Dimer Q48h * Encourage prone positioning * Encourage ambulation in the room when awake * Continue dexamethasone * Albuterol inhaler prn * Monitor blood sugars * Telemetry and continuous pulse oximetry * Start zinc and vitamin D supplementation * Melatonin at bedtime * Increase ASA to 325mg daily * Highflow O2 as directed * O2 goal saturations of 88-96% * Airborne/contact precautions * Actemra given * Echocardiogram today due to bradycardia, frequent PVCs. * Increase lovenox to 40mg BID due to elevated D-dimer * Consider repeat angiogram PCP: Liberty Palmer PA-C Code Status: Full code DVT prophylaxis: Lovenox and ASA GI prophylaxis: BID Pepcid Disposition: Patient admitted to the medical floor on telemetry for management of COVID-19 symptoms. LOS >96 HRS due to slow response to COVID-19 treatment
[2020-06-14] MEDS: Famotidine 20 MG Tab PO SCH ×2 (09:06→20:17)
[2020-06-14] MEDS: Citalopram 20 MG Tab PO SCH (09:06)
[2020-06-14] MEDS: Aspirin 325 MG Tab.EC PO SCH (09:06)
[2020-06-14] MEDS: atorvaSTATin 20 MG Tab PO SCH (09:06)
[2020-06-14] MEDS: Fluticasone Propionate Nasal Spray 16 GM Bottle NASBOTH SCH (09:06)
[2020-06-14] MEDS: Enoxaparin 40 MG/0.4 ML Syringe SUBCUT SCH ×2 (09:06→20:17)
[2020-06-14] MEDS: Dexamethasone 4 MG Tab PO SCH ×2 (09:06→20:17)
[2020-06-14] MEDS: Tamsulosin 0.4 MG Cap.ER PO SCH (09:06)
[2020-06-14] MEDS: Zinc Sulfate 220 MG Cap PO SCH (09:07)
[2020-06-14] MEDS: Benzonatate 100 MG Cap PO SCH ×3 (09:07→20:17)
[2020-06-14] MEDS: Cholecalciferol (Vitamin D3) 5,000 UNIT Cap PO SCH (09:07)
[2020-06-14] MEDS: cefTRIAXone 2 GM in Sodium Chloride 0.9% 100 ML IV SCH (13:06)
[2020-06-14] MEDS: Melatonin 3 MG Tab PO SCH (20:17)
--- NOTE | 2020-06-15 07:27 | PCM.PN ---
- General Info Date of Service: 06/15/20 Admission Dx/Problem (Free Text): Admission Diagnosis/Problem Admission Diagnosis/Problem Viral pneumonia Functional Status: Reports: Pain Controlled, Tolerating Diet, Ambulating, Urinating, Incentive Spirometry, Other (Acapella ). Denies: New Symptoms - Review of Systems General: Reports: No Symptoms, Weakness (improving ). Denies: Fever, Fatigue, Malaise, Chills HEENT: Reports: No Symptoms. Denies: Headaches, Sore Throat Pulmonary: Reports: No Symptoms, Shortness of Breath, Cough, Sputum. Denies: Pleuritic Chest Pain, Wheezing Cardiovascular: Reports: No Symptoms, Dyspnea on Exertion. Denies: Chest Pain, Palpitations, Edema Gastrointestinal: Reports: No Symptoms. Denies: Abdominal Pain, Constipation, Diarrhea, Nausea, Vomiting Genitourinary: Reports: No Symptoms. Denies: Pain Musculoskeletal: Reports: No Symptoms Skin: Reports: No Symptoms. Denies: Cyanosis Neurological: Reports: No Symptoms, Difficulty Walking (2/2 SOB ). Denies: Confusion, Dizziness, Headache, Numbness, Pre-Existing Deficit, Seizure, Syncope, Tingling, Tremors, Trouble Speaking Psychiatric: Reports: No Symptoms - Patient Data Vitals - Most Recent: Last Vital Signs Temp 97.9 F 06/15/20 04:37 Pulse 94 06/15/20 04:37 Resp 14 06/14/20 19:41 BP 117/55 L 06/15/20 04:37 Pulse Ox 94 L 06/15/20 05:20 Weight - Most Recent: 173 lb I&O - Last 24 Hours: Intake & Output 06/14/20 06/15/20 06/15/20 22:59 06:59 14:59 Intake Total 1770 400 Output Total 700 700 Balance 1070 -300 Lab Results Last 24 Hours: Laboratory Results - last 24 hr 06/15/20 06/15/20 Range/Units 04:56 04:56 WBC 16.48 H (4.23-9.07) K/mm3 RBC 3.98 L (4.63-6.08) M/mm3 Hgb 11.3 L (13.7-17.5) gm/dl Hct 34.1 L (40.1-51.0) % MCV 85.7 (79.0-92.2) fl MCH 28.4 (25.7-32.2) pg MCHC 33.1 (32.2-35.5) g/dl RDW Std Deviation 44.3 H (35.1-43.9) fL Plt Count 541 H (163-337) K/mm3 MPV 10.0 (9.4-12.3) fl Neut % (Auto) 90.3 H (34.0-67.9) % Lymph % (Auto) 4.8 L (21.8-53.1) % [place] % (Auto) 4.4 L (5.3-12.2) % Eos % (Auto) 0 L (0.8-7.0) Baso % (Auto) 0.1 (0.1-1.2) % Neut # (Auto) 14.87 H (1.78-5.38) K/mm3 Lymph # (Auto) 0.79 L (1.32-3.57) K/mm3 [place] # (Auto) 0.73 (0.30-0.82) K/mm3 Eos # (Auto) 0.00 L (0.04-0.54) K/mm3 Baso # (Auto) 0.02 (0.01-0.08) K/mm3 Sodium 140 (136-145) mEq/L Potassium 3.9 (3.5-5.1) mEq/L Chloride 107 (98-107) mEq/L Carbon Dioxide 23 (21-32) mEq/L Anion Gap 13.9 (5-15) BUN 24 H (7-18) mg/dL Creatinine 0.9 (0.7-1.3) mg/dL Est Cr Clr Drug Dosing 96.45 mL/min Estimated GFR (MDRD) > 60 (>60) mL/min BUN/Creatinine Ratio 26.7 H (14-18) Glucose 156 H (74-106) mg/dL Calcium 7.6 L (8.5-10.1) mg/dL Magnesium 2.3 (1.8-2.4) mg/dl Total Bilirubin 0.4 (0.2-1.0) mg/dL AST 31 (15-37) U/L ALT 57 (16-63) U/L Alkaline Phosphatase 69 (46-116) U/L C-Reactive Protein 2.3 H* (<1.0) mg/dL Total Protein 5.7 L (6.4-8.2) g/dl Albumin 2.0 L (3.4-5.0) g/dl Globulin 3.7 gm/dL Albumin/Globulin Ratio 0.5 L (1-2) Joaquim Results Last 24 Hours: Microbiology 06/10/20 10:13 Aerobic Blood Culture - Preliminary Blood - Venous NO GROWTH AFTER 4 DAYS Anaerobic Blood Culture - Preliminary NO GROWTH AFTER 4 DAYS 06/10/20 10:20 Aerobic Blood Culture - Preliminary Blood - Venous - Lab Draw NO GROWTH AFTER 4 DAYS Anaerobic Blood Culture - Preliminary NO GROWTH AFTER 4 DAYS Med Orders - Current: Current Medications Acetaminophen (Acetaminophen 325 Mg Tab) 650 mg PO Q4H PRN PRN Reason: Pain (Mild 1-3)/fever Last Admin: 06/11/20 20:57 Dose: 650 mg Documented by: Albuterol/Ipratropium (Albuterol/Ipratropium 3.0-0.5 Mg/3 Ml Neb Soln) 3 ml NEB Q4H PRN PRN Reason: Shortness Of Breath/wheezing Aspirin (Aspirin 325 Mg Tab.Ec) 325 mg PO DAILY [facility] Last Admin: 06/14/20 09:06 Dose: 325 mg Documented by: Atorvastatin Calcium (Atorvastatin 20 Mg Tab) 20 mg PO DAILY [facility] Last Admin: 06/14/20 09:06 Dose: 20 mg Documented by: Benzonatate (Benzonatate 100 Mg Cap) 100 mg PO TID [facility] Last Admin: 06/14/20 20:17 Dose: 100 mg Documented by: Cholecalciferol (Cholecalciferol (Vitamin D3) 5,000 Unit Cap) 5,000 unit PO DAILY [facility] Last Admin: 06/14/20 09:07 Dose: 5,000 unit Documented by: Citalopram Hydrobromide (Citalopram 20 Mg Tab) 40 mg PO DAILY [facility] Last Admin: 06/14/20 09:06 Dose: 40 mg Documented by: Docusate Sodium (Docusate Sodium 100 Mg Cap) 100 mg PO BID PRN PRN Reason: Constipation Enoxaparin Sodium (Enoxaparin 40 Mg/0.4 Ml Syringe) 40 mg SUBCUT Q12H [facility] Last Admin: 06/14/20 20:17 Dose: 40 mg Documented by: Famotidine (Famotidine 20 Mg Tab) 20 mg PO BID [facility] Last Admin: 06/14/20 20:17 Dose: 20 mg Documented by: Fluticasone Propionate (Fluticasone Propionate Nasal [place] 16 Gm Bottle) 0 gm NASBOTH DAILY [facility] Last Admin: 06/14/20 09:06 Dose: 1 spray Documented by: Guaifenesin/Phenylephrine HCl (Guaifenesin/Dextromethorphan 100-10 Mg/5 Ml Soln 5 Ml Cup) 10 ml PO QID PRN PRN Reason: Cough Last Admin: 06/13/20 05:00 Dose: 10 ml Documented by: Melatonin (Melatonin 3 Mg Tab) 9 mg PO BEDTIME [facility] Last Admin: 06/14/20 20:17 Dose: 9 mg Documented by: Ondansetron HCl (Ondansetron 4 Mg Tab.Dis) 4 mg PO Q4H PRN PRN Reason: nausea, able to take PO Oxycodone HCl (Oxycodone 5 Mg Tab) 5 mg PO Q4H PRN PRN Reason: Pain (moderate 4-6) Sodium Chloride (Sodium Chloride 0.9% 10 Ml Syringe) 10 ml FLUSH ASDIRECTED PRN PRN Reason: Keep Vein Open Last Admin: 06/11/20 11:17 Dose: 10 ml Documented by: Tamsulosin HCl (Tamsulosin 0.4 Mg Cap.Er) 0.8 mg PO DAILY [facility] Last Admin: 06/14/20 09:06 Dose: 0.8 mg Documented by: Temazepam (Temazepam 15 Mg Cap) 15 mg PO BEDTIME PRN PRN Reason: Sleep Zinc Sulfate (Zinc Sulfate 220 Mg Cap) 220 mg PO DAILY [facility] Last Admin: 06/14/20 09:07 Dose: 220 mg Documented by: Discontinued Medications Aspirin (Aspirin 81 Mg Tab.Ec) 81 mg PO DAILY [facility] Last Admin: 06/12/20 09:00 Dose: 81 mg Documented by: Dexamethasone (Dexamethasone 10 Mg/Ml Sdv) 6 mg IVPUSH ONETIME ONE Stop: 06/10/20 10:26 Last Admin: 06/10/20 10:52 Dose: 6 mg Documented by: Dexamethasone (Dexamethasone 4 Mg Tab) 6 mg PO BID [facility] Last Admin: 06/14/20 20:17 Dose: 6 mg Documented by: Enoxaparin Sodium (Enoxaparin 40 Mg/0.4 Ml Syringe) 40 mg SUBCUT DAILY [facility] Last Admin: 06/13/20 09:10 Dose: 40 mg Documented by: Dextrose/Sodium Chloride (Dextrose 5%-Normal Saline) 1,000 mls @ 100 mls/hr IV ASDIRECTED [facility] Last Admin: 06/10/20 10:19 Dose: 100 mls/hr Documented by: Potassium Chloride 10 meq/ (Premix) 100 mls @ 100 mls/hr IV Q1H [facility] Stop: 06/10/20 14:29 Last Admin: 06/10/20 17:27 Dose: 100 mls/hr Documented by: Sodium Chloride (Normal Saline) 1,000 mls @ 50 mls/hr IV ASDIRECTED [facility] Last Admin: 06/11/20 20:57 Dose: 50 mls/hr Documented by: Ceftriaxone Sodium 2 gm/ (Sodium Chloride) 100 mls @ 200 mls/hr IV Q24H [facility] Stop: 06/14/20 13:29 Last Admin: 06/14/20 13:06 Dose: 200 mls/hr Documented by: Sodium Chloride (Normal Saline) 100 mls @ 60 mls/hr IV ASDIRECTED [facility] Stop: 06/11/20 15:00 Last Admin: 06/11/20 11:17 Dose: 60 mls/hr Documented by: Tocilizumab 600 mg/ Sodium (Chloride) 100 mls @ 100 mls/hr IV ONETIME ONE Stop: 06/13/20 11:59 Last Admin: 06/13/20 10:58 Dose: 100 mls/hr Documented by: Ibuprofen (Ibuprofen 600 Mg Tab) 600 mg PO ONETIME ONE Stop: 06/10/20 10:35 Last Admin: 06/10/20 10:51 Dose: 600 mg Documented by: Iopamidol (Iopamidol 755 Mg/Ml 100 Ml Bottle) 100 ml IVPUSH ONETIME ONE Stop: 06/11/20 11:11 Last Admin: 06/11/20 11:17 Dose: 100 ml Documented by: Morphine Sulfate (Morphine 2 Mg/Ml Syringe) 2 mg IVPUSH Q2H PRN PRN Reason: Pain (severe 7-10) Stop: 06/11/20 12:02 Sodium Chloride (Sodium Chloride 0.9% 10 Ml Syringe) 10 ml FLUSH ONETIME ONE Stop: 06/11/20 12:01 Last Admin: 06/11/20 12:40 Dose: 10 ml Documented by: - Exam Quality Assessment: Supplemental Oxygen (40L and 35% ), DVT Prophylaxis General: Alert, Oriented, Cooperative, No Acute Distress HEENT: Pupils Equal, Pupils Reactive, Mucous Membr. Moist/[place] Neck: Supple, Trachea Midline Lungs: Normal Respiratory Effort, Decreased Breath Sounds. No: Crackles, Rhonchi, Wheezing Cardiovascular: Regular Rate, Regular Rhythm GI/Abdominal Exam: Normal Bowel Sounds, Soft, Non-Tender, No Distention (Male) Exam: Deferred Back Exam: Normal Inspection, Full Range of Motion Extremities: Normal Inspection, Normal Range of Motion, Non-Tender, No Pedal Edema, Normal Capillary Refill Peripheral Pulses: 3+: Radial (L), Radial (R), Dorsalis Pedis (L), Dorsalis Pedis (R) Skin: Warm, Dry, Intact Neurological: No New Focal Deficit Psy/Mental Status: Alert, Normal Affect, Anxious - Patient Data Lab Results Last 24 hrs: Laboratory Results - last 24 hr 06/15/20 06/15/20 Range/Units 04:56 04:56 WBC 16.48 H (4.23-9.07) K/mm3 RBC 3.98 L (4.63-6.08) M/mm3 Hgb 11.3 L (13.7-17.5) gm/dl Hct 34.1 L (40.1-51.0) % MCV 85.7 (79.0-92.2) fl MCH 28.4 (25.7-32.2) pg MCHC 33.1 (32.2-35.5) g/dl RDW Std Deviation 44.3 H (35.1-43.9) fL Plt Count 541 H (163-337) K/mm3 MPV 10.0 (9.4-12.3) fl Neut % (Auto) 90.3 H (34.0-67.9) % Lymph % (Auto) 4.8 L (21.8-53.1) % [place] % (Auto) 4.4 L (5.3-12.2) % Eos % (Auto) 0 L (0.8-7.0) Baso % (Auto) 0.1 (0.1-1.2) % Neut # (Auto) 14.87 H (1.78-5.38) K/mm3 Lymph # (Auto) 0.79 L (1.32-3.57) K/mm3 [place] # (Auto) 0.73 (0.30-0.82) K/mm3 Eos # (Auto) 0.00 L (0.04-0.54) K/mm3 Baso # (Auto) 0.02 (0.01-0.08) K/mm3 Sodium 140 (136-145) mEq/L Potassium 3.9 (3.5-5.1) mEq/L Chloride 107 (98-107) mEq/L Carbon Dioxide 23 (21-32) mEq/L Anion Gap 13.9 (5-15) BUN 24 H (7-18) mg/dL Creatinine 0.9 (0.7-1.3) mg/dL Est Cr Clr Drug Dosing 96.45 mL/min Estimated GFR (MDRD) > 60 (>60) mL/min BUN/Creatinine Ratio 26.7 H (14-18) Glucose 156 H (74-106) mg/dL Calcium 7.6 L (8.5-10.1) mg/dL Magnesium 2.3 (1.8-2.4) mg/dl Total Bilirubin 0.4 (0.2-1.0) mg/dL AST 31 (15-37) U/L ALT 57 (16-63) U/L Alkaline Phosphatase 69 (46-116) U/L C-Reactive Protein 2.3 H* (<1.0) mg/dL Total Protein 5.7 L (6.4-8.2) g/dl Albumin 2.0 L (3.4-5.0) g/dl Globulin 3.7 gm/dL Albumin/Globulin Ratio 0.5 L (1-2) Result Diagrams: 06/15/20 04:56 06/15/20 04:56 Joaquim Results Last 24 hrs: Microbiology 06/10/20 10:13 Aerobic Blood Culture - Preliminary Blood - Venous NO GROWTH AFTER 4 DAYS Anaerobic Blood Culture - Preliminary NO GROWTH AFTER 4 DAYS 06/10/20 10:20 Aerobic Blood Culture - Preliminary Blood - Venous - Lab Draw NO GROWTH AFTER 4 DAYS Anaerobic Blood Culture - Preliminary NO GROWTH AFTER 4 DAYS Sepsis Event Note - Evaluation Sepsis Screening Result: No Definite Risk - Focused Exam Vital Signs: Vital Signs Temp Pulse Resp BP Pulse Ox Pulse Ox 06/15/20 05:20 94 L 06/15/20 04:37 97.9 F 94 117/55 L 88 L 06/15/20 02:20 94 L 06/14/20 20:45 94 L 06/14/20 19:41 98.8 F 77 14 112/66 94 L - Problem List & Annotations (1) Acute respiratory failure SNOMED Code(s): 28140816 Code(s): J96.00 - ACUTE RESPIRATORY FAILURE, UNSP W HYPOXIA OR HYPERCAPNIA Status: Acute Priority: High Current Visit: Yes Qualifiers: Respiratory failure complication: hypoxia Qualified Code(s): J96.01 - Acute respiratory failure with hypoxia (2) COVID-19 determined by clinical diagnostic criteria SNOMED Code(s): 773641616, 379858864 Code(s): U07.1 - COVID-19 Status: Acute Priority: High Current Visit: Y es (3) Hypoxia SNOMED Code(s): 548631877 Code(s): R09.02 - HYPOXEMIA Status: Acute Priority: High Current Visit: Yes (4) Bradycardia SNOMED Code(s): 43593769 Code(s): R00.1 - BRADYCARDIA, UNSPECIFIED Status: Acute Priority: High Current Visit: Yes (5) Hypokalemia SNOMED Code(s): 46190278 Code(s): E87.6 - HYPOKALEMIA Status: Resolved Priority: High Current V isit: Yes (6) Elevated d-dimer SNOMED Code(s): 317457519 Code(s): R79.89 - OTHER SPECIFIED ABNORMAL FINDINGS OF BLOOD CHEMISTRY Status: Acute Priority: High Current Visit: Yes - Problem List Review Problem List Initiated/Reviewed/Updated: Yes - My Orders Last 24 Hours: My Active Orders 06/14/20 09:00 Enoxaparin [Lovenox] 40 mg SUBCUT Q12H 06/14/20 Lunch Consistent Carbohydrate Diet [DIET] 06/15/20 04:56 CBC WITH AUTO DIFF [HEME] AM 06/15/20 07:23 DD [D-DIMER QUANTITATIVE] [COAG] Routine 06/15/20 09:00 dexAMETHasone 6 mg PO DAILY 06/16/20 05:11 CBC WITH AUTO DIFF [HEME] AM CMP [COMPREHENSIVE METABOLIC PN,CMP] [CHEM] AM CRP [C-REACTIVE PROTEIN] [CHEM] AM DD [D-DIMER QUANTITATIVE] [COAG] AM MAGNESIUM [CHEM] AM 06/17/20 05:11 DD [D-DIMER QUANTITATIVE] [COAG] AM 06/18/20 05:11 DD [D-DIMER QUANTITATIVE] [COAG] AM 06/19/20 05:11 DD [D-DIMER QUANTITATIVE] [COAG] AM - Assessment Assessment:: 06/11/20 * Patient is outside the window for safe use of remdesivir as well his he is also had transfusion of immunomodulators * Allergic to azithromycin * Rocephin 2gm IV q 24 hours day 04/30 to treat Covid pneumonia * ASA 81mg daily * Dexamethasone 6mg po bid * IV fluids at 50 mL/h * IS and acapella * RT to titrate O2 * Lovenox for DVT prophylaxis * O2 saturations decreased into the 80's on 1 liter. Pt O2 increased to 3l/nc LABS: WBC 8.97->10.20 HGB 11.2->11.8 HCT 33.8->36.4 PLT 351->441 Neut% 86.3->85.7 Ddimer 1.07->2.27 K+ 3.2->3.8 Anion Gap 14.2->16.8 BUN 22->19 Cre 1.1->1.1 GFR >60 Gluc 115->142 Ca 8.2->8.1 LDH 347->346 Trop <0.017 CRP 23.3->17.8 ProBNP [address] of the chest: 1. No findings of pulmonary embolism 2. Diffuse parenchymal changes seen within both lungs compatible with so-called COVID-19 pneumonia. 3. No other acute abnormality is appreciated. 06/12/2020: * Patient has worsening respiratory status and is up to 6 L currently * Patient has not been proning or using his IS/acapella very much. We discussed this. * Increase aspirin to 325 daily. * Discontinue IV fluids. * Start 5000 unit vitamin D on 220 mg zinc supplementation. * Start Pepcid twice daily 20 mg for GI prophylaxis due to significant steroid * Continue current treatment plan. * Recheck labs tomorrow and D-dimer every 48. * Labs today: * WBC 14.74. * Hemoglobin of 10.5. * Neutrophils elevated 91.4%. * D-dimer 1.78. * Sodium 146. * Potassium 4.6. * Anion gap 14.2. * GFR greater than 60. * Glucose 167. * Hemoglobin A1c 6.4. * Bilirubin 0.3. * AST 31, ALT 10, alkaline phosphatase 67. * LDH 335. * CRP 7.6. * Albumin 1.9. * Blood cultures remain negative * Should patient continue to have decreasing saturations we will change to high flow O2. 06/13/2020: * Continues to have worsening respiratory status and difficulty recovering after activity. * Switched to high flow oxygen 50 L at 45%. * Given worsening respiratory status decision made to give patient Actemra * Recheck labs tomorrow, including D-dimer. * On high flow oxygen saturation in mid to upper 90s. * Labs today: * WBC 17.99. * Hemoglobin 11.1. * Platelet 510,000. * Sodium 147. * Anion gap 16.0. * BUN 21. Creatinine 1.0. GFR greater than 60. * Glucose 153. * Calcium 8.0. * CRP 4.8. * Albumin 2.0. * Consider decreasing steroid to once daily once patient stabilizes. * Given patient's prior bradycardia episode will order echocardiogram for tomorrow morning as this service is not available on weekends. * Consider upgrading patient to ICU status if respiratory status does not stabilize. 06/14/2020: * Is on high flow although improved to 40 L at 45%. * Reports he feels better today and clinically looks better today * D-dimer today is elevated substantially and due to this we will increase Lovenox to 40 mg twice daily * Consider repeat angiogram pending D-dimer results tomorrow. * Echocardiogram today * Labs today: * WBC 15.79. * Hemoglobin 11.2. * Platelet 544,000. * Neutrophils elevated at 90.6%. * D-dimer elevated at 5.98. * Sodium 142. * Potassium 4.0. * Anion gap 17.0. * BUN 24. Creatinine 1.0. GFR greater than 60. * CRP 4.5. * Albumin 2.0. * Continue current treatment plan. 06/15/2020: * Labs today: * WBC 16.48. * Hemoglobin 11.3. * Neutrophils elevated 90.3%. * D-dimer 5.60. * Sodium 140. * Potassium 3.9. * Anion gap 13.9. * BUN is 24. Creatinine 0.9. GFR greater than 60. * Glucose 156. * CRP 2.3. * Albumin 2.0. * On 40 L with FiO2 of 35%. * Trial nasal cannula today, unfortunately patient saturations dropped and he was placed back on high flow. * D-dimer has improved, CRP continues to trend downward. * Reports he feels pretty good * Clinically looks improved and tolerance with activity is improving. * Echocardiogram obtained on 06/14/2020: * 1. Left ventricular ejection fraction, by visual estimation, is 60 to 65%. * 2. Normal right ventricular size, wall thickness, and systolic function. * 3. Aortic valve is structurally normal and tricuspid. * 4. Trace mitral valve regurgitation. * 5. Trace tricuspid valve regurgitation. * 6. No regional wall motion abnormalities * Continue current treatment plan. - Plan Plan:: Acute respiratory failure COVID-19 determined by clinical diagnostic criteria Pneumonia due to COVID-19 virus Bradycardia, resolved Elevated D-dimer * O2 titrate to keep sats 88-96% * RT to continue with IS and acapella * Continue Rocephin IV 2gm - day 06/30 * Pt is out of the window for Remdesivir and has had monoclonal antibodies * Repeat labs in the AM, D-Dimer Q48h * Encourage prone positioning * Encourage ambulation in the room when awake * Continue dexamethasone - decrease to daily today * Albuterol inhaler prn * Monitor blood sugars * Telemetry and continuous pulse oximetry * Start zinc and vitamin D supplementation * Melatonin at bedtime * Increase ASA to 325mg daily * Highflow O2 as directed * O2 goal saturations of 88-96% * Airborne/contact precautions * Actemra given * Lovenox 40mg BID due to elevated D-dimer * Consider repeat angiogram PCP: Liberty Palmer PA-C Code Status: Full code DVT prophylaxis: Lovenox and ASA GI prophylaxis: BID Pepcid Disposition: Patient admitted to the medical floor on telemetry for management of COVID-19 symptoms. LOS >96 HRS due to slow response to COVID-19 treatment
[2020-06-15] MEDS: Zinc Sulfate 220 MG Cap PO SCH (09:06)
[2020-06-15] MEDS: Benzonatate 100 MG Cap PO SCH ×3 (09:06→20:51)
[2020-06-15] MEDS: Fluticasone Propionate Nasal Spray 16 GM Bottle NASBOTH SCH (09:07)
[2020-06-15] MEDS: Dexamethasone 4 MG Tab PO SCH (09:07)
[2020-06-15] MEDS: Famotidine 20 MG Tab PO SCH ×2 (09:08→20:51)
[2020-06-15] MEDS: Tamsulosin 0.4 MG Cap.ER PO SCH (09:08)
[2020-06-15] MEDS: Cholecalciferol (Vitamin D3) 5,000 UNIT Cap PO SCH (09:08)
[2020-06-15] MEDS: Aspirin 325 MG Tab.EC PO SCH (09:08)
[2020-06-15] MEDS: Citalopram 20 MG Tab PO SCH (09:09)
[2020-06-15] MEDS: atorvaSTATin 20 MG Tab PO SCH (09:09)
[2020-06-15] MEDS: Enoxaparin 40 MG/0.4 ML Syringe SUBCUT SCH ×2 (09:09→20:51)
[2020-06-15] MEDS: Melatonin 3 MG Tab PO SCH (20:51)
--- NOTE | 2020-06-16 07:13 | PCM.PN ---
- General Info Date of Service: 06/16/20 Admission Dx/Problem (Free Text): Admission Diagnosis/Problem Admission Diagnosis/Problem Viral pneumonia Functional Status: Reports: Pain Controlled, Tolerating Diet, Ambulating, Urinating, Incentive Spirometry, Other (Acapella ). Denies: New Symptoms - Review of Systems General: Reports: No Symptoms. Denies: Fever, Weakness, Fatigue, Malaise HEENT: Reports: No Symptoms. Denies: Headaches Pulmonary: Reports: Shortness of Breath, Cough, Sputum. Denies: Pleuritic Chest Pain, Wheezing Cardiovascular: Reports: No Symptoms, Dyspnea on Exertion. Denies: Chest Pain, Palpitations Gastrointestinal: Reports: No Symptoms. Denies: Abdominal Pain, Constipation, Diarrhea, Nausea, Vomiting Genitourinary: Reports: No Symptoms. Denies: Pain Musculoskeletal: Reports: No Symptoms Skin: Reports: No Symptoms. Denies: Cyanosis Neurological: Reports: No Symptoms. Denies: Confusion, Numbness, Pre-Existing Deficit, Tingling, Trouble Speaking, Difficulty Walking, Weakness, Gait Disturbance Psychiatric: Reports: No Symptoms - Patient Data Vitals - Most Recent: Last Vital Signs Temp 98.1 F 06/16/20 02:43 Pulse 63 06/16/20 02:43 Resp 20 06/16/20 02:43 BP 110/65 06/16/20 02:43 Pulse Ox 94 L 06/16/20 05:22 Weight - Most Recent: 173 lb 3.2 oz I&O - Last 24 Hours: Intake & Output 06/15/20 06/16/20 06/16/20 22:59 06:59 14:59 Intake Total 800 600 Output Total 650 Balance 800 -50 Lab Results Last 24 Hours: Laboratory Results - last 24 hr 06/15/20 06/15/20 06/16/20 Range/Units 04:56 04:56 04:49 WBC 13.41 H (4.23-9.07) K/mm3 RBC 3.84 L (4.63-6.08) M/mm3 Hgb 11.1 L (13.7-17.5) gm/dl Hct 33.2 L (40.1-51.0) % MCV 86.5 (79.0-92.2) fl MCH 28.9 (25.7-32.2) pg MCHC 33.4 (32.2-35.5) g/dl RDW Std Deviation 44.7 H (35.1-43.9) fL Plt Count 508 H (163-337) K/mm3 MPV 10.1 (9.4-12.3) fl Neut % (Auto) 80.0 H (34.0-67.9) % Lymph % (Auto) 10.3 L (21.8-53.1) % [place] % (Auto) 8.8 (5.3-12.2) % Eos % (Auto) 0.4 L (0.8-7.0) Baso % (Auto) 0.1 (0.1-1.2) % Neut # (Auto) 10.73 H (1.78-5.38) K/mm3 Lymph # (Auto) 1.38 (1.32-3.57) K/mm3 [place] # (Auto) 1.18 H (0.30-0.82) K/mm3 Eos # (Auto) 0.05 (0.04-0.54) K/mm3 Baso # (Auto) 0.01 (0.01-0.08) K/mm3 Manual Slide Review Abnormal smear Abnormal smear D-Dimer, Quantitative 5.60 H (0.19-0.50) mg/L Sodium (136-145) mEq/L Potassium (3.5-5.1) mEq/L Chloride (98-107) mEq/L Carbon Dioxide (21-32) mEq/L Anion Gap (5-15) BUN (7-18) mg/dL Creatinine (0.7-1.3) mg/dL Est Cr Clr Drug Dosing mL/min Estimated GFR (MDRD) (>60) mL/min BUN/Creatinine Ratio (14-18) Glucose (74-106) mg/dL Calcium (8.5-10.1) mg/dL Magnesium (1.8-2.4) mg/dl Total Bilirubin (0.2-1.0) mg/dL AST (15-37) U/L ALT (16-63) U/L Alkaline Phosphatase (46-116) U/L C-Reactive Protein (<1.0) mg/dL Total Protein (6.4-8.2) g/dl Albumin (3.4-5.0) g/dl Globulin gm/dL Albumin/Globulin Ratio (1-2) 06/16/20 06/16/20 Range/Units 04:49 04:49 WBC (4.23-9.07) K/mm3 RBC (4.63-6.08) M/mm3 Hgb (13.7-17.5) gm/dl Hct (40.1-51.0) % MCV (79.0-92.2) fl MCH (25.7-32.2) pg MCHC (32.2-35.5) g/dl RDW Std Deviation (35.1-43.9) fL Plt Count (163-337) K/mm3 MPV (9.4-12.3) fl Neut % (Auto) (34.0-67.9) % Lymph % (Auto) (21.8-53.1) % [place] % (Auto) (5.3-12.2) % Eos % (Auto) (0.8-7.0) Baso % (Auto) (0.1-1.2) % Neut # (Auto) (1.78-5.38) K/mm3 Lymph # (Auto) (1.32-3.57) K/mm3 [place] # (Auto) (0.30-0.82) K/mm3 Eos # (Auto) (0.04-0.54) K/mm3 Baso # (Auto) (0.01-0.08) K/mm3 Manual Slide Review D-Dimer, Quantitative 8.75 H (0.19-0.50) mg/L Sodium 139 (136-145) mEq/L Potassium 3.7 (3.5-5.1) mEq/L Chloride 106 (98-107) mEq/L Carbon Dioxide 23 (21-32) mEq/L Anion Gap 13.7 (5-15) BUN 27 H (7-18) mg/dL Creatinine 0.9 (0.7-1.3) mg/dL Est Cr Clr Drug Dosing 96.45 mL/min Estimated GFR (MDRD) > 60 (>60) mL/min BUN/Creatinine Ratio 30.0 H (14-18) Glucose 112 H (74-106) mg/dL Calcium 7.1 L (8.5-10.1) mg/dL Magnesium 2.3 (1.8-2.4) mg/dl Total Bilirubin 0.4 (0.2-1.0) mg/dL AST 27 (15-37) U/L ALT 52 (16-63) U/L Alkaline Phosphatase 61 (46-116) U/L C-Reactive Protein 1.0 (<1.0) mg/dL Total Protein 5.2 L (6.4-8.2) g/dl Albumin 1.9 L (3.4-5.0) g/dl Globulin 3.3 gm/dL Albumin/Globulin Ratio 0.6 L (1-2) Joaquim Results Last 24 Hours: Microbiology 06/10/20 10:13 Aerobic Blood Culture - Preliminary Blood - Venous NO GROWTH AFTER 5 DAYS Anaerobic Blood Culture - Preliminary NO GROWTH AFTER 5 DAYS 06/10/20 10:20 Aerobic Blood Culture - Preliminary Blood - Venous - Lab Draw NO GROWTH AFTER 5 DAYS Anaerobic Blood Culture - Preliminary NO GROWTH AFTER 5 DAYS Med Orders - Current: Current Medications Acetaminophen (Acetaminophen 325 Mg Tab) 650 mg PO Q4H PRN PRN Reason: Pain (Mild 1-3)/fever Last Admin: 06/11/20 20:57 Dose: 650 mg Documented by: Albuterol/Ipratropium (Albuterol/Ipratropium 3.0-0.5 Mg/3 Ml Neb Soln) 3 ml NEB Q4H PRN PRN Reason: Shortness Of Breath/wheezing Aspirin (Aspirin 325 Mg Tab.Ec) 325 mg PO DAILY [facility] Last Admin: 06/15/20 09:08 Dose: 325 mg Documented by: Atorvastatin Calcium (Atorvastatin 20 Mg Tab) 20 mg PO DAILY [facility] Last Admin: 06/15/20 09:09 Dose: 20 mg Documented by: Benzonatate (Benzonatate 100 Mg Cap) 100 mg PO TID [facility] Last Admin: 06/15/20 20:51 Dose: 100 mg Documented by: Cholecalciferol (Cholecalciferol (Vitamin D3) 5,000 Unit Cap) 5,000 unit PO DAILY [facility] Last Admin: 06/15/20 09:08 Dose: 5,000 unit Documented by: Citalopram Hydrobromide (Citalopram 20 Mg Tab) 40 mg PO DAILY [facility] Last Admin: 06/15/20 09:09 Dose: 40 mg Documented by: Dexamethasone (Dexamethasone 4 Mg Tab) 6 mg PO DAILY [facility] Stop: 06/19/20 09:01 Last Admin: 06/15/20 09:07 Dose: 6 mg Documented by: Docusate Sodium (Docusate Sodium 100 Mg Cap) 100 mg PO BID PRN PRN Reason: Constipation Enoxaparin Sodium (Enoxaparin 40 Mg/0.4 Ml Syringe) 40 mg SUBCUT Q12H [facility] Last Admin: 06/15/20 20:51 Dose: 40 mg Documented by: Famotidine (Famotidine 20 Mg Tab) 20 mg PO BID [facility] Last Admin: 06/15/20 20:51 Dose: 20 mg Documented by: Fluticasone Propionate (Fluticasone Propionate Nasal [place] 16 Gm Bottle) 0 gm NASBOTH DAILY [facility] Last Admin: 06/15/20 09:07 Dose: 2 spray Documented by: Guaifenesin/Phenylephrine HCl (Guaifenesin/Dextromethorphan 100-10 Mg/5 Ml Soln 5 Ml Cup) 10 ml PO QID PRN PRN Reason: Cough Last Admin: 06/13/20 05:00 Dose: 10 ml Documented by: Melatonin (Melatonin 3 Mg Tab) 9 mg PO BEDTIME [facility] Last Admin: 06/15/20 20:51 Dose: 9 mg Documented by: Ondansetron HCl (Ondansetron 4 Mg Tab.Dis) 4 mg PO Q4H PRN PRN Reason: nausea, able to take PO Oxycodone HCl (Oxycodone 5 Mg Tab) 5 mg PO Q4H PRN PRN Reason: Pain (moderate 4-6) Sodium Chloride (Sodium Chloride 0.9% 10 Ml Syringe) 10 ml FLUSH ASDIRECTED PRN PRN Reason: Keep Vein Open Last Admin: 06/11/20 11:17 Dose: 10 ml Documented by: Tamsulosin HCl (Tamsulosin 0.4 Mg Cap.Er) 0.8 mg PO DAILY [facility] Last Admin: 06/15/20 09:08 Dose: 0.8 mg Documented by: Temazepam (Temazepam 15 Mg Cap) 15 mg PO BEDTIME PRN PRN Reason: Sleep Zinc Sulfate (Zinc Sulfate 220 Mg Cap) 220 mg PO DAILY [facility] Last Admin: 06/15/20 09:06 Dose: 220 mg Documented by: Discontinued Medications Aspirin (Aspirin 81 Mg Tab.Ec) 81 mg PO DAILY [facility] Last Admin: 06/12/20 09:00 Dose: 81 mg Documented by: Dexamethasone (Dexamethasone 10 Mg/Ml Sdv) 6 mg IVPUSH ONETIME ONE Stop: 06/10/20 10:26 Last Admin: 06/10/20 10:52 Dose: 6 mg Documented by: Dexamethasone (Dexamethasone 4 Mg Tab) 6 mg PO BID [facility] Last Admin: 06/14/20 20:17 Dose: 6 mg Documented by: Enoxaparin Sodium (Enoxaparin 40 Mg/0.4 Ml Syringe) 40 mg SUBCUT DAILY [facility] Last Admin: 06/13/20 09:10 Dose: 40 mg Documented by: Dextrose/Sodium Chloride (Dextrose 5%-Normal Saline) 1,000 mls @ 100 mls/hr IV ASDIRECTED [facility] Last Admin: 06/10/20 10:19 Dose: 100 mls/hr Documented by: Potassium Chloride 10 meq/ (Premix) 100 mls @ 100 mls/hr IV Q1H [facility] Stop: 06/10/20 14:29 Last Admin: 06/10/20 17:27 Dose: 100 mls/hr Documented by: Sodium Chloride (Normal Saline) 1,000 mls @ 50 mls/hr IV ASDIRECTED [facility] Last Admin: 06/11/20 20:57 Dose: 50 mls/hr Documented by: Ceftriaxone Sodium 2 gm/ (Sodium Chloride) 100 mls @ 200 mls/hr IV Q24H [facility] Stop: 06/14/20 13:29 Last Admin: 06/14/20 13:06 Dose: 200 mls/hr Documented by: Sodium Chloride (Normal Saline) 100 mls @ 60 mls/hr IV ASDIRECTED [facility] Stop: 06/11/20 15:00 Last Admin: 06/11/20 11:17 Dose: 60 mls/hr Documented by: Tocilizumab 600 mg/ Sodium (Chloride) 100 mls @ 100 mls/hr IV ONETIME ONE Stop: 06/13/20 11:59 Last Admin: 06/13/20 10:58 Dose: 100 mls/hr Documented by: Ibuprofen (Ibuprofen 600 Mg Tab) 600 mg PO ONETIME ONE Stop: 06/10/20 10:35 Last Admin: 06/10/20 10:51 Dose: 600 mg Documented by: Iopamidol (Iopamidol 755 Mg/Ml 100 Ml Bottle) 100 ml IVPUSH ONETIME ONE Stop: 06/11/20 11:11 Last Admin: 06/11/20 11:17 Dose: 100 ml Documented by: Morphine Sulfate (Morphine 2 Mg/Ml Syringe) 2 mg IVPUSH Q2H PRN PRN Reason: Pain (severe 7-10) Stop: 06/11/20 12:02 Sodium Chloride (Sodium Chloride 0.9% 10 Ml Syringe) 10 ml FLUSH ONETIME ONE Stop: 06/11/20 12:01 Last Admin: 06/11/20 12:40 Dose: 10 ml Documented by: - Exam Quality Assessment: Supplemental Oxygen (35L and 35%), DVT Prophylaxis General: Alert, Oriented, Cooperative, No Acute Distress HEENT: Pupils Equal, Pupils Reactive, Mucous Membr. Moist/[place] Neck: Supple, Trachea Midline Lungs: Normal Respiratory Effort, Decreased Breath Sounds. No: Crackles, Rhonchi, Wheezing Cardiovascular: Regular Rate, Regular Rhythm GI/Abdominal Exam: Normal Bowel Sounds, Soft, Non-Tender, No Distention (Male) Exam: Deferred Back Exam: Normal Inspection, Full Range of Motion Extremities: Normal Inspection, Normal Range of Motion, Non-Tender, No Pedal Edema Peripheral Pulses: 3+: Radial (L), Radial (R), Dorsalis Pedis (L), Dorsalis Pedis (R) Skin: Warm, Dry, Intact Neurological: No New Focal Deficit Psy/Mental Status: Alert, Normal Affect, Normal Mood - Patient Data Lab Results Last 24 hrs: Laboratory Results - last 24 hr 06/15/20 06/15/20 06/16/20 Range/Units 04:56 04:56 04:49 WBC 13.41 H (4.23-9.07) K/mm3 RBC 3.84 L (4.63-6.08) M/mm3 Hgb 11.1 L (13.7-17.5) gm/dl Hct 33.2 L (40.1-51.0) % MCV 86.5 (79.0-92.2) fl MCH 28.9 (25.7-32.2) pg MCHC 33.4 (32.2-35.5) g/dl RDW Std Deviation 44.7 H (35.1-43.9) fL Plt Count 508 H (163-337) K/mm3 MPV 10.1 (9.4-12.3) fl Neut % (Auto) 80.0 H (34.0-67.9) % Lymph % (Auto) 10.3 L (21.8-53.1) % [place] % (Auto) 8.8 (5.3-12.2) % Eos % (Auto) 0.4 L (0.8-7.0) Baso % (Auto) 0.1 (0.1-1.2) % Neut # (Auto) 10.73 H (1.78-5.38) K/mm3 Lymph # (Auto) 1.38 (1.32-3.57) K/mm3 [place] # (Auto) 1.18 H (0.30-0.82) K/mm3 Eos # (Auto) 0.05 (0.04-0.54) K/mm3 Baso # (Auto) 0.01 (0.01-0.08) K/mm3 Manual Slide Review Abnormal smear Abnormal smear D-Dimer, Quantitative 5.60 H (0.19-0.50) mg/L Sodium (136-145) mEq/L Potassium (3.5-5.1) mEq/L Chloride (98-107) mEq/L Carbon Dioxide (21-32) mEq/L Anion Gap (5-15) BUN (7-18) mg/dL Creatinine (0.7-1.3) mg/dL Est Cr Clr Drug Dosing mL/min Estimated GFR (MDRD) (>60) mL/min BUN/Creatinine Ratio (14-18) Glucose (74-106) mg/dL Calcium (8.5-10.1) mg/dL Magnesium (1.8-2.4) mg/dl Total Bilirubin (0.2-1.0) mg/dL AST (15-37) U/L ALT (16-63) U/L Alkaline Phosphatase (46-116) U/L C-Reactive Protein (<1.0) mg/dL Total Protein (6.4-8.2) g/dl Albumin (3.4-5.0) g/dl Globulin gm/dL Albumin/Globulin Ratio (1-2) 06/16/20 06/16/20 Range/Units 04:49 04:49 WBC (4.23-9.07) K/mm3 RBC (4.63-6.08) M/mm3 Hgb (13.7-17.5) gm/dl Hct (40.1-51.0) % MCV (79.0-92.2) fl MCH (25.7-32.2) pg MCHC (32.2-35.5) g/dl RDW Std Deviation (35.1-43.9) fL Plt Count (163-337) K/mm3 MPV (9.4-12.3) fl Neut % (Auto) (34.0-67.9) % Lymph % (Auto) (21.8-53.1) % [place] % (Auto) (5.3-12.2) % Eos % (Auto) (0.8-7.0) Baso % (Auto) (0.1-1.2) % Neut # (Auto) (1.78-5.38) K/mm3 Lymph # (Auto) (1.32-3.57) K/mm3 [place] # (Auto) (0.30-0.82) K/mm3 Eos # (Auto) (0.04-0.54) K/mm3 Baso # (Auto) (0.01-0.08) K/mm3 Manual Slide Review D-Dimer, Quantitative 8.75 H (0.19-0.50) mg/L Sodium 139 (136-145) mEq/L Potassium 3.7 (3.5-5.1) mEq/L Chloride 106 (98-107) mEq/L Carbon Dioxide 23 (21-32) mEq/L Anion Gap 13.7 (5-15) BUN 27 H (7-18) mg/dL Creatinine 0.9 (0.7-1.3) mg/dL Est Cr Clr Drug Dosing 96.45 mL/min Estimated GFR (MDRD) > 60 (>60) mL/min BUN/Creatinine Ratio 30.0 H (14-18) Glucose 112 H (74-106) mg/dL Calcium 7.1 L (8.5-10.1) mg/dL Magnesium 2.3 (1.8-2.4) mg/dl Total Bilirubin 0.4 (0.2-1.0) mg/dL AST 27 (15-37) U/L ALT 52 (16-63) U/L Alkaline Phosphatase 61 (46-116) U/L C-Reactive Protein 1.0 (<1.0) mg/dL Total Protein 5.2 L (6.4-8.2) g/dl Albumin 1.9 L (3.4-5.0) g/dl Globulin 3.3 gm/dL Albumin/Globulin Ratio 0.6 L (1-2) Result Diagrams: 06/16/20 04:49 06/16/20 04:49 Joaquim Results Last 24 hrs: Microbiology 06/10/20 10:13 Aerobic Blood Culture - Preliminary Blood - Venous NO GROWTH AFTER 5 DAYS Anaerobic Blood Culture - Preliminary NO GROWTH AFTER 5 DAYS 06/10/20 10:20 Aerobic Blood Culture - Preliminary Blood - Venous - Lab Draw NO GROWTH AFTER 5 DAYS Anaerobic Blood Culture - Preliminary NO GROWTH AFTER 5 DAYS Sepsis Event Note - Evaluation Sepsis Screening Result: No Definite Risk - Focused Exam Vital Signs: Vital Signs Temp Pulse Resp BP Pulse Ox Pulse Ox 06/16/20 05:22 94 L 06/16/20 02:43 98.1 F 63 20 110/65 91 L 06/15/20 20:56 98.1 F 84 20 111/51 L 90 L 06/15/20 20:30 91 L - Problem List & Annotations (1) Acute respiratory failure SNOMED Code(s): 25868478 Code(s): J96.00 - ACUTE RESPIRATORY FAILURE, UNSP W HYPOXIA OR HYPERCAPNIA Status: Acute Priority: High Current Visit: Yes Qualifiers: Respiratory failure complication: hypoxia Qualified Code(s): J96.01 - Acute respiratory failure with hypoxia (2) COVID-19 determined by clinical diagnostic criteria SNOMED Code(s): 412407213, 354758308 Code(s): U07.1 - COVID-19 Status: Acute Priority: High Current Visit: Yes (3) Hypoxia SNOMED Code(s): 166673819 Code(s): R09.02 - HYPOXEMIA Status: Acute Priority: High Current Visit: Yes (4) Bradycardia SNOMED Code(s): 37519450 Code(s): R00.1 - BRADYCARDIA, UNSPECIFIED Status: Acute Priority: High Current Visit: Yes (5) Hypokalemia SNOMED Code(s): 14482907 Code(s): E87.6 - HYPOKALEMIA Status: Resolved Priority: High Current Visit: Yes (6) Elevated d-dimer SNOMED Code(s): 886689911 Code(s): R79.89 - OTHER SPECIFIED ABNORMAL FINDINGS OF BLOOD CHEMISTRY Status: Acute Priority: High Current Visit: Yes - Problem List Review Problem List Initiated/Reviewed/Updated: Yes - My Orders Last 24 Hours: My Active Orders 06/15/20 09:00 dexAMETHasone 6 mg PO DAILY 06/17/20 05:11 DD [D-DIMER QUANTITATIVE] [COAG] AM 06/18/20 05:11 DD [D-DIMER QUANTITATIVE] [COAG] AM 06/19/20 05:11 DD [D-DIMER QUANTITATIVE] [COAG] AM - Assessment Assessment:: 06/11/20 * Patient is outside the window for safe use of remdesivir as well his he is also had transfusion of immunomodulators * Allergic to azithromycin * Rocephin 2gm IV q 24 hours day 04/30 to treat Covid pneumonia * ASA 81mg daily * Dexamethasone 6mg po bid * IV fluids at 50 mL/h * IS and acapella * RT to titrate O2 * Lovenox for DVT prophylaxis * O2 saturations decreased into the 80's on 1 liter. Pt O2 increased to 3l/nc LABS: WBC 8.97->10.20 HGB 11.2->11.8 HCT 33.8->36.4 PLT 351->441 Neut% 86.3->85.7 Ddimer 1.07->2.27 K+ 3.2->3.8 Anion Gap 14.2->16.8 BUN 22->19 Cre 1.1->1.1 GFR >60 Gluc 115->142 Ca 8.2->8.1 LDH 347->346 Trop <0.017 CRP 23.3->17.8 ProBNP [address] of the chest: 1. No findings of pulmonary embolism 2. Diffuse parenchymal changes seen within both lungs compatible with so-called COVID-19 pneumonia. 3. No other acute abnormality is appreciated. 06/12/2020: * Patient has worsening respiratory status and is up to 6 L currently * Patient has not been proning or using his IS/acapella very much. We discussed this. * Increase aspirin to 325 daily. * Discontinue IV fluids. * Start 5000 unit vitamin D on 220 mg zinc supplementation. * Start Pepcid twice daily 20 mg for GI prophylaxis due to significant steroid * Continue current treatment plan. * Recheck labs tomorrow and D-dimer every 48. * Labs today: * WBC 14.74. * Hemoglobin of 10.5. * Neutrophils elevated 91.4%. * D-dimer 1.78. * Sodium 146. * Potassium 4.6. * Anion gap 14.2. * GFR greater than 60. * Glucose 167. * Hemoglobin A1c 6.4. * Bilirubin 0.3. * AST 31, ALT 10, alkaline phosphatase 67. * LDH 335. * CRP 7.6. * Albumin 1.9. * Blood cultures remain negative * Should patient continue to have decreasing saturations we will change to high flow O2. 06/13/2020: * Continues to have worsening respiratory status and difficulty recovering after activity. * Switched to high flow oxygen 50 L at 45%. * Given worsening respiratory status decision made to give patient Actemra * Recheck labs tomorrow, including D-dimer. * On high flow oxygen saturation in mid to upper 90s. * Labs today: * WBC 17.99. * Hemoglobin 11.1. * Platelet 510,000. * Sodium 147. * Anion gap 16.0. * BUN 21. Creatinine 1.0. GFR greater than 60. * Glucose 153. * Calcium 8.0. * CRP 4.8. * Albumin 2.0. * Consider decreasing steroid to once daily once patient stabilizes. * Given patient's prior bradycardia episode will order echocardiogram for tomorrow morning as this service is not available on weekends. * Consider upgrading patient to ICU status if respiratory status does not stabilize. 06/14/2020: * Is on high flow although improved to 40 L at 45%. * Reports he feels better today and clinically looks better today * D-dimer today is elevated substantially and due to this we will increase Lovenox to 40 mg twice daily * Consider repeat angiogram pending D-dimer results tomorrow. * Echocardiogram today * Labs today: * WBC 15.79. * Hemoglobin 11.2. * Platelet 544,000. * Neutrophils elevated at 90.6%. * D-dimer elevated at 5.98. * Sodium 142. * Potassium 4.0. * Anion gap 17.0. * BUN 24. Creatinine 1.0. GFR greater than 60. * CRP 4.5. * Albumin 2.0. * Continue current treatment plan. 06/15/2020: * Labs today: * WBC 16.48. * Hemoglobin 11.3. * Neutrophils elevated 90.3%. * D-dimer 5.60. * Sodium 140. * Potassium 3.9. * Anion gap 13.9. * BUN is 24. Creatinine 0.9. GFR greater than 60. * Glucose 156. * CRP 2.3. * Albumin 2.0. * On 40 L with FiO2 of 35%. * Trial nasal cannula today, unfortunately patient saturations dropped and he was placed back on high flow. * D-dimer has improved, CRP continues to trend downward. * Reports he feels pretty good * Clinically looks improved and tolerance with activity is improving. * Echocardiogram obtained on 06/14/2020: * 1. Left ventricular ejection fraction, by visual estimation, is 60 to 65%. * 2. Normal right ventricular size, wall thickness, and systolic function. * 3. Aortic valve is structurally normal and tricuspid. * 4. Trace mitral valve regurgitation. * 5. Trace tricuspid valve regurgitation. * 6. No regional wall motion abnormalities * Continue current treatment plan. 06/16/2020: * Currently on 30 L with FiO2 of 35%. * Continues report he is feeling better. * Continues to utilize incentive spirometry and Acapella. Is proning regularly. * D-dimer has worsened today to nearly 9. Because of this we will discontinue Lovenox and start patient on 5 mg twice daily Eliquis. * Will decrease aspirin to 81 mg daily due to starting Eliquis. * Labs today: * WBC 13.41. * Hemoglobin 11.1. * Platelet 508,000. * Neutrophils 80.0. * D-dimer 8.75. * Sodium 139. * Potassium 3.7. * Anion gap 13.7. * BUN 27, creatinine 0.9, GFR greater than 60. * Glucose 112. * CRP 1.0. * Albumin 1.9. * Continue current treatment plan and attempt to wean oxygen. * Goal oxygen requirement prior to discharge is 2 L or less. - Plan Plan:: Acute respiratory failure COVID-19 determined by clinical diagnostic criteria Pneumonia due to COVID-19 virus Bradycardia, resolved Elevated D-dimer * O2 titrate to keep sats 88-96% * RT to continue with IS and acapella * Completed Rocephin and Azithromycin * Pt is out of the window for Remdesivir and has had monoclonal antibodies * Repeat labs in the AM, D-Dimer Q24h * Encourage prone positioning * Encourage ambulation in the room when awake * Continue daily dexamethasone - day 09/04 * Albuterol inhaler prn * Monitor blood sugars * Telemetry and continuous pulse oximetry * Continue zinc and vitamin D supplementation * Melatonin at bedtime * Decrease ASA to 81 mg as we have started on Eliquis * Highflow O2 as directed * O2 goal saturations of 88-96% * Airborne/contact precautions * Actemra given * Discontinue lovenox and start Eliquis 5mg BID due to worsening D-dimer * Consider repeat angiogram PCP: Liberty Palmer PA-C Code Status: Full code DVT prophylaxis: Lovenox and ASA GI prophylaxis: BID Pepcid Disposition: Patient admitted to the medical floor on telemetry for management of COVID-19 symptoms. LOS >96 HRS due to slow response to COVID-19 treatment
[2020-06-16] MEDS: Citalopram 20 MG Tab PO SCH (09:37)
[2020-06-16] MEDS: Enoxaparin 40 MG/0.4 ML Syringe SUBCUT SCH (09:37)
[2020-06-16] MEDS: Aspirin 325 MG Tab.EC PO SCH (09:37)
[2020-06-16] MEDS: Tamsulosin 0.4 MG Cap.ER PO SCH (09:38)
[2020-06-16] MEDS: Zinc Sulfate 220 MG Cap PO SCH (09:38)
[2020-06-16] MEDS: atorvaSTATin 20 MG Tab PO SCH (09:38)
[2020-06-16] MEDS: Cholecalciferol (Vitamin D3) 5,000 UNIT Cap PO SCH (09:38)
[2020-06-16] MEDS: Dexamethasone 4 MG Tab PO SCH (09:39)
[2020-06-16] MEDS: Benzonatate 100 MG Cap PO SCH ×3 (09:39→20:54)
[2020-06-16] MEDS: Fluticasone Propionate Nasal Spray 16 GM Bottle NASBOTH SCH (09:39)
[2020-06-16] MEDS: Famotidine 20 MG Tab PO SCH ×2 (09:40→20:54)
[2020-06-16] MEDS: Apixaban 5 MG Tab PO SCH (20:54)
[2020-06-16] MEDS: Melatonin 3 MG Tab PO SCH (20:55)
[2020-06-17] MEDS: Apixaban 5 MG Tab PO SCH ×2 (08:50→20:44)
[2020-06-17] MEDS: atorvaSTATin 20 MG Tab PO SCH (08:50)
[2020-06-17] MEDS: Benzonatate 100 MG Cap PO SCH ×3 (08:51→20:44)
[2020-06-17] MEDS: Tamsulosin 0.4 MG Cap.ER PO SCH (08:51)
[2020-06-17] MEDS: Zinc Sulfate 220 MG Cap PO SCH (08:51)
[2020-06-17] MEDS: Citalopram 20 MG Tab PO SCH (08:51)
[2020-06-17] MEDS: Dexamethasone 4 MG Tab PO SCH (08:51)
[2020-06-17] MEDS: Cholecalciferol (Vitamin D3) 5,000 UNIT Cap PO SCH (08:52)
[2020-06-17] MEDS: Aspirin 81 MG Tab.Chew PO SCH (08:52)
[2020-06-17] MEDS: Famotidine 20 MG Tab PO SCH ×2 (08:52→20:44)
[2020-06-17] MEDS: Fluticasone Propionate Nasal Spray 16 GM Bottle NASBOTH SCH (08:52)
--- NOTE | 2020-06-17 12:15 | PCM.PN ---
- General Info Date of Service: 06/17/20 Admission Dx/Problem (Free Text): Admission Diagnosis/Problem Admission Diagnosis/Problem Viral pneumonia Subjective Update: Irwin reports doing much better today. States he has a minimal cough however he is productive of chacon-colored sputum. He has been doing a good job of proning which has seemed to help significantly. He was on room air for a short bit this morning however was needed to be placed on oxygen at 2 L per nasal cannula. States he has been up more in the room ambulating. He is using his incentive spirometer and Acapella. States appetite is back at 100%. Denies any loss of taste or smell and denies any diarrhea. Functional Status: Reports: Pain Controlled, Tolerating Diet, Ambulating, Urinating, Incentive Spirometry - Review of Systems General: Reports: No Symptoms HEENT: Reports: No Symptoms Pulmonary: Reports: Shortness of Breath (with exertion), Cough (scant), Sputum (chacon). Denies: Wheezing Cardiovascular: Reports: Dyspnea on Exertion. Denies: Chest Pain, Palpitations, Edema Gastrointestinal: Reports: No Symptoms Genitourinary: Reports: No Symptoms Musculoskeletal: Reports: No Symptoms Skin: Reports: No Symptoms Neurological: Reports: No Symptoms Psychiatric: Reports: No Symptoms - Patient Data Vitals - Most Recent: Last Vital Signs Temp 98.1 F 06/17/20 07:24 Pulse 73 06/17/20 11:15 Resp 16 06/17/20 11:14 BP 106/74 06/17/20 11:14 Pulse Ox 90 L 06/17/20 11:15 Weight - Most Recent: 173 lb 8 oz I&O - Last 24 Hours: Intake & Output 06/16/20 06/17/20 06/17/20 22:59 06:59 14:59 Intake Total 1550 500 120 Output Total 475 550 Balance 1075 -50 120 Lab Results Last 24 Hours: Laboratory Results - last 24 hr 06/17/20 06/17/20 06/17/20 Range/Units 06:05 06:05 06:09 WBC 12.73 H (4.23-9.07) K/mm3 RBC 4.21 L (4.63-6.08) M/mm3 Hgb 12.0 L (13.7-17.5) gm/dl Hct 36.3 L (40.1-51.0) % MCV 86.2 (79.0-92.2) fl MCH 28.5 (25.7-32.2) pg MCHC 33.1 (32.2-35.5) g/dl RDW Std Deviation 44.4 H (35.1-43.9) fL Plt Count 497 H (163-337) K/mm3 MPV 10.2 (9.4-12.3) fl Neut % (Auto) 80.7 H (34.0-67.9) % Lymph % (Auto) 9.4 L (21.8-53.1) % [place] % (Auto) 9.0 (5.3-12.2) % Eos % (Auto) 0.5 L (0.8-7.0) Baso % (Auto) 0.1 (0.1-1.2) % Neut # (Auto) 10.26 H (1.78-5.38) K/mm3 Lymph # (Auto) 1.20 L (1.32-3.57) K/mm3 [place] # (Auto) 1.15 H (0.30-0.82) K/mm3 Eos # (Auto) 0.07 (0.04-0.54) K/mm3 Baso # (Auto) 0.01 (0.01-0.08) K/mm3 Manual Slide Review Abnormal smear D-Dimer, Quantitative 9.12 H (0.19-0.50) mg/L Sodium 140 (136-145) mEq/L Potassium 3.9 (3.5-5.1) mEq/L Chloride 106 (98-107) mEq/L Carbon Dioxide 24 (21-32) mEq/L Anion Gap 13.9 (5-15) BUN 24 H (7-18) mg/dL Creatinine 0.9 (0.7-1.3) mg/dL Est Cr Clr Drug Dosing 96.45 mL/min Estimated GFR (MDRD) > 60 (>60) mL/min BUN/Creatinine Ratio 26.7 H (14-18) Glucose 111 H (74-106) mg/dL Calcium 7.8 L (8.5-10.1) mg/dL Magnesium 2.2 (1.8-2.4) mg/dl Total Bilirubin 0.4 (0.2-1.0) mg/dL AST 20 (15-37) U/L ALT 54 (16-63) U/L Alkaline Phosphatase 58 (46-116) U/L Total Protein 5.6 L (6.4-8.2) g/dl Albumin 2.1 L (3.4-5.0) g/dl Globulin 3.5 gm/dL Albumin/Globulin Ratio 0.6 L (1-2) Joaquim Results Last 24 Hours: Microbiology 06/10/20 10:13 Aerobic Blood Culture - Final Blood - Venous NO GROWTH AFTER 7 DAYS Anaerobic Blood Culture - Final NO GROWTH AFTER 7 DAYS 06/10/20 10:20 Aerobic Blood Culture - Final Blood - Venous - Lab Draw NO GROWTH AFTER 7 DAYS Anaerobic Blood Culture - Final NO GROWTH AFTER 7 DAYS Med Orders - Current: Current Medications Acetaminophen (Acetaminophen 325 Mg Tab) 650 mg PO Q4H PRN PRN Reason: Pain (Mild 1-3)/fever Last Admin: 06/11/20 20:57 Dose: 650 mg Documented by: Albuterol/Ipratropium (Albuterol/Ipratropium 3.0-0.5 Mg/3 Ml Neb Soln) 3 ml NEB Q4H PRN PRN Reason: Shortness Of Breath/wheezing Apixaban (Apixaban 5 Mg Tab) 5 mg PO BID [facility] Last Admin: 06/17/20 08:50 Dose: 5 mg Documented by: Aspirin (Aspirin 81 Mg Tab.Chew) 81 mg PO DAILY [facility] Last Admin: 06/17/20 08:52 Dose: 81 mg Documented by: Atorvastatin Calcium (Atorvastatin 20 Mg Tab) 20 mg PO DAILY [facility] Last Admin: 06/17/20 08:50 Dose: 20 mg Documented by: Benzonatate (Benzonatate 100 Mg Cap) 100 mg PO TID [facility] Last Admin: 06/17/20 08:51 Dose: 100 mg Documented by: Cholecalciferol (Cholecalciferol (Vitamin D3) 5,000 Unit Cap) 5,000 unit PO DAILY [facility] Last Admin: 06/17/20 08:52 Dose: 5,000 unit Documented by: Citalopram Hydrobromide (Citalopram 20 Mg Tab) 40 mg PO DAILY [facility] Last Admin: 06/17/20 08:51 Dose: 40 mg Documented by: Dexamethasone (Dexamethasone 4 Mg Tab) 6 mg PO DAILY [facility] Stop: 06/19/20 09:01 Last Admin: 06/17/20 08:51 Dose: 6 mg Documented by: Docusate Sodium (Docusate Sodium 100 Mg Cap) 100 mg PO BID PRN PRN Reason: Constipation Famotidine (Famotidine 20 Mg Tab) 20 mg PO BID [facility] Last Admin: 06/17/20 08:52 Dose: 20 mg Documented by: Fluticasone Propionate (Fluticasone Propionate Nasal Bastian 16 Gm Bottle) 0 gm NASBOTH DAILY [facility] Last Admin: 06/17/20 08:52 Dose: 2 spray Documented by: Guaifenesin/Phenylephrine HCl (Guaifenesin/Dextromethorphan 100-10 Mg/5 Ml Soln 5 Ml Cup) 10 ml PO QID PRN PRN Reason: Cough Last Admin: 06/13/20 05:00 Dose: 10 ml Documented by: Melatonin (Melatonin 3 Mg Tab) 9 mg PO BEDTIME [facility] Last Admin: 06/16/20 20:55 Dose: 9 mg Documented by: Ondansetron HCl (Ondansetron 4 Mg Tab.Dis) 4 mg PO Q4H PRN PRN Reason: nausea, able to take PO Oxycodone HCl (Oxycodone 5 Mg Tab) 5 mg PO Q4H PRN PRN Reason: Pain (moderate 4-6) Sodium Chloride (Sodium Chloride 0.9% 10 Ml Syringe) 10 ml FLUSH ASDIRECTED PRN PRN Reason: Keep Vein Open Last Admin: 06/11/20 11:17 Dose: 10 ml Documented by: Tamsulosin HCl (Tamsulosin 0.4 Mg Cap.Er) 0.8 mg PO DAILY [facility] Last Admin: 06/17/20 08:51 Dose: 0.8 mg Documented by: Temazepam (Temazepam 15 Mg Cap) 15 mg PO BEDTIME PRN PRN Reason: Sleep Zinc Sulfate (Zinc Sulfate 220 Mg Cap) 220 mg PO DAILY [facility] Last Admin: 06/17/20 08:51 Dose: 220 mg Documented by: Discontinued Medications Aspirin (Aspirin 81 Mg Tab.Ec) 81 mg PO DAILY [facility] Last Admin: 06/12/20 09:00 Dose: 81 mg Documented by: Aspirin (Aspirin 325 Mg Tab.Ec) 325 mg PO DAILY [facility] Last Admin: 06/16/20 09:37 Dose: 325 mg Documented by: Dexamethasone (Dexamethasone 10 Mg/Ml Sd) 6 mg IVPUSH ONETIME ONE Stop: 06/10/20 10:26 Last Admin: 06/10/20 10:52 Dose: 6 mg Documented by: Dexamethasone (Dexamethasone 4 Mg Tab) 6 mg PO BID [facility] Last Admin: 06/14/20 20:17 Dose: 6 mg Documented by: Enoxaparin Sodium (Enoxaparin 40 Mg/0.4 Ml Syringe) 40 mg SUBCUT DAILY [facility] Last Admin: 06/13/20 09:10 Dose: 40 mg Documented by: Enoxaparin Sodium (Enoxaparin 40 Mg/0.4 Ml Syringe) 40 mg SUBCUT Q12H [facility] Last Admin: 06/16/20 09:37 Dose: 40 mg Documented by: Dextrose/Sodium Chloride (Dextrose 5%-Normal Saline) 1,000 mls @ 100 mls/hr IV ASDIRECTED [facility] Last Admin: 06/10/20 10:19 Dose: 100 mls/hr Documented by: Potassium Chloride 10 meq/ (Premix) 100 mls @ 100 mls/hr IV Q1H [facility] Stop: 06/10/20 14:29 Last Admin: 06/10/20 17:27 Dose: 100 mls/hr Documented by: Sodium Chloride (Normal Saline) 1,000 mls @ 50 mls/hr IV ASDIRECTED [facility] Last Admin: 06/11/20 20:57 Dose: 50 mls/hr Documented by: Ceftriaxone Sodium 2 gm/ (Sodium Chloride) 100 mls @ 200 mls/hr IV Q24H [facility] Stop: 06/14/20 13:29 Last Admin: 06/14/20 13:06 Dose: 200 mls/hr Documented by: Sodium Chloride (Normal Saline) 100 mls @ 60 mls/hr IV ASDIRECTED [facility] Stop: 06/11/20 15:00 Last Admin: 06/11/20 11:17 Dose: 60 mls/hr Documented by: Tocilizumab 600 mg/ Sodium (Chloride) 100 mls @ 100 mls/hr IV ONETIME ONE Stop: 06/13/20 11:59 Last Admin: 06/13/20 10:58 Dose: 100 mls/hr Documented by: Ibuprofen (Ibuprofen 600 Mg Tab) 600 mg PO ONETIME ONE Stop: 06/10/20 10:35 Last Admin: 06/10/20 10:51 Dose: 600 mg Documented by: Iopamidol (Iopamidol 755 Mg/Ml 100 Ml Bottle) 100 ml IVPUSH ONETIME ONE Stop: 06/11/20 11:11 Last Admin: 06/11/20 11:17 Dose: 100 ml Documented by: Morphine Sulfate (Morphine 2 Mg/Ml Syringe) 2 mg IVPUSH Q2H PRN PRN Reason: Pain (severe 7-10) Stop: 06/11/20 12:02 Sodium Chloride (Sodium Chloride 0.9% 10 Ml Syringe) 10 ml FLUSH ONETIME ONE Stop: 06/11/20 12:01 Last Admin: 06/11/20 12:40 Dose: 10 ml Documented by: - Exam Quality Assessment: Supplemental Oxygen (2 liters per nasal cannula), DVT Prop hylaxis (Eliquis) General: Alert, Oriented, Cooperative, Mild Distress HEENT: Pupils Equal, Mucous Membr. Moist/[place] Neck: Supple, Trachea Midline Lungs: Crackles (left posterior lobe). No: Clear to Auscultation, Normal Respiratory Effort Cardiovascular: Regular Rate, Regular Rhythm, Murmurs (grade 2 systolic murmur) GI/Abdominal Exam: Normal Bowel Sounds, Soft, Non-Tender, No Distention (Male) Exam: Deferred Back Exam: Normal Inspection, Full Range of Motion Extremities: Normal Inspection, Normal Range of Motion, Non-Tender, No Pedal Edema, Normal Capillary Refill Peripheral Pulses: 2+: Radial (L), Radial (R) Skin: Warm, Dry, Intact Neurological: No New Focal Deficit Psy/Mental Status: Alert, Normal Affect, Normal Mood - Patient Data Lab Results Last 24 hrs: Laboratory Results - last 24 hr 06/17/20 06/17/20 06/17/20 Range/Units 06:05 06:05 06:09 WBC 12.73 H (4.23-9.07) K/mm3 RBC 4.21 L (4.63-6.08) M/mm3 Hgb 12.0 L (13.7-17.5) gm/dl Hct 36.3 L (40.1-51.0) % MCV 86.2 (79.0-92.2) fl MCH 28.5 (25.7-32.2) pg MCHC 33.1 (32.2-35.5) g/dl RDW Std Deviation 44.4 H (35.1-43.9) fL Plt Count 497 H (163-337) K/mm3 MPV 10.2 (9.4-12.3) fl Neut % (Auto) 80.7 H (34.0-67.9) % Lymph % (Auto) 9.4 L (21.8-53.1) % [place] % (Auto) 9.0 (5.3-12.2) % Eos % (Auto) 0.5 L (0.8-7.0) Baso % (Auto) 0.1 (0.1-1.2) % Neut # (Auto) 10.26 H (1.78-5.38) K/mm3 Lymph # (Auto) 1.20 L (1.32-3.57) K/mm3 [place] # (Auto) 1.15 H (0.30-0.82) K/mm3 Eos # (Auto) 0.07 (0.04-0.54) K/mm3 Baso # (Auto) 0.01 (0.01-0.08) K/mm3 Manual Slide Review Abnormal smear D-Dimer, Quantitative 9.12 H (0.19-0.50) mg/L Sodium 140 (136-145) mEq/L Potassium 3.9 (3.5-5.1) mEq/L Chloride 106 (98-107) mEq/L Carbon Dioxide 24 (21-32) mEq/L Anion Gap 13.9 (5-15) BUN 24 H (7-18) mg/dL Creatinine 0.9 (0.7-1.3) mg/dL Est Cr Clr Drug Dosing 96.45 mL/min Estimated GFR (MDRD) > 60 (>60) mL/min BUN/Creatinine Ratio 26.7 H (14-18) Glucose 111 H (74-106) mg/dL Calcium 7.8 L (8.5-10.1) mg/dL Magnesium 2.2 (1.8-2.4) mg/dl Total Bilirubin 0.4 (0.2-1.0) mg/dL AST 20 (15-37) U/L ALT 54 (16-63) U/L Alkaline Phosphatase 58 (46-116) U/L Total Protein 5.6 L (6.4-8.2) g/dl Albumin 2.1 L (3.4-5.0) g/dl Globulin 3.5 gm/dL Albumin/Globulin Ratio 0.6 L (1-2) Result Diagrams: 06/17/20 06:05 06/17/20 06:05 Joaquim Results Last 24 hrs: Microbiology 06/10/20 10:13 Aerobic Blood Culture - Final Blood - Venous NO GROWTH AFTER 7 DAYS Anaerobic Blood Culture - Final NO GROWTH AFTER 7 DAYS 06/10/20 10:20 Aerobic Blood Culture - Final Blood - Venous - Lab Draw NO GROWTH AFTER 7 DAYS Anaerobic Blood Culture - Final NO GROWTH AFTER 7 DAYS Sepsis Event Note - Evaluation Sepsis Screening Result: No Definite Risk - Focused Exam Vital Signs: Vital Signs Temp Pulse Resp BP Pulse Ox 06/17/20 11:15 73 90 L 06/17/20 11:14 72 16 106/74 88 L 06/17/20 07:24 98.1 F 63 20 127/75 94 L 06/17/20 05:34 98.1 F 56 L 20 130/76 93 L - Problem List & Annotations (1) Acute respiratory failure SNOMED Code(s): 90077630 Code(s): J96.00 - ACUTE RESPIRATORY FAILURE, UNSP W HYPOXIA OR HYPERCAPNIA Status: Acute Priority: High Current Visit: Yes Qualifiers: Respiratory failure complication: hypoxia Qualified Code(s): J96.01 - Acute respiratory failure with hypoxia (2) COVID-19 determined by clinical diagnostic criteria SNOMED Code(s): 994712157, 736438449 Code(s): U07.1 - COVID-19 Status: Acute Priority: High Current Visit: Yes (3) Pneumonia due to COVID-19 virus SNOMED Code(s): 662606028970777992 Code(s): U07.1 - COVID-19; J12.82 - PNEUMONIA DUE TO CORONAVIRUS DISEASE 2019 Status: Acute Priority: High Current Visit: Yes - Problem List Review Problem List Initiated/Reviewed/Updated: Yes - Assessment Assessment:: 06/11/20 * Patient is outside the window for safe use of remdesivir as well his he is also had transfusion of immunomodulators * Allergic to azithromycin * Rocephin 2gm IV q 24 hours day 3/5 to treat Covid pneumonia * ASA 81mg daily * Dexamethasone 6mg po bid * IV fluids at 50 mL/h * IS and acapella * RT to titrate O2 * Lovenox for DVT prophylaxis * O2 saturations decreased into the 80's on 1 liter. Pt O2 increased to 3l/nc LABS: WBC 8.97->10.20 HGB 11.2->11.8 HCT 33.8->36.4 PLT 351->441 Neut% 86.3->85.7 Ddimer 1.07->2.27 K+ 3.2->3.8 Anion Gap 14.2->16.8 BUN 22->19 Cre 1.1->1.1 GFR >60 Gluc 115->142 Ca 8.2->8.1 LDH 347->346 Trop <0.017 CRP 23.3->17.8 ProBNP [address] of the chest: 1. No findings of pulmonary embolism 2. Diffuse parenchymal changes seen within both lungs compatible with so-called COVID-19 pneumonia. 3. No other acute abnormality is appreciated. 06/12/2020: * Patient has worsening respiratory status and is up to 6 L currently * Patient has not been proning or using his IS/acapella very much. We discussed this. * Increase aspirin to 325 daily. * Discontinue IV fluids. * Start 5000 unit vitamin D on 220 mg zinc supplementation. * Start Pepcid twice daily 20 mg for GI prophylaxis due to significant steroid * Continue current treatment plan. * Recheck labs tomorrow and D-dimer every 48. * Labs today: * WBC 14.74. * Hemoglobin of 10.5. * Neutrophils elevated 91.4%. * D-dimer 1.78. * Sodium 146. * Potassium 4.6. * Anion gap 14.2. * GFR greater than 60. * Glucose 167. * Hemoglobin A1c 6.4. * Bilirubin 0.3. * AST 31, ALT 10, alkaline phosphatase 67. * LDH 335. * CRP 7.6. * Albumin 1.9. * Blood cultures remain negative * Should patient continue to have decreasing saturations we will change to high flow O2. 06/13/2020: * Continues to have worsening respiratory status and difficulty recovering after activity. * Switched to high flow oxygen 50 L at 45%. * Given worsening respiratory status decision made to give patient Actemra * Recheck labs tomorrow, including D-dimer. * On high flow oxygen saturation in mid to upper 90s. * Labs today: * WBC 17.99. * Hemoglobin 11.1. * Platelet 510,000. * Sodium 147. * Anion gap 16.0. * BUN 21. Creatinine 1.0. GFR greater than 60. * Glucose 153. * Calcium 8.0. * CRP 4.8. * Albumin 2.0. * Consider decreasing steroid to once daily once patient stabilizes. * Given patient's prior bradycardia episode will order echocardiogram for shona rrow morning as this service is not available on weekends. * Consider upgrading patient to ICU status if respiratory status does not stabilize. 06/14/2020: * Is on high flow although improved to 40 L at 45%. * Reports he feels better today and clinically looks better today * D-dimer today is elevated substantially and due to this we will increase Lovenox to 40 mg twice daily * Consider repeat angiogram pending D-dimer results tomorrow. * Echocardiogram today * Labs today: * WBC 15.79. * Hemoglobin 11.2. * Platelet 544,000. * Neutrophils elevated at 90.6%. * D-dimer elevated at 5.98. * Sodium 142. * Potassium 4.0. * Anion gap 17.0. * BUN 24. Creatinine 1.0. GFR greater than 60. * CRP 4.5. * Albumin 2.0. * Continue current treatment plan. 06/15/2020: * Labs today: * WBC 16.48. * Hemoglobin 11.3. * Neutrophils elevated 90.3%. * D-dimer 5.60. * Sodium 140. * Potassium 3.9. * Anion gap 13.9. * BUN is 24. Creatinine 0.9. GFR greater than 60. * Glucose 156. * CRP 2.3. * Albumin 2.0. * On 40 L with FiO2 of 35%. * Trial nasal cannula today, unfortunately patient saturations dropped and he was placed back on high flow. * D-dimer has improved, CRP continues to trend downward. * Reports he feels pretty good * Clinically looks improved and tolerance with activity is improving. * Echocardiogram obtained on 06/14/2020: * 1. Left ventricular ejection fraction, by visual estimation, is 60 to 65%. * 2. Normal right ventricular size, wall thickness, and systolic function. * 3. Aortic valve is structurally normal and tricuspid. * 4. Trace mitral valve regurgitation. * 5. Trace tricuspid valve regurgitation. * 6. No regional wall motion abnormalities * Continue current treatment plan. 06/16/2020: * Currently on 30 L with FiO2 of 35%. * Continues report he is feeling better. * Continues to utilize incentive spirometry and Acapella. Is proning regularly. * D-dimer has worsened today to nearly 9. Because of this we will discontinue Lovenox and start patient on 5 mg twice daily Eliquis. * Will decrease aspirin to 81 mg daily due to starting Eliquis. * Labs today: * WBC 13.41. * Hemoglobin 11.1. * Platelet 508,000. * Neutrophils 80.0. * D-dimer 8.75. * Sodium 139. * Potassium 3.7. * Anion gap 13.7. * BUN 27, creatinine 0.9, GFR greater than 60. * Glucose 112. * CRP 1.0. * Albumin 1.9. * Continue current treatment plan and attempt to wean oxygen. * Goal oxygen requirement prior to discharge is 2 L or less. 06/17/20 * 3 L oxygen per nasal cannula * Progressively feeling better. * Has been proning when laying in bed. * Been using his incentive spirometer and Acapella regularly * Is up ambulating in the room * D-dimer continues to rise at 9.12. We will continue on Eliquis. * Labs today: WBC 12.73 Hgb 12.0 PLT 497,000 Neutrophils 80.7 D-dimer 9.12 Sodium 140 Potassium 3.9 Anion Gap 13.9 BUN24, creatinine 0.9, GFR >60 Glucose 111 Albumin 2.1 * Dietitian is consulting to increase the patient's albumin and total protein. * Patient will likely be discharged in the next day or 2 as we continue to weaken his oxygen down. - Plan Plan:: Acute respiratory failure COVID-19 determined by clinical diagnostic criteria Pneumonia due to COVID-19 virus Bradycardia, resolved Elevated D-dimer * O2 titrate to keep sats 88-96% * RT to continue with IS and acapella * Completed Rocephin and Azithromycin * Pt is out of the window for Remdesivir and has had monoclonal antibodies * Repeat labs in the AM, D-Dimer Q24h * Encourage prone positioning * Encourage ambulation in the room when awake * Continue daily dexamethasone - day 10/05 * Albuterol inhaler prn * Monitor blood sugars * Telemetry and continuous pulse oximetry * Continue zinc and vitamin D supplementation * Melatonin at bedtime * Decrease ASA to 81 mg as we have started on Eliquis * Highflow O2 as directed * O2 goal saturations of 88-96% * Airborne/contact precautions * Actemra given * Discontinue lovenox and start Eliquis 5mg BID due to worsening D-dimer * Echocardiogram results are pending PCP: Liberty Palmer PA-C Code Status: Full code DVT prophylaxis: Lovenox and ASA GI prophylaxis: BID Pepcid Disposition: Patient admitted to the medical floor on telemetry for management of COVID-19 symptoms. LOS >96 HRS due to slow response to COVID-19 treatment
[2020-06-17] MEDS: Melatonin 3 MG Tab PO SCH (20:44)
[2020-06-18] MEDS: Citalopram 20 MG Tab PO SCH (08:00)
[2020-06-18] MEDS: Fluticasone Propionate Nasal Spray 16 GM Bottle NASBOTH SCH (08:47)
[2020-06-18] MEDS: Zinc Sulfate 220 MG Cap PO SCH (08:48)
[2020-06-18] MEDS: Tamsulosin 0.4 MG Cap.ER PO SCH (08:48)
[2020-06-18] MEDS: Cholecalciferol (Vitamin D3) 5,000 UNIT Cap PO SCH (08:48)
[2020-06-18] MEDS: Aspirin 81 MG Tab.Chew PO SCH (08:48)
[2020-06-18] MEDS: Dexamethasone 4 MG Tab PO SCH (08:49)
[2020-06-18] MEDS: atorvaSTATin 20 MG Tab PO SCH (08:50)
[2020-06-18] MEDS: Famotidine 20 MG Tab PO SCH (08:50)
[2020-06-18] MEDS: Benzonatate 100 MG Cap PO SCH (08:51)
[2020-06-18] MEDS: Apixaban 5 MG Tab PO SCH (08:51)
[2020-06-18] MEDS ORDERED: Benzonatate 100 MG Cap PO PRN (14:25)
--- NOTE | 2020-06-18 15:57 | PCM.DCSUM1 ---
Discharge Summary - Hospital Course HPI Initial Comments: The patient is a 59-year-old gentleman who has presented to the emergency department with a complaint of fatigue, shortness of breath and had been previously diagnosed with COVID-19 on or about May 30, 2020. Patient has been complaining of cough. The cough has been nonproductive. He has had some fever and chills. The patient says that he had nausea and vomiting 2 days ago but none recently. The patient does not use tobacco. Patient's family also has been diagnosed with COVID-19. The patient has been taking medication for anxiety, hyperlipidemia and BPH. In the emergency department on room air the patient had been desaturating to 88%. Diagnosis: Stroke: No - Discharge Data Discharge Date: 06/18/20 (Admit date: 06/10/2020) Discharge Disposition: Home, Self-Care 01 Condition: Good - Referral to Home Health Primary Care Physician: FRANCIA Linares - Discharge Diagnosis/Problem(s) (1) Acute respiratory failure SNOMED Code(s): 63976793 ICD Code: J96.00 - ACUTE RESPIRATORY FAILURE, UNSP W HYPOXIA OR HYPERCAPNIA Status: Acute Priority: High Current Visit: Yes Qualifiers: Respiratory failure complication: hypoxia Qualified Code(s): J96.01 - Acute respiratory failure with hypoxia (2) COVID-19 determined by clinical diagnostic criteria SNOMED Code(s): 965440627, 476695274 ICD Code: U07.1 - COVID-19 Status: Acute Priority: High Current Visit: Yes (3) Hypoxia SNOMED Code(s): 238090130 ICD Code: R09.02 - HYPOXEMIA Status: Acute Priority: High Current Visit: Yes (4) Bradycardia SNOMED Code(s): 68145825 ICD Code: R00.1 - BRADYCARDIA, UNSPECIFIED Status: Acute Priority: High Current Visit: Yes (5) Hypokalemia SNOMED Code(s): 80591442 ICD Code: E87.6 - HYPOKALEMIA Status: Resolved Priority: High Current Visit: Yes (6) Elevated d-dimer SNOMED Code(s): 469830805 ICD Code: R79.89 - OTHER SPECIFIED ABNORMAL FINDINGS OF BLOOD CHEMISTRY Status: Acute Priority: High Current Visit: Yes - Patient Summary/Data Consults: Consultations 04/15/21 11:58 Respiratory Care Assess and Treatment [CONS] Routine Labs Pending at D/C: None Recommended Follow-up Testing/Procedures: Follow-up with primary care provider within 7 to 10 days of discharge, sooner if needed. -Recommend repeat CBC, CMP, and magnesium at that time -Patient was discharged on 4 L oxygen with activity. Monitor need for continued oxygen. -Consider repeat chest x-ray at that time. -Patient discharged on zinc and vitamin D supplementation -Patient was discharged on 5 mg twice daily Eliquis and 81 mg daily aspirin should be continued for a total of 30 days due to patient's high risk of VTE. Hospital Course: This is a 59-year-old male who presented to ED on 06/10/2020 with worsening shortness of breath and Covid pneumonia. Per the patient symptoms began around 05/30/2020. He was diagnosed positive with Covid pneumonia on 06/03/2020. The patient he was around a coworker who became symptomatic and later tested positive for Covid pneumonia. This coworker reportedly had very severe symptoms and ended up intubated on a ventilator. He was deemed outside the window for safe use of remdesivir. He had received immune modulators earlier in the week. He was started on IV Rocephin but azithromycin was not given as the patient is allergic. He was started on 81 mg of aspirin and 6 mg p.o. twice daily dexamethasone. CT scan of the chest was obtained showing no findings of pulmonary embolism however there was diffuse parenchymal changes seen within both lungs compatible with Covid pneumonia. This was obtained as the patient's D-dimer did elevate to 2.27. Patient's respiratory symptoms continued to worsen and he rapidly had greater oxygen requirements. Blood cultures were negative. He was instructed to utilize incentive spirometry and Acapella frequently, which he did. He was also instructed to prone frequently which he also did. Aspirin was increased to 325 mg daily and he was started on 5000 units of vitamin D and 220 mg of zinc supplementation. He was also started on Pepcid 20 mg twice daily for GI protection with his significant steroid use. He was also given 9 mg melatonin at bedtime. D-dimer continue to increase and patient was ultimately increased from his prophylactic dose of 40 mg daily Lovenox to 40 mg twice daily which is 0.5 mg/kg. As patient's D-dimer continue to climb patient was switched to 5 mg twice daily Eliquis. As high as D-dimer reached over 9 and then began to trend downward. Patient was requiring high flow oxygen and was given a single dose of Actemra. At his highest patient was requiring 50 L of oxygen at 45% FiO2 via high flow. Patient was noted to have an overnight with episodes of bradycardia with heart rate down to the 20s and 30s. Because of this echocardiogram was obtained on 06/14/2020: 1. Left ventricular ejection fraction, by visual estimation, is 60 to 65%. 2. Normal right ventricular size, wall thickness, and systolic function. 3. Aortic valve is structurally normal and tricuspid. 4. Trace mitral valve regurgitation. 5. Trace tricuspid valve regurgitation.6. No regional wall motion abnormalities. Ultimately patient was able to be weaned off of oxygen however he was requiring 4 L with activity. RT did qualify him for this at home. He completed 6 total days of dexamethasone, with several of those days being twice daily dose. He completed his antibiotic treatment. Clinically he is continue to improve and looks very good. Labs have remained very stable. He will be discharged home today. Prescription was sent for daily 220 mg zinc supplementation, daily 5000 unit vitamin D supplementation, 25 days of 81 mg aspirin and 25 days of 5 mg twice daily Eliquis. Patient was instructed to continue to utilize incentive spirometer and Acapella. He was instructed to continue to prone. He was instructed to take it easy and he reports that his boss told him to stay home from work next week. He was instructed to continue to isolate/quarantine for a total of 20 days from symptom onset. He was instructed to listen to his body and stay active but rest frequently. [facility] and as noted prior he should remain on room air when resting but apply 4 L with activity. Primary care provider should monitor oxygen need at follow-up visits. All home medications were continued. Recommend follow-up with primary care provider within 7 to 10 days of discharge, sooner if needed. Recommend repeat CBC, CMP, and magnesium at that visit. Consider repeat chest x-ray at that time. - Patient Instructions Diet: Diabetic Diet Activity: As Tolerated Driving: Do Not Drive (Until feeling better) Showering/Bathing: May Shower Notify Provider of: Fever, Increased Pain, Nausea and/or Vomiting Other/Special Instructions: Follow-up with primary care provider within 7 to 10 days of discharge, sooner if needed. Wear your oxygen as directed. You should wear 4 L with activity. You do not need oxygen if you are resting. Take it easy for the next week or so. You should continue to isolate/quarantine for 20 days from symptom onset. You stated the symptoms began on May 30 and that would mean you should can come off isolation on 06/20/2020 at 12 AM. You will likely be contacted by a rouge sifter and miller from the [facility]. Follow their directions. Continue to utilize your incentive spirometer (Clear/Blue device you inhale through) and Acapella (green tube you blow through) for 1-2 more weeks or until symptoms resolve. Continue to prone (lay on your belly) whenever possible. Resume home medications as directed. You were started on vitamin D supplementation and zinc supplementation while here. Some studies have shown that there may be a benefit to this and this will be continued at discharge. Your labs indicated that you are a very high risk for blood clots. Because of this you were started on aspirin and ultimately Eliquis, a type of blood thinner. This will be continued at discharge. You should take it for the time prescribed. You will likely not need either after that timeframe. Stay active and walk around your house. Listen to your body and do not overdo it. Rest often between activity. You completed your antibiotic and steroid treatment while here. You will not be prescribed anything at discharge. Should symptoms return or worsen you may contact your primary care provider or return to the emergency room. - Discharge Plan *PRESCRIPTION DRUG MONITORING PROGRAM REVIEWED*: Not Applicable *COPY OF PRESCRIPTION DRUG MONITORING REPORT IN PATIENT TOBY: Not Applicable Prescriptions/Med Rec: Aspirin 81 mg PO DAILY #30 tab.chew Apixaban [Eliquis] 5 mg PO BID #50 tablet Cholecalciferol (Vitamin D3) [Vitamin D3] 5,000 unit PO DAILY #20 cap Zinc Sulfate [Zincate] 220 mg PO DAILY #20 cap Home Medications: Home Meds Escitalopram [Lexapro] 20 mg PO DAILY 05/04/18 [History] Fluticasone Propionate [Flonase Allergy Relief] 2 spray NASBOTH DAILY 05/04/18 [History] Tamsulosin HCl [Flomax] 2 cap PO DAILY 05/04/18 [History] atorvaSTATin [Lipitor] 20 mg PO DAILY 05/04/18 [History] Apixaban [Eliquis] 5 mg PO BID #50 tablet 06/18/20 [Rx] Aspirin 81 mg PO DAILY #30 tab.chew 06/18/20 [Rx] Cholecalciferol (Vitamin D3) [Vitamin D3] 5,000 unit PO DAILY #20 cap 06/18/20 [Rx] Zinc Sulfate [Zincate] 220 mg PO DAILY #20 cap 06/18/20 [Rx] Oxygen Therapy Mode: Room Air Patient Handouts: COVID-19, Apixaban oral tablets, Prevent the Spread of COVID- 19 if You Are Sick - CDC, Sepsis, Self Care, Adult Forms: ED Department Discharge Referrals: Liberty Palmer PA-C [Primary Care Provider] - 07/01/20 11:15 am - Discharge Summary/Plan Comment DC Time >30 min.: Yes (45 mins ) - General Info Date of Service: 06/18/20 Admission Dx/Problem (Free Text: Admission Diagnosis/Problem Admission Diagnosis/Problem Viral pneumonia Functional Status: Reports: Pain Controlled, Tolerating Diet, Ambulating, Urina ting, Incentive Spirometry, Other (Acapella ). Denies: New Symptoms - Review of Systems General: Reports: Weakness (Improved - especially present with activity ). Denies: Fever, Fatigue, Malaise, Chills HEENT: Reports: No Symptoms. Denies: Headaches, Post Nasal Drip, Sinus Congestion, Sore Throat, Rhinitis Pulmonary: Reports: Cough (Occasional ). Denies: Shortness of Breath, Pleuritic Chest Pain, Sputum, Wheezing Cardiovascular: Reports: Dyspnea on Exertion. Denies: Chest Pain, Palpitations, Edema, Lightheadedness Gastrointestinal: Reports: No Symptoms. Denies: Abdominal Pain, Constipation, Diarrhea, Nausea, Vomiting Genitourinary: Reports: No Symptoms. Denies: Pain Musculoskeletal: Reports: No Symptoms Skin: Reports: No Symptoms. Denies: Cyanosis Neurological: Reports: No Symptoms. Denies: Confusion, Pre-Existing Deficit, Difficulty Walking, Gait Disturbance Psychiatric: Reports: No Symptoms - Patient Data Vitals - Most Recent: Last Vital Signs Temp 97.5 F 06/18/20 15:10 Pulse 43 L 06/18/20 15:10 Resp 16 06/18/20 15:10 BP 117/53 L 06/18/20 15:10 Pulse Ox 90 L 06/18/20 15:10 Weight - Most Recent: 170 lb I&O - Last 24 hours: Intake & Output 06/18/20 06/18/20 06/18/20 06:59 14:59 22:59 Intake Total 800 240 200 Balance 800 240 200 Lab Results - Last 24 hrs: Laboratory Results - last 24 hr 06/18/20 Range/Units 04:42 D-Dimer, Quantitative 5.73 H (0.19-0.50) mg/L GABRIEL Results - Last 24 hrs: Microbiology 06/10/20 10:13 Aerobic Blood Culture - Final Blood - Venous NO GROWTH AFTER 7 DAYS Anaerobic Blood Culture - Final NO GROWTH AFTER 7 DAYS 06/10/20 10:20 Aerobic Blood Culture - Final Blood - Venous - Lab Draw NO GROWTH AFTER 7 DAYS Anaerobic Blood Culture - Final NO GROWTH AFTER 7 DAYS Med Orders - Current: Current Medications Acetaminophen (Acetaminophen 325 Mg Tab) 650 mg PO Q4H PRN PRN Reason: Pain (Mild 1-3)/fever Last Admin: 06/11/20 20:57 Dose: 650 mg Documented by: Albuterol/Ipratropium (Albuterol/Ipratropium 3.0-0.5 Mg/3 Ml Neb Soln) 3 ml NEB Q4H PRN PRN Reason: Shortness Of Breath/wheezing Apixaban (Apixaban 5 Mg Tab) 5 mg PO BID [facility] Last Admin: 06/18/20 08:51 Dose: 5 mg Documented by: Aspirin (Aspirin 81 Mg Tab.Chew) 81 mg PO DAILY [facility] Last Admin: 06/18/20 08:48 Dose: 81 mg Documented by: Atorvastatin Calcium (Atorvastatin 20 Mg Tab) 20 mg PO DAILY [facility] Last Admin: 06/18/20 08:50 Dose: 20 mg Documented by: Benzonatate (Benzonatate 100 Mg Cap) 100 mg PO TID PRN PRN Reason: Cough Cholecalciferol (Cholecalciferol (Vitamin D3) 5,000 Unit Cap) 5,000 unit PO DAILY [facility] Last Admin: 06/18/20 08:48 Dose: 5,000 unit Documented by: Citalopram Hydrobromide (Citalopram 20 Mg Tab) 40 mg PO DAILY [facility] Last Admin: 06/18/20 08:00 Dose: 40 mg Documented by: Dexamethasone (Dexamethasone 4 Mg Tab) 6 mg PO DAILY [facility] Stop: 06/19/20 09:01 Last Admin: 06/18/20 08:49 Dose: 6 mg Documented by: Docusate Sodium (Docusate Sodium 100 Mg Cap) 100 mg PO BID PRN PRN Reason: Constipation Famotidine (Famotidine 20 Mg Tab) 20 mg PO BID [facility] Last Admin: 06/18/20 08:50 Dose: 20 mg Documented by: Fluticasone Propionate (Fluticasone Propionate Nasal [place] 16 Gm Bottle) 0 gm NASBOTH DAILY [facility] Last Admin: 06/18/20 08:47 Dose: 2 spray Documented by: Guaifenesin/Phenylephrine HCl (Guaifenesin/Dextromethorphan 100-10 Mg/5 Ml Soln 5 Ml Cup) 10 ml PO QID PRN PRN Reason: Cough Last Admin: 06/13/20 05:00 Dose: 10 ml Documented by: Melatonin (Melatonin 3 Mg Tab) 9 mg PO BEDTIME [facility] Last Admin: 06/17/20 20:44 Dose: 9 mg Documented by: Ondansetron HCl (Ondansetron 4 Mg Tab.Dis) 4 mg PO Q4H PRN PRN Reason: nausea, able to take PO Oxycodone HCl (Oxycodone 5 Mg Tab) 5 mg PO Q4H PRN PRN Reason: Pain (moderate 4-6) Sodium Chloride (Sodium Chloride 0.9% 10 Ml Syringe) 10 ml FLUSH ASDIRECTED PRN PRN Reason: Keep Vein Open Last Admin: 06/11/20 11:17 Dose: 10 ml Documented by: Tamsulosin HCl (Tamsulosin 0.4 Mg Cap.Er) 0.8 mg PO DAILY [facility] Last Admin: 06/18/20 08:48 Dose: 0.8 mg Documented by: Temazepam (Temazepam 15 Mg Cap) 15 mg PO BEDTIME PRN PRN Reason: Sleep Zinc Sulfate (Zinc Sulfate 220 Mg Cap) 220 mg PO DAILY [facility] Last Admin: 06/18/20 08:48 Dose: 220 mg Documented by: Discontinued Medications Aspirin (Aspirin 81 Mg Tab.Ec) 81 mg PO DAILY [facility] Last Admin: 06/12/20 09:00 Dose: 81 mg Documented by: Aspirin (Aspirin 325 Mg Tab.Ec) 325 mg PO DAILY [facility] Last Admin: 06/16/20 09:37 Dose: 325 mg Documented by: Benzonatate (Benzonatate 100 Mg Cap) 100 mg PO TID [facility] Last Admin: 06/18/20 08:51 Dose: 100 mg Documented by: Dexamethasone (Dexamethasone 10 Mg/Ml Sdv) 6 mg IVPUSH ONETIME ONE Stop: 06/10/20 10:26 Last Admin: 06/10/20 10:52 Dose: 6 mg Documented by: Dexamethasone (Dexamethasone 4 Mg Tab) 6 mg PO BID [facility] Last Admin: 06/14/20 20:17 Dose: 6 mg Documented by: Enoxaparin Sodium (Enoxaparin 40 Mg/0.4 Ml Syringe) 40 mg SUBCUT DAILY [facility] Last Admin: 06/13/20 09:10 Dose: 40 mg Documented by: Enoxaparin Sodium (Enoxaparin 40 Mg/0.4 Ml Syringe) 40 mg SUBCUT Q12H [facility] Last Admin: 06/16/20 09:37 Dose: 40 mg Documented by: Dextrose/Sodium Chloride (Dextrose 5%-Normal Saline) 1,000 mls @ 100 mls[facility] Last Admin: 06/10/20 10:19 Dose: 100 mls/hr Documented by: Potassium Chloride 10 meq/ (Premix) 100 mls @ 100 mls/hr IV Q1H [facility] Stop: 06/10/20 14:29 Last Admin: 06/10/20 17:27 Dose: 100 mls/hr Documented by: Sodium Chloride (Normal Saline) 1,000 mls @ 50 mls/hr IV ASDIRECTED [facility] Last Admin: 06/11/20 20:57 Dose: 50 mls/hr Documented by: Ceftriaxone Sodium 2 gm/ (Sodium Chloride) 100 mls @ 200 mls/hr IV Q24H [facility] Stop: 06/14/20 13:29 Last Admin: 06/14/20 13:06 Dose: 200 mls/hr Documented by: Sodium Chloride (Normal Saline) 100 mls @ 60 mls/hr IV ASDIRECTED [facility] Stop: 06/11/20 15:00 Last Admin: 06/11/20 11:17 Dose: 60 mls/hr Documented by: Tocilizumab 600 mg/ Sodium (Chloride) 100 mls @ 100 mls/hr IV ONETIME ONE Stop: 06/13/20 11:59 Last Admin: 06/13/20 10:58 Dose: 100 mls/hr Documented by: Ibuprofen (Ibuprofen 600 Mg Tab) 600 mg PO ONETIME ONE Stop: 06/10/20 10:35 Last Admin: 06/10/20 10:51 Dose: 600 mg Documented by: Iopamidol (Iopamidol 755 Mg/Ml 100 Ml Bottle) 100 ml IVPUSH ONETIME ONE Stop: 06/11/20 11:11 Last Admin: 06/11/20 11:17 Dose: 100 ml Documented by: Morphine Sulfate (Morphine 2 Mg/Ml Syringe) 2 mg IVPUSH Q2H PRN PRN Reason: Pain (severe 7-10) Stop: 06/11/20 12:02 Sodium Chloride (Sodium Chloride 0.9% 10 Ml Syringe) 10 ml FLUSH ONETIME ONE Stop: 06/11/20 12:01 Last Admin: 06/11/20 12:40 Dose: 10 ml Documented by: - Exam Quality Assessment: Reports: DVT Prophylaxis. Denies: Supplemental Oxygen, Urine Catheter General: Reports: Alert, Oriented, Cooperative, No Acute Distress HEENT: Reports: Pupils Equal, Pupils Reactive, Mucous Membr. Moist/[place] Neck: Reports: Supple, Trachea Midline Lungs: Reports: Normal Respiratory Effort, Decreased Breath Sounds. Denies: Crackles, Rhonchi, Wheezing Cardiovascular: Reports: Regular Rate, Regular Rhythm GI/Abdominal Exam: Normal Bowel Sounds, Soft, Non-Tender, No Distention (Male) Exam: Deferred Rectal (Males) Exam: Deferred Back Exam: Reports: Normal Inspection, Full Range of Motion Extremities: Normal Inspection, Normal Range of Motion, Non-Tender, No Pedal Edema, Normal Capillary Refill Skin: Reports: Warm, Dry, Intact Neurological: Reports: No New Focal Deficit Psy/Mental Status: Reports: Alert, Normal Affect, Normal Mood
== END 2020-06-18 16:54 | disposition home or self-care (01) | DRG 177 ==
LOC: JD.ED 09:15 → JD.MS 11:42
PROVIDERS: ADMIT Internal Medicine; ATTEND Internal Medicine
PROC: 5A0945A Assistance with Respiratory Ventilation, 24-96 Consecutive Hours, High Flow/Velocity Cannula (ICD-10-PCS; principal; 2020-06-10)
PROC: 8E0ZXY6 Isolation (ICD-10-PCS; principal; 2020-06-10)
DX: U07.1 COVID-19 (principal); J96.01 Acute respiratory failure with hypoxia; J12.82 Pneumonia due to coronavirus disease 2019; F41.9 Anxiety disorder, unspecified; E78.5 Hyperlipidemia, unspecified; N40.0 Benign prostatic hyperplasia without lower urinary tract symptoms; E87.6 Hypokalemia; R79.89 Other specified abnormal findings of blood chemistry; R00.1 Bradycardia, unspecified; H91.90 Unspecified hearing loss, unspecified ear; H54.7 Unspecified visual loss; E78.00 Pure hypercholesterolemia, unspecified; F32.9 Major depressive disorder, single episode, unspecified; Z87.891 Personal history of nicotine dependence; Z79.01 Long term (current) use of anticoagulants; Z79.82 Long term (current) use of aspirin; Z79.899 Other long term (current) drug therapy; Z88.1 Allergy status to other antibiotic agents; J30.9 Allergic rhinitis, unspecified
CPT/HCPCS: 36415; 71045; 71045-26; 71275; 71275-26; 80053; 81001; 83036; 83615; 83735; 83880; 84484; 85025; 85379; 85610; 85730; 86140; 87040; 93005; 93010; 93306; 94667; 94668; 94760; 94761; 94762; 96374; 99223; 99233; 99239; 99284; 99285-25; A9270-GY; J0696; J1100; J1650; J3262; J3480; J7030; J7042; J8540; Q9967